=== PATIENT | female | born 2000 | race Caucasian/White ===

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

== ENCOUNTER 2021-06-08 08:36 | Emergency (ER) | payer OTHER, SELFPAY ==
[2021-06-08 08:40] VITALS: BP 134/74; PULSE 90; RESP 16; TEMP 36.3; O2SAT 99
--- NOTE | 2021-06-08 08:52 | W.ED.GENAD ---
Discharge Plan Disposition Patient Disposition: HOME Condition: Stable Discharge Details Clinical Impression: Laceration of left index finger Primary Care Provider: Meseret Rolon ED Provider: Yanira Shetty Home Meds and New Rx's Prescriptions: Continued loratadine 10 mg tablet 10 mg PO DAILY PRN (Reason: allergy symptoms) Qty: 90 RF: 4 clindamycin-benzoyl peroxide [Benzaclin] 1-5 % gel 1 applic topical DAILY Qty: 35 RF: 1 medroxyprogesterone 150 mg/mL syringe 150 mg IM [id number] Qty: 1 RF: 5 fluticasone propionate 16 GM spray,suspension 1 spray NS BID PRNQty: 16 RF: 2 albuterol sulfate [ProAir HFA] 90 mcg/actuation HFA aerosol inhaler 2 puff Inhalation Q4H Qty: 8.5 RF: 3 No Action tretinoin 0.025 % cream 1 applic topical QHS Qty: 45 RF: 1 ketotifen fumarate [Allergy Eye (ketotifen)] 10 ML drops 0 Ophthalmic BID PRNRF: 0 azelastine [Astepro] 205.5 MCG/0.137 ML spray,non-aerosol 1 spray NS BID PRNQty: 1 RF: 2 Flovent HFA 110 mcg/actuation HFA aerosol inhaler 2 puff Inhalation BID Qty: 1 RF: 0 Discharge Instructions Instructions: Finger Laceration (ED) Additional Instructions: Please keep clean and dry. Allowed to air dry at least 2 hours a day. Keep covered while at work or school. No soaking. May wash under running soap and water after 12 to 24 hours. After approximately 3 days scab should form. May apply antibiotic ointment for the first day if desired. Return to the ER for any signs of infection including red streaks, drainage, severe increased pain or swelling. Follow up with primary care provider in 3-5 days if needed. Return to ED sooner if any worsening or concerns. Increase oral fluids. Please take Tylenol or Ibuprofen with food every 4-6 hours as needed for pain and swelling. Stand Alone Forms: Work Release Referrals: Meseret Rolon [Primary Care Provider] - Return if symptoms worsen Discharge Data Discharge Date/Time-TO BE ENTERED AT DEPARTURE: 06/08/21 09:59 Medical Decision Making 20-year-old female presents to the ER chief complaint of left index finger avulsion injury which occurred approximately hour ago while at work. Patient states that she was cutting a cantaloupe and sustained a small approximately 0.3 cm avulsion to the dorsum of her left index finger. She does have full range of motion and intact sensation to the digit bleeding is controlled upon initial exam. This wound is nonsuturable at this time. Will place a nonadherent bandage and wrap. Last tetanus shot was 7 years ago according to medical records reviewed. No other associated symptoms at this time. Past medical history includes asthma, depression, allergies. Patient is right-hand dominant. Wound was cleaned with sterile normal saline and chlorhexidine by unit staff. Tissue adhesive applied. Will instruct patient on home care and strict return instructions. HPI General Mode of arrival: ambulatory. Date/Time Provider Initiated Documentation: 06/08/21 08:38. Limitations to Documentation: no limitations. Information obtained by: patient and RN notes reviewed. HPI Narrative: 20-year-old female presents to the ER chief complaint of left index finger avulsion injury which occurred approximately hour ago while at work. Patient states that she was cutting a cantaloupe and sustained a small approximately 0.3 cm avulsion to the dorsum of her left index finger. She does have full range of motion and intact sensation to the digit bleeding is controlled upon initial exam. This wound is nonsuturable at this time. Will place a nonadherent bandage and wrap. Last tetanus shot was 7 years ago according to medical records reviewed. No other associated symptoms at this time. Past medical history includes asthma, depression, allergies. Patient is right-hand dominant. Related Data Home Medications Medication Instructions Recorded Confirmed ketotifen fumarate [Allergy Eye 0 OPHTHALMIC BID PRN 02/11/14 11/06/20 (ketotifen)] azelastine [Astepro] 1 spray NS BID PRN #1 bot 12/23/15 06/08/21 fluticasone propionate 1 spray NS BID PRN #16 gm 12/23/15 06/08/21 albuterol sulfate 90 mcg/actuation 2 puff INHALATION Q4H #8.5 gm 01/01/19 11/06/20 aerosol inhaler fluticasone propionate 110 2 puff INHALATION BID #1 inhaler 01/01/19 06/08/21 mcg/actuation HFA aerosol inhaler tretinoin 0.025 % topical cream 1 applic TOPICAL QHS #45 g 06/19/20 06/08/21 clindamycin 1 %-benzoyl peroxide 5 1 applic TOPICAL DAILY #35 g 08/04/20 06/08/21 % topical gel loratadine 10 mg tablet 10 mg PO DAILY PRN #90 tab-cap 08/04/20 06/08/21 medroxyprogesterone 150 mg/mL 150 mg IM [id number] #1 ml 11/17/20 06/08/21 intramuscular syringe Previous Rx's Medication Instructions Recorded albuterol sulfate 90 mcg/actuation 2 puff INHALATION Q4H #8.5 gm 01/01/19 aerosol inhaler fluticasone propionate 110 2 puff INHALATION BID #1 inhaler 01/01/19 mcg/actuation HFA aerosol inhaler tretinoin 0.025 % topical cream 1 applic TOPICAL QHS #45 g 06/19/20 clindamycin 1 %-benzoyl peroxide 5 1 applic TOPICAL DAILY #35 g 08/04/20 % topical gel loratadine 10 mg tablet 10 mg PO DAILY PRN #90 tab-cap 08/04/20 medroxyprogesterone 150 mg/mL 150 mg IM [id number] #1 ml 11/17/20 intramuscular syringe Allergies Allergy/AdvReac Type Severity Reaction Status Date / Time No Known Allergies Allergy Verified 06/08/21 08:45 General Stated Complaint: Laceration SUMA: 4 Review of Systems All systems reviewed & are unremarkable except as noted in HPI and below Integumentary/Breasts Skin/Breast: Reports as per HPI and Reports wounds (Avulsion, laceration left index finger) [facility] Medical History Abnormal bruising Acne Allergic rhinitis (01/01/14) 01/03/13-Followed by [facility] Allergy- allergies to dust mites, cat, dog, other animals, tree, grass, weeds, mouse Anxiety and depression Asthma (01/01/14) intermittent trigger- allergies and URI's Congenital hallux valgus of both feet (02/21/17) Constipation with ileus Contraception Depression (04/25/17) Pain in lower jaw Respiratory syncytial virus bronchiolitis Surgical History [place] teeth extracted Family History Mother Personal history of malignant neoplasm breast cancer Mental disorder anxiety, panic disorder Other Diabetes MGM, maternal great grandparents Asthma maternal side Sister Asthma Social History Smoking/Tobacco Use Status: Current every day Tobacco Type: e-cigarettes Second Hand Exposure: No Smoking risk assessment performed?: Yes Alcohol Intake: never Substance use type: does not use Household members: family Housing: house Education Level: college Details: Starting [employer] Fall 2019- will live in dorm Pets and animals: Yes (2 dogs) Pets and animals: dog(s) Female Reproductive History Menstrual control method: progesterone injection History History 0 Para Hx # Term Pregnancies Multiple births Hx # Pregnancies Ectopic pregnancies AB induced Hx Number of Living Children AB spontaneous Exam Extrem Hand/finger images: 1. Avulsion down to second layer of dermis. FROM, sensation intat, CMS intact distally to injury. Course Vital Signs Vital signs: Vital Signs Temperature 36.3 C L 06/08/21 08:40 Pulse 90 06/08/21 08:40 Respiratory Rate 16 06/08/21 08:40 Blood Pressure 134/74 06/08/21 08:40 Pulse Oximetry 99 06/08/21 08:40 Temperature 36.3 C L 06/08/21 08:40 Temperature Source Skin 06/08/21 08:40 Pulse 90 06/08/21 08:40 Respiratory Rate 16 06/08/21 08:40 Respiratory Effort Non-Labored 06/08/21 08:40 Blood Pressure 134/74 06/08/21 08:40 Blood Pressure Position Sitting 06/08/21 08:40 Pulse Oximetry 99 06/08/21 08:40 Oxygen Delivery Method Room Air 06/08/21 08:40 Oxygen Flow Rate 0 06/08/21 08:40 Pain Level 6 06/08/21 08:40 Procedures Laceration Laceration 1: Site: hand (left index) Side (If applicable): left Size (cm): 0.3 Description: clean and other (Avulsion) Depth: simple, single layer Pre-repair: irrigated extensively Skin layer closed with: other (tissue adhesive )
[2021-06-08 09:17] VITALS: BP 134/74; PULSE 90; RESP 16; TEMP 36.3; O2SAT 99
== END 2021-06-08 09:59 | disposition home or self-care (01) ==
PROVIDERS: Emergency Provider Registered Nurse Emergency; PCP Nurse Practitioner Pediatrics
DX: S61.211A Laceration without foreign body of left index finger without damage to nail, initial encounter (principal); W26.0XXA Contact with knife, initial encounter; Y99.0 Civilian activity done for income or pay; Y93.G1 Activity, food preparation and clean up
CPT/HCPCS: 12001

== ENCOUNTER 2021-06-17 21:40 | Outpatient (REF) | payer OTHER, MEDICAID, SELFPAY ==
[2021-06-19 15:27] LABS: COVID-19 RT-PCR UVMMC Result Negative (Negative)
== END 2021-06-17 21:41 | disposition home or self-care (01) ==
LOC: LBN 21:40
PROVIDERS: PCP Nurse Practitioner Pediatrics; Visit Provider Nurse Practitioner Family
DX: Z20.822 Contact with and (suspected) exposure to COVID-19 (principal); J02.9 Acute pharyngitis, unspecified
CPT/HCPCS: U0003; 87070

== ENCOUNTER → 2022-05-27 16:42 | Outpatient (CLI) | payer OTHER, MEDICAID, SELFPAY ==
--- NOTE | 2022-05-27 16:00 | DI.RAD_ITS ---
Exam(s) XR ABDOMEN FLAT UPRIGHT EXAM: XR ABDOMEN FLAT UPRIGHT CLINICAL HISTORY: abdominal pain, R10.9. TECHNIQUE: 2D digital imaging was performed. COMPARISON: CR ABDOMEN FLAT PLATE from 12/23/2013 FINDINGS: 3 views Visualized lung bases are clear. Bowel gas pattern is nonspecific. No evidence of bowel obstruction . No free air. Normal amount of fecal material in the colon. No calcification over the kidneys in course of the ureters. Incidentally noted is transitional lumbosacral anatomy in the LS spine. IMPRESSION: Nonspecific bowel gas pattern. No obstruction. No free air. Other findings as above. DATA REPOSITORY: RADIATION DOSE DELIVERED:
== END ==
PROVIDERS: PCP Nurse Practitioner Pediatrics; Visit Provider Nurse Practitioner Family
DX: R10.9 Unspecified abdominal pain (principal)
CPT/HCPCS: 74019

== ENCOUNTER 2022-05-27 18:40 | Outpatient (CLI) | payer OTHER, MEDICAID, SELFPAY ==
[2022-05-27 16:16] LABS: Abs Immature Grans 0.03 10^3/uL (0.0-0.06); Absolute Basophil Count 0.07 10^3/uL (0.0-0.2); Absolute Eosinophil Count 0.25 10^3/uL (0.0-0.7); Absolute Lymphocyte Count 2.18 10^3/uL (1.2-3.4); Absolute Monocyte Count 0.57 10^3/uL (0.1-0.8); Basophils % 0.9; Eosinophils % 3.4; HCT 39.1 % (36.0-46.0); HGB 13.8 g/dL (11.2-15.7); Immature Grans % 0.4; Lymphocytes % 29.5; MCH 30.7 pg (27.0-33.0); MCHC 35.3 % (32.0-36.0); MCV 87 fL (80-95); MPV 9.1 fL (8.0-11.0); Monocytes % 7.7; Neutrophils % 58.1; Platelet Count 315 10^3/uL (130-400); RBC 4.49 10^6/uL (3.93-5.22); RDW-SD 38.6 fL
[2022-05-27 16:45] LABS: ALT 13 U/L (14-59); AST 12 U/L (15-37); Albumin 4.5 g/dL (3.4-5.0); Alkaline Phosphatase 55 U/L (46-116); Amylase 67 U/L (25-115); Anion Gap 11.8 mmol/L (3-11); BUN 11 mg/dL (7-18); Bilirubin, Total 0.5 mg/dL (0.2-1.0); CO2 23.2 mmol/L (21.0-32.0); Calcium 9.1 mg/dL (8.5-10.1); Chloride 104 mmol/L (98-107); Estimated GFR 82.71 (mL/min/1.73m2); Glucose 92 mg/dL (74-106); Lipase 141 U/L (73-393); Potassium 3.5 mmol/L (3.5-5.1); Sodium 139 mmol/L (136-145); Total Protein 8.3 g/dL (6.4-8.2)
== END 2022-05-27 18:41 | disposition home or self-care (01) ==
LOC: LBO 18:41
PROVIDERS: PCP Nurse Practitioner Pediatrics; Visit Provider Nurse Practitioner Family
DX: R10.9 Unspecified abdominal pain (principal)
CPT/HCPCS: 36415; 80053; 83690; 82150; 85025

== ENCOUNTER 2022-08-16 23:08 | Emergency (ER) | payer OTHER, MEDICAID, SELFPAY ==
[2022-08-16 23:12] VITALS: BP 131/72; PULSE 88; RESP 16; TEMP 36.9; O2SAT 97
--- NOTE | 2022-08-16 23:15 | DI.CT_ITS ---
Exam(s) CT ABDOMEN PELVIS W EXAM: CT ABDOMEN PELVIS W INDICATION: rlq pain, r/o appe. COMPARISON: No exams were available for comparison TECHNIQUE: FINDINGS: CT examination of the abdomen and pelvis was performed with intravenous infusion of 100 cc of Omnipaq ue 350. Images obtained through the lung bases are unremarkable. The liver is unremarkable in appearance. Gallbladder and bile ducts are CT normal. Pancreas appears normal. Spleen is unremarkable in appearance. Adrenals appear normal. There is a small nonobstructing right renal stone period otherwise the kidneys are unremarkable appea regi with no evidence of mass hydronephrosis. No ureteral calcification. Urinary bladder nearly em pty but grossly unremarkable. Abdominal aorta is of normal diameter and no major vascular abnormality is seen. No abdominal wall hernia. No abdominal or pelvic adenopathy. 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 Appendix is normal. No evidence of diverticulitis or bowel obstruction. IMPRESSION: Negative CT examination of the abdomen and pelvis. RADIATION DOSE DELIVERED: 682.67mGy.cm Total DLP 682.67mGy.cm Total DLP RADIATION OPTIMIZATION: All CT scans at this facility use at least one of these dose optimization te chniques: automated exposure control; mA and/or kV adjustment per patient size (includes targeted exa ms where dose is matched to clinical indication); or iterative reconstruction.
[2022-08-16 23:23] LABS: Bilirubin Negative (Negative); Blood Trace-intact (Negative); Clarity Cloudy (Clear); Glucose Negative (Negative); Ketones Trace mg/dL (Negative); Leukocyte Esterase Negative (Negative); Nitrite Negative (Negative); Specific Gravity 1.025 (1.005-1.025); pH 7.5 (5-8)
--- NOTE | 2022-08-16 23:30 | ED.GENADUL_ITS ---
Discharge Plan Disposition Patient Disposition: Home Condition: Good Discharge Details Chief Complaint: Abd Prob Clinical Impression: Abdominal discomfort Primary Care Provider: Meseret Rolon ED Provider: Joseph Leigh Home Meds and New Rx's Prescriptions: No Action clindamycin-benzoyl peroxide [Benzaclin] 1-5 % gel 1 applic topical DAILY Qty: 35 1RF Rx Instructions: apply to clean dry skin in the morning and wash off in the evening loratadine 10 mg tablet 10 mg PO DAILY PRN (Reason: allergy symptoms) Qty: 90 4RF Rx Instructions: take one tablet once a day at bedtime (DME) RiteFlo Aerochamber Spacer See Rx Instructions .Route Qty: 1 0RF Rx Instructions: As directed medroxyprogesterone [Depo-Provera] 150 mg/mL syringe 150 mg IM ONCE Qty: 1 0RF triamcinolone acetonide 0.1 % ointment 1 applic topical BID Qty: 30 1RF Rx Instructions: apply thin layer to eczema lesions twice a day for 7 days docusate sodium [Colace] 100 mg capsule 100 mg PO DAILY Qty: 60 1RF esomeprazole magnesium [Nexium] 20 mg capsule,delayed release(DR/EC) 20 mg PO DAILY Qty: 30 1RF azelastine [Astepro] 205.5 MCG/0.137 ML spray,non-aerosol 1 spray NS BID PRNQty: 1 Rx Instructions: use for allergies albuterol sulfate [ProAir HFA] 90 mcg/actuation HFA aerosol inhaler 2 puff Inhalation Q4H Qty: 8.5 3RF Rx Instructions: take 2 puffs (5 minutes apart) 15 minutes prior to exercise and every 4 hours as needed for wheezing Discharge Instructions Instructions: Abdominal Pain (ED) Additional Instructions: At this time your laboratory work-up and CAT scan showed no significant abnormalities. Your work-up is reassuring. Please continue to take Tylenol and Motrin as needed for pain. If you notice any worsening of your symptoms, or any new symptoms such as vomiting, diarrhea, fever, chills, shortness of breath, chest pain, numbness, weakness, or fainting , please return immediately to the emergency department for reevaluation. Please follow up with your primary care provider as soon as possible for reassessment and reevaluation. As always, it was a pleasure participating in your medical care today. Referrals: Meseret Rolon NP [Primary Care Provider] - Medical Decision Making This is a pleasant 22-year-old female with a past medical history of GERD, who presents today for evaluation of right lower quadrant pain. Patient states that at 8 PM sharp she developed sudden onset sharp right lower quadrant pain. Does not appear to be related to food. She took Tylenol at 7 PM for headache, but is otherwise taking no medications. She denies any vomiting or diarrhea. She denies any vaginal discharge or urinary complaints. She has never had pain like this before. No other complaints at this time. Pain is constant, not waxing and waning. Worse with palpation. Exam demonstrates a well-appearing female, mild right lower quadrant tenderness, positive Rovsing's, negative obturator and psoas sign. Differential includes appendicitis, ovarian cyst, but symptoms are inconsistent at this time with torsion. We will get a CT scan, treat the patient's pain, monitor closely and reassess. 12:38 AM On reassessment patient is feeling much better. Repeat exam continues to show no evidence of an acute surgical abdomen. Laboratory work-up is returned notably benign. No significant abnormalities. Lactate normal. No white count bandemia or left shift. Urinalysis negative for significant blood or infection. CT scan results have returned, no acute process per virtual radiology. At this time symptoms are clinically inconsistent with tubo-ovarian abscess, ovarian torsion, appendicitis, or other acute surgical abnormality clinically. Patient stable for discharge. Recommend continue NSAIDs at home. Recommend continued hydration at home. Discussed red flags for which to return. I have extensively reviewed the treatment plan and discharge instructions with the patient and their family. I have addressed all patient concerns at this time. The patient and family was made aware of what symptoms to monitor for that would warrant a return to the emergency department. Discussed the plan with the patient and family, they demonstrate verbal understanding and agreement with our assessment and plan at this time. The documentation in this chart was dictated using [employer] dictation software. Please excuse any dictation errors. FINDINGS: Liver: Normal. No mass. Gallbladder and bile ducts: Normal. No calcified stones. No ductal dilation. Pancreas: Normal. No ductal dilation. Spleen: Normal. No splenomegaly. Adrenal glands: Normal. No mass. Kidneys and ureters: Normal. No hydronephrosis. Stomach and bowel: Unremarkable. No obstruction. No mucosal thickening. Appendix: No evidence of appendicitis. Intraperitoneal space: Unremarkable. No free air. No significant fluid collection. Vasculature: Unremarkable. No abdominal aortic aneurysm. Lymph nodes: Unremarkable. No enlarged lymph nodes. Urinary bladder: Unremarkable as visualized. Reproductive: Unremarkable as visualized. Bones/joints: Unremarkable. No acute fracture. Soft tissues: Unremarkable. IMPRESSION: No acute findings. Thank you for allowing us to participate in the care of your patient. Dictated and Authenticated by: Jose Fabian MD 08/17/2022 12:30 AM Eastern Time ([place] & [place]) Sign Out No HPI General Date/Time Provider Initiated Documentation: 08/16/22 23:10 . HPI Narrative: This is a pleasant 22-year-old female with a past medical history of GERD, who presents today for evaluation of right lower quadrant pain. Patient states that at 8 PM sharp she developed sudden onset sharp right lower quadrant pain. Does not appear to be related to food. She took Tylenol at 7 PM for headache, but is otherwise taking no medications. She denies any vomiting or diarrhea. She denies any vaginal discharge or urinary complaints. She has never had pain like this before. No other complaints at this time. Pain is constant, not waxing and waning. Worse with palpation. Related Data Home Medications Medication Instructions Recorded Confirmed azelastine 205.5 mcg (0.15 %) 1 spray NS BID PRN ##1 12/23/15 08/17/22 nasal spray (Astepro) clindamycin 1 %-benzoyl peroxide 5 1 applic topical DAILY #35 grams 08/04/20 08/17/22 % topical gel (Benzaclin) triamcinolone acetonide 0.1 % 1 applic topical BID #30 grams 09/16/21 08/17/22 topical ointment inhalational spacing device #1 ea 01/17/22 07/21/22 (RiteFlo Aerochamber) loratadine 10 mg tablet 10 mg PO DAILY PRN allergy 01/17/22 08/17/22 symptoms #90 tab-caps albuterol sulfate 90 mcg/actuation 2 puff inhalation Q4H #8.5 grams 07/15/22 08/17/22 aerosol inhaler (ProAir HFA) docusate sodium 100 mg capsule 100 mg PO DAILY #60 caps 07/21/22 08/17/22 (Colace) esomeprazole magnesium 20 mg 20 mg PO DAILY #30 caps 07/21/22 08/17/22 capsule,delayed release (Nexium) Previous Rx's Medication Instructions Recorded clindamycin 1 %-benzoyl peroxide 5 1 applic topical DAILY #35 grams 08/04/ % topical gel (Benzaclin) triamcinolone acetonide 0.1 % 1 applic topical BID #30 grams 09/16/21 topical ointment inhalational spacing device #1 ea 01/17/22 (RiteFlo Aerochamber) loratadine 10 mg tablet 10 mg PO DAILY PRN allergy 01/17/22 symptoms #90 tab-caps albuterol sulfate 90 mcg/actuation 2 puff inhalation Q4H #8.5 grams 07/15/22 aerosol inhaler (ProAir HFA) docusate sodium 100 mg capsule 100 mg PO DAILY #60 caps 07/21/22 (Colace) esomeprazole magnesium 20 mg 20 mg PO DAILY #30 caps 07/21/22 capsule,delayed release (Nexium) Allergies Allergy/AdvReac Type Severity Reaction Status Date / Time No Known Allergies Allergy Verified 07/21/22 10:00 General Stated Complaint: Abd Prob SUMA: 3 Review of Systems All systems reviewed & are unremarkable except as noted in HPI and below PFSH All Active Problems (Updated 08/17/22 @ 00:41 by Joseph Leigh DO) Abdominal discomfort (Acute) Abdominal pain (Acute) Eczema (Acute) Laceration of left index finger (Acute) Temporomandibular joint disorder (Acute) Abnormal bruising (Acute) Acne (Acute) Pain in lower jaw (Acute) Anxiety and depression (Acute) Contraception (Chronic) 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) Asthma (Chronic 01/01/14) intermittent trigger- allergies and URI's Allergic rhinitis (Chronic 01/01/14) 01/03/13-Followed by [facility] Allergy- allergies to dust mites, cat, dog, other animals, tree, grass, weeds, mouse Medical History Constipation with ileus Respiratory syncytial virus bronchiolitis Surgical History Mitchell teeth extracted Family History Mother Personal history of malignant neoplasm breast cancer Mental disorder anxiety, panic disorder Other Diabetes MGM, maternal great grandparents Asthma maternal side Sister Asthma Social History Smoking/Tobacco Use Status: Current every day Tobacco Type: e-cigarettes Second Hand Exposure: No Smoking risk assessment performed?: Yes Alcohol Intake: never Substance use type: does not use Household members: family Housing: house Education Level: college Details: Starting [employer] Fall 2019- will live in dorm Pets and animals: Yes (2 dogs) Pets and animals: dog(s) Female Reproductive History Menstrual control method: progesterone injection History History 0 Para Hx # Term Pregnancies Multiple births Hx # Pregnancies Ectopic pregnancies AB induced Hx Number of Living Children AB spontaneous Exam Narrative Exam Narrative: 1.Const: Well-nourished, Well-developed, appearing stated age 2.Eyes: PERRL, no conjunctival injection, and symmetrical lids. 3.ENT: Atraumatic external nose and ears. Moist MM. Neck: Symmetric, trachea midline, No thyromegaly. 4.CVS: +S1/S2, No murmurs or gallops. Peripheral pulses 2+ and equal in all extremities. Brisk capillary refill in all extremities. 5.RESP: Unlabored respiratory effort. Clear to auscultation bilaterally. No wheezes rales or rhonchi 6.GI: Soft, nondistended, no guarding or rebound. Mild pain in the right lower quadrant. Positive Rovsing sign. No peritoneal signs. Negative Flynn sign. No CVA tenderness. Positive right heel strike test, negative obturator and psoas sign. 7.MSK: Normocephalic/Atraumatic, Extremities w/o deformity or ttp No cyanosis or clubbing, Normal movement of all extremities 8.Skin: Warm, Dry. No rashes or lesions. 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 Sensation grossly intact, no focal neurologic deficits. 10.Psych: (AAO) x3. Appropriate mood and affect Course Vital Signs Vital signs: Vital Signs Temperature 36.9 C 08/16/22 23:12 Pulse 88 08/16/22 23:12 Respiratory Rate 16 08/16/22 23:12 Blood Pressure 131/72 08/16/22 23:12 Pulse Oximetry 97 08/16/22 23:12 Temperature 36.9 C 08/16/22 23:12 Temperature Source Temporal Artery Scan 08/16/22 23:12 Pulse 88 08/16/22 23:12 Respiratory Rate 16 08/16/22 23:12 Respiratory Effort 08/16/22 23:12 Blood Pressure 131/72 08/16/22 23:12 Blood Pressure Position Sitting 08/16/22 23:12 Pulse Oximetry 97 08/16/22 23:12 Pain Level 7 08/16/22 23:12 Lab/Test Results Lab/Test Results: POC- Test(urine) Negative
[2022-08-16 23:33] LABS: Bacteria Few HPF (Negative); C & S Indicated? No; Crystals Moderate Amorphous HPF (Negative); Epithelial Cells Moderate HPF (Negative); Mucus Negative (Negative); RBC 0-2 HPF (0-2); WBC 0-2 HPF (0-5)
[2022-08-16] MEDS: Ketorolac 15 MG/ML VIAL IVP (23:39)
[2022-08-16] MEDS: Normal Saline 1,000 ML 1000 ML IV (23:39)
[2022-08-16 23:42] LABS: Abs Immature Grans 0.02 10^3/uL (0.0-0.06); Absolute Basophil Count 0.07 10^3/uL (0.0-0.2); Absolute Eosinophil Count 0.29 10^3/uL (0.0-0.7); Absolute Lymphocyte Count 2.42 10^3/uL (1.2-3.4); Absolute Monocyte Count 0.53 10^3/uL (0.1-0.8); Absolute Neutrophil Count 4.52 10^3/uL (1.2-6.7); Basophils % 0.9; Eosinophils % 3.7; HCT 38.6 % (36.0-46.0); Immature Grans % 0.3; Lymphocytes % 30.8; MCH 30.7 pg (27.0-33.0); MCHC 33.7 % (32.0-36.0); MCV 91 fL (80-95); MPV 9.3 fL (8.0-11.0); Monocytes % 6.8; Neutrophils % 57.5; Platelet Count 315 10^3/uL (130-400); RBC 4.24 10^6/uL (3.93-5.22); RDW 12.1 % (11.7-14.6); RDW-SD 40.5 fL; WBC 7.85 10^3/uL (4.4-10.8)
[2022-08-16 23:44] LABS: Lactate 0.6 mmol/L (0.9-1.7)
[2022-08-16] MEDS: Normal Saline - Diluent 50 ML VIAL IV (23:49)
[2022-08-16] MEDS: Omnipaque 350 MG/ML 100 ML BTL IJ (23:49)
--- NOTE | 2022-08-16 23:49 | NUR.NOTE ---
Pt medicated with toradol, IV disconnected for CT Nursing Note:
[2022-08-16] MEDS: Normal Saline Flush 10 ML SYR IVP (23:52)
[2022-08-17 00:02] LABS: ALT 13 U/L (14-59); AST 12 U/L (15-37); Albumin 4.7 g/dL (3.4-5.0); Alkaline Phosphatase 56 U/L (46-116); Anion Gap 11.1 mmol/L (3-11); BUN 13 mg/dL (7-18); Bilirubin, Total 0.4 mg/dL (0.2-1.0); CO2 24.9 mmol/L (21.0-32.0); Chloride 105 mmol/L (98-107); Glucose 101 mg/dL (74-106); Potassium 3.6 mmol/L (3.5-5.1); Sodium 141 mmol/L (136-145)
--- NOTE | 2022-08-17 00:31 | DI.VRAD_ITS ---
PROCEDURE INFORMATION: Exam: CT Abdomen And Pelvis With Contrast Exam date and time: 08/16/2022 11:51 PM Age: 22 years old Clinical indication: Other: Rlq pain, R/O appe TECHNIQUE: Imaging protocol: Computed tomography of the abdomen and pelvis with contrast. Radiation optimization: All CT scans at this facility use at least one of these dose optimization techniques: automated exposure control; mA and/or kV adjustment per patient size (includes targeted exams where dose is matched to clinical indication); or iterative reconstruction. Contrast material: OMNIPAQUE 350; Contrast volume: 100 ml; Contrast route: INTRAVENOUS (IV); COMPARISON: US ABDOMEN 07/21/2022 1:33 PM FINDINGS: Liver: Normal. No mass. Gallbladder and bile ducts: Normal. No calcified stones. No ductal dilation. Pancreas: Normal. No ductal dilation. Spleen: Normal. No splenomegaly. Adrenal glands: Normal. No mass. Kidneys and ureters: Normal. No hydronephrosis. Stomach and bowel: Unremarkable. No obstruction. No mucosal thickening. Appendix: No evidence of appendicitis. Intraperitoneal space: Unremarkable. No free air. No significant fluid collection. Vasculature: Unremarkable. No abdominal aortic aneurysm. Lymph nodes: Unremarkable. No enlarged lymph nodes. Urinary bladder: Unremarkable as visualized. Reproductive: Unremarkable as visualized. Bones/joints: Unremarkable. No acute fracture. Soft tissues: Unremarkable. IMPRESSION: No acute findings. Dictated and Authenticated by: Jose Fabian MD. Ordering:DANITZA Ruiz MD
[2022-08-17 00:43] VITALS: BP 118/78; PULSE 67; RESP 16; TEMP 37.3; O2SAT 99
== END 2022-08-17 00:48 | disposition home or self-care (01) ==
PROVIDERS: Registered Nurse Emergency; Emergency Provider Student in an Organized Health Care Education/Training Program; PCP Nurse Practitioner Pediatrics
DX: R10.31 Right lower quadrant pain (principal); R51.9 Headache, unspecified; R10.813 Right lower quadrant abdominal tenderness
CPT/HCPCS: 36415; 80053; 81025; 96361; 96374; 99285; 74177; 81003; 81015; 83605; 85025; 99284; J1885; J3490

== ENCOUNTER 2022-09-21 10:48 | Outpatient (REF) | payer OTHER, MEDICAID, SELFPAY ==
--- NOTE | 2022-09-21 09:05 | PAPFT_PTH ---
PATIENT: Kendra Espinoza LOC: [facility] U#:[id number] AGE/SX: 22/F ROOM: RE09/21/[address]: Jennifer Sim NP : 2000 BED: DIS: 09/21/2022 SPEC #: [id number] RECD: 09/21/22 13:16 STATUS: DOMO REQ #: [id number] MARLYN: 09/21/22 09:[address]: Jennifer Sim NP DEPT: [facility] Cytology RECD BY: Sangeetha Mcgee ENTERED: 09/21/22 13:16 SP TYPE: PAPFT OTHR DR: JACQUELINE Edmondson Tissues: 1 - CX/ENDOCX FOR PAP SMEARS Procedures: PAP THIN PREP/[facility] Screening Comments: [id number] (CHLAMYDIA/GC)
[2022-09-22 14:57] LABS: Chlamydia Result Negative (Negative); GC Result Negative (Negative)
== END 2022-09-21 10:49 | disposition home or self-care (01) ==
LOC: LBN 10:48
PROVIDERS: PCP Nurse Practitioner Pediatrics; Visit Provider Nurse Practitioner Women's Health
DX: Z12.4 Encounter for screening for malignant neoplasm of cervix (principal); Z11.3 Encounter for screening for infections with a predominantly sexual mode of transmission; R87.612 Low grade squamous intraepithelial lesion on cytologic smear of cervix (LGSIL)
CPT/HCPCS: 87491; 87591; 88142

== ENCOUNTER 2022-10-10 02:09 | Outpatient (CLI) | payer OTHER, MEDICAID, SELFPAY ==
--- NOTE | 2022-10-10 07:00 | DI.US_ITS ---
Exam(s) US PELVIS TRANSVAGINAL EXAM: US PELVIS TRANSVAGINAL CLINICAL HISTORY: f/u R ovarian cyst, pelvic pain,R10.2,RLQ PAIN. TECHNIQUE: Transabdominal and transvaginal pelvic ultrasound was performed using standard protocol. COMPARISON: US US ABD PELV TRANSVAG NON-OB from 09/01/2022 FINDINGS: KIDNEYS: Limited renal evaluation is unremarkable. UTERUS: Position: Anteverted. Size: 6.0 long by 2.7 AP by 3.9 transverse cm Endometrium: 0.8 cm. Normal for patient's menstrual status. Myometrium: Unremarkable. Cervix: Unremarkable. OVARIES: Right: 3.4 x 1.7 x 1.7 cm Cyst or mass: No suspicious cystic or solid masses. The right renal cyst has resolved. There are sm all, less than 6 mm, follicles in the right ovary. Left: 2.7 x 2.8 x 1.4 cm Cyst or mass: No suspicious cystic or solid masses. There are small, less than 6 mm, follicles in th e left ovary. DOPPLER: Color: Symmetric and uniform flow to both ovaries. CUL-DE-SAC: Free fluid: None. Other: None. IMPRESSION: 1. Limited evaluation of the kidneys is unremarkable. 2. Normal-appearing uterus with endometrial stripe within normal limits. 3. Unremarkable bilateral ovaries. DATA REPOSITORY:
== END 2022-10-10 02:29 ==
LOC: DI 02:09
PROVIDERS: PCP Nurse Practitioner Pediatrics; Visit Provider Nurse Practitioner Women's Health
DX: R10.2 Pelvic and perineal pain (principal); R10.31 Right lower quadrant pain; N83.01 Follicular cyst of right ovary; N83.02 Follicular cyst of left ovary
CPT/HCPCS: 76830; 76856

== ENCOUNTER 2022-10-14 14:07 | Outpatient (REF) | payer OTHER, MEDICAID, SELFPAY ==
--- NOTE | 2022-10-14 14:00 | ENDO_PTH ---
PATIENT: Kendra Espinoza LOC: [facility] U#:[id number] AGE/SX: 22/F ROOM: RE10/14/[address]: Rosey Medley : 2000 BED: DIS: 10/14/2022 SPEC #: [id number] RECD: 10/14/22 17:49 STATUS: DOMO REQ #: [id number] MARLYN: 10/14/22 14:[address]: Rosey Medley DEPT: Surgical Specimen RECD BY: Sangeetha Mcgee ENTERED: 10/14/22 17:50 SP TYPE: Endo OTHR DR: JACQUELINE Edmondson Tissues: 1 - ENDOCERVICAL BX/CURRETTE 2 - CERVICAL BIOPSY Procedures: GROSS AND MICRO LEVEL 4 P16 IPEX Comments: [id number]
== END 2022-10-14 14:08 | disposition home or self-care (01) ==
LOC: LBN 14:07
PROVIDERS: PCP Nurse Practitioner Pediatrics; Visit Provider Obstetrics & Gynecology Gynecology
DX: N87.9 Dysplasia of cervix uteri, unspecified (principal); R87.610 Atypical squamous cells of undetermined significance on cytologic smear of cervix (ASC-US)
CPT/HCPCS: 88305; 88342

== ENCOUNTER 2023-05-08 02:32 | Outpatient (CLI) | payer OTHER, MEDICAID, SELFPAY ==
[2023-05-08 15:56] LABS: Abs Immature Grans 0.02 10^3/uL (0.0-0.06); Absolute Basophil Count 0.04 10^3/uL (0.0-0.2); Absolute Eosinophil Count 0.16 10^3/uL (0.0-0.7); Absolute Lymphocyte Count 1.85 10^3/uL (1.2-3.4); Absolute Monocyte Count 0.33 10^3/uL (0.1-0.8); Absolute Neutrophil Count 2.88 10^3/uL (1.2-6.7); Basophils % 0.8; HCT 37.4 % (36.0-46.0); HGB 12.6 g/dL (11.2-15.7); Immature Grans % 0.4; MCH 30.6 pg (27.0-33.0); MCHC 33.7 % (32.0-36.0); MCV 91 fL (80-95); Monocytes % 6.3; Neutrophils % 54.5; Platelet Count 271 10^3/uL (130-400); RBC 4.12 10^6/uL (3.93-5.22); RDW 12.3 % (11.7-14.6); RDW-SD 40.8 fL; WBC 5.28 10^3/uL (4.4-10.8)
[2023-05-08 16:05] LABS: ESR < 1 mm/hr (0-20)
[2023-05-08 16:54] LABS: ALT 14 U/L (14-59); AST 10 U/L (15-37); Albumin 4.1 g/dL (3.4-5.0); Alkaline Phosphatase 46 U/L (46-116); Anion Gap 10.6 mmol/L (3-11); BUN 11 mg/dL (7-18); Bilirubin, Total 0.4 mg/dL (0.2-1.0); C-Reactive Protein 0.07 mg/dL (0.0-0.3); CO2 24.4 mmol/L (21.0-32.0); CREATININE 0.9 mg/dL (0.55-1.02); Calcium 8.4 mg/dL (8.5-10.1); Chloride 105 mmol/L (98-107); Estimated GFR 93.28 (mL/min/1.73m2); Glucose 97 mg/dL (74-106); Potassium 3.5 mmol/L (3.5-5.1); Sodium 140 mmol/L (136-145); TSH (W/Ref FT4) 1.17 uIU/mL (0.36-3.74); Total Protein 7.4 g/dL (6.4-8.2)
[2023-05-10 17:33] LABS: Food Panel 0.97 kU/L (<0.70)
== END 2023-05-08 02:33 | disposition home or self-care (01) ==
LOC: LBO 02:32
PROVIDERS: PCP Nurse Practitioner Family; Visit Provider Nurse Practitioner Family
DX: R10.9 Unspecified abdominal pain (principal); R11.0 Nausea
CPT/HCPCS: 36415; 80053; 85652; 84443; 85025; 86003; 86140

== ENCOUNTER 2023-10-17 14:50 | Outpatient (REF) | payer OTHER, MEDICAID, SELFPAY | END 2023-10-17 14:51 | disposition home or self-care (01) | LOC: LBN 14:50 | PROVIDERS: PCP Nurse Practitioner Family; Visit Provider Obstetrics & Gynecology | DX: R10.31 Right lower quadrant pain (principal); N39.0 Urinary tract infection, site not specified | CPT/HCPCS: 87086 ==

== ENCOUNTER 2023-10-22 17:46 | Emergency (ER) | payer OTHER, SELFPAY ==
[2023-10-22 17:50] VITALS: BP 126/78; PULSE 77; RESP 16; TEMP 37.2; O2SAT 100
--- NOTE | 2023-10-22 18:00 | DI.CT_ITS ---
Exam(s) CT ABDOMEN PELVIS W EXAM: CT ABDOMEN PELVIS W CLINICAL HISTORY: RLQ pain. TECHNIQUE: Imaging Protocol: Axial computed tomography images with coronal and sagittal reformatted images were created and reviewed CONTRAST MATERIAL: Intravenous: Omnipaque 350 Contrast volume:75 ml Oral: / no COMPARISON: CT CT ABDOMEN PELVIS W from 08/16/2022 FINDINGS: ABDOMEN and PELVIS: Lung Bases: No acute findings. Liver: Normal density. No measurable mass. Gallbladder and biliary tract: No radiodense calculus or dilation. Pancreas: Normal density. No abnormal calcifications or inflammatory process. No evidence of mass. Spleen: Normal. Kidneys: Normal size, contour and axis. Question tiny nonobstructing stone right kidney. No obstruc tive uropathy. No suspicious masses seen. Adrenal glands: No masses seen. Vasculature: Abdominal aorta non-dilated. Soft tissues: Unremarkable. Bladder: No gross wall thickening. No calculi.No focal mass. Bowel: No obstruction. No bowel wall thickening. Appendix normal. Peritoneal cavity: No ascites. No focal collection or mesenteric inflammatory response. Bones: Unremarkable for age. Reproductive organs: Within normal limits. Ovaries difficult to discern due to adjacent bowel. Corpu s luteum cyst right ovary. Trace free fluid. Lymph nodes: Unremarkable. IMPRESSION:: Corpus luteum cyst right ovary. Trace illness sac fluid. RADIATION DOSE DELIVERED: 508.39mGy.cm Total DLP DATA REPOSITORY: All CT scans at this facility are submitted to the National Radiology Data Registry (NRDR) Dose Index Registry (DIR) with the [employer] (ACR). RADIATION OPTIMIZATION: All CT scans at this facility use at least one of these dose optimization te chniques: automated exposure control; mA and/or kV adjustment per patient size (includes targeted exa ms where dose is matched to clinical indication); or iterative reconstruction.
[2023-10-22] MEDS: Ketorolac 15 MG/ML VIAL IVP (18:26)
[2023-10-22] MEDS: Normal Saline 1,000 ML 1000 ML IV (18:27)
[2023-10-22] MEDS: Ondansetron 4 MG/2 ML VIAL IVP (18:27)
[2023-10-22 18:30] LABS: Abs Immature Grans 0.02 10^3/uL (0.0-0.06); Absolute Basophil Count 0.09 10^3/uL (0.0-0.2); Absolute Lymphocyte Count 1.79 10^3/uL (1.2-3.4); Absolute Monocyte Count 0.41 10^3/uL (0.1-0.8); Absolute Neutrophil Count 3.19 10^3/uL (1.2-6.7); Basophils % 1.5; Eosinophils % 6.8; HCT 42.8 % (36.0-46.0); HGB 14.8 g/dL (11.2-15.7); Immature Grans % 0.3; Lymphocytes % 30.3; MCHC 34.6 % (32.0-36.0); MCV 90 fL (80-95); MPV 9.2 fL (8.0-11.0); Monocytes % 6.9; Neutrophils % 54.2; Platelet Count 304 10^3/uL (130-400); RBC 4.77 10^6/uL (3.93-5.22); RDW 12.2 % (11.7-14.6); RDW-SD 40.7 fL
[2023-10-22 18:32] LABS: Bilirubin Negative (Negative); Blood Negative (Negative); Clarity Clear (Clear); Glucose Negative (Negative); Ketones Negative (Negative); Leukocyte Esterase Negative (Negative); Nitrite Negative (Negative); Urobilinogen 0.2 mg/dL (Up to 0.2); pH 7.5 (5-8)
[2023-10-22] MEDS: Omnipaque 350 MG/ML 100 ML BTL IJ (18:40)
[2023-10-22 18:45] LABS: ALT 22 U/L (14-59); AST 15 U/L (15-37); Albumin 4.5 g/dL (3.4-5.0); Alkaline Phosphatase 55 U/L (46-116); Anion Gap 11.6 mmol/L (3-11); BUN 9 mg/dL (7-18); Bilirubin, Total 0.4 mg/dL (0.2-1.0); CO2 25.4 mmol/L (21.0-32.0); CREATININE 0.9 mg/dL (0.55-1.02); Calcium 9.3 mg/dL (8.5-10.1); Chloride 103 mmol/L (98-107); Glucose 100 mg/dL (74-106); Magnesium 2.3 mg/dL (1.8-2.4); Potassium 3.6 mmol/L (3.5-5.1); Sodium 140 mmol/L (136-145); Total Protein 8.3 g/dL (6.4-8.2)
[2023-10-22] MEDS: Normal Saline - Diluent 50 ML VIAL IJ (18:45)
--- NOTE | 2023-10-22 18:48 | ED.GENADUL_ITS ---
HPI General Mode of arrival: ambulatory . Date/Time Provider Initiated Documentation: 10/22/23 17:47 . Limitations to Documentation: no limitations . Information obtained by: patient and RN notes reviewed . History of Present Illness 23 year old F presents to the emergency department with the chief complaint of Right flank pain, described as moderate, Quality is described as sharp, and is localized to the abdomen. Patient started experiencing this day(s) (9) and it has been constant. No relieving factors improve symptom(s), No exacerbating factors reported . Patient did receive the following treatments prior to arrival, none Related Data Home Medications Medication Instructions Recorded Confirmed azelastine 205.5 mcg (0.15 %) 1 spray NS BID PRN ##1 12/23/15 10/22/23 nasal spray (Astepro) clindamycin 1 %-benzoyl peroxide 5 1 applic topical DAILY #35 grams 08/04/20 10/22/23 % topical gel (Benzaclin) triamcinolone acetonide 0.1 % 1 applic topical BID #30 grams 09/16/21 10/22/23 topical ointment inhalational spacing device #1 ea 01/17/22 10/22/23 (RiteFlo Aerochamber) loratadine 10 mg tablet 10 mg PO DAILY PRN allergy 01/17/22 10/22/23 symptoms #90 tab-caps fluticasone propionate 50 1 spray intranasal DAILY PRN 07/13/23 10/22/23 mcg/actuation nasal sinusitis #16 grams spray,suspension calcium citrate See Rx Instructions PO DAILY 08/02/23 10/22/23 albuterol sulfate 90 mcg/actuation 2 puff inhalation Q4H #8.5 grams 09/12/23 10/22/23 aerosol inhaler (ProAir HFA) ibuprofen 600 mg tablet (IBU) 600 mg PO QID PRN pain #20 tabs 10/22/23 Previous Rx's Medication Instructions Recorded clindamycin 1 %-benzoyl peroxide 5 1 applic topical DAILY #35 grams 08/04/20 % topical gel (Benzaclin) triamcinolone acetonide 0.1 % 1 applic topical BID #30 grams 09/16/21 topical ointment inhalational spacing device #1 ea 01/17/22 (RiteFlo Aerochamber) loratadine 10 mg tablet 10 mg PO DAILY PRN allergy 01/17/22 symptoms #90 tab-caps fluticasone propionate 50 1 spray intranasal DAILY PRN 07/13/23 mcg/actuation nasal sinusitis #16 grams spray,suspension albuterol sulfate 90 mcg/actuation 2 puff inhalation Q4H #8.5 grams 09/12/23 aerosol inhaler (ProAir HFA) ibuprofen 600 mg tablet (IBU) 600 mg PO QID PRN pain #20 tabs 10/22/23 Allergies Allergy/AdvReac Type Severity Reaction Status Date / Time No Known Allergies Allergy Verified 10/22/23 18:30 General Stated Complaint: FlankPain SUMA: 3 Review of Systems Constitutional Constitutional: Denies chills, Denies fever(s) and Denies poor appetite Cardiovascular Cardiovascular: Denies chest pain and Denies dyspnea Respiratory Respiratory: Denies cough and Denies dyspnea Gastrointestinal Gastrointestinal: Reports as per HPI, Reports abdominal pain, Denies melena, Denies change in bowel habits, Denies constipation, Denies diarrhea, Reports nausea and Denies vomiting Genitourinary Genitourinary: Denies hematuria, Denies dysmenorrhea, Denies pelvic pain and Reports flank pain Integumentary/Breasts Skin/Breast: Denies rash Exam Const General: cooperative Orientation: alert, awake and oriented x3 Resp Effort & Inspection: normal respiratory effort and able to speak in complete sentences Auscultation: clear to auscultation bilaterally Cardio Rate: regular rate Rhythm: regular rhythm Heart Sounds: S1 normal and S2 normal GI Palpation: soft, not firm, no guarding, no masses, no pulsatile masses, not rigid and tender in the RLQ and at McBurney's point; Flynn's sign negative and Rovsing's sign negative Auscultation: normal bowel sounds Back/Spine/Pelvis Back: no CVA tenderness Neuro General: patient alert, patient awake, patient oriented x3, gait normal and moves all extremities Course Vital Signs Vital signs: Vital Signs Temperature 37.2 C 10/22/23 17:50 Pulse 77 10/22/23 17:50 Respiratory Rate 16 10/22/23 17:50 Blood Pressure 126/78 10/22/23 17:50 Pulse Oximetry 100 10/22/23 17:50 Temperature 37.2 C 10/22/23 17:50 Pulse 77 02/11/24 17:50 Respiratory Rate 16 10/22/23 17:50 Respiratory Effort Normal, Non-Labored 10/22/23 17:53 Blood Pressure 126/78 10/22/23 17:50 Blood Pressure Position Sitting 10/22/23 17:50 Pulse Oximetry 100 10/22/23 17:50 Oxygen Delivery Method Room Air 10/22/23 17:50 Oxygen Flow Rate 0 10/22/23 17:50 Pain Level 6 10/22/23 18:28 Lab/Test Results Lab/Test Results: Laboratory Tests Range/Units 10/22/23 10/22/23 18:11 18:22 WBC (4.4-10.8) 10^3/uL 5.90 RBC (3.93-5.22) 10^6/uL 4.77 Hgb (11.2-15.7) g/dL 14.8 Hct (36.0-46.0) % 42.8 MCV (80-95) fL 90 MCH (27.0-33.0) pg 31.0 MCHC (32.0-36.0) % 34.6 RDW (11.7-14.6) % 12.2 Plt Count (130-400) 10^3/uL 304 MPV (8.0-11.0) fL 9.2 Immature Gran % 0.3 Neutrophils % 54.2 Lymphocytes % 30.3 Monocytes % 6.9 Eosinophils % 6.8 Basophils % 1.5 Nucleated RBC % (0.0-0.3) % 0.0 Absolute Neutrophils (1.2-6.7) 10^3/uL 3.19 Absolute Lymphocytes (1.2-3.4) 10^3/uL 1.79 Absolute Monocytes (0.1-0.8) 10^3/uL 0.41 Absolute Eosinophils (0.0-0.7) 10^3/uL 0.40 Absolute Basophils (0.0-0.2) 10^3/uL 0.09 Urine Color (Yellow) Yellow Urine Clarity (Clear) Clear Urine pH (5-8) 7.5 Ur Specific [place] (1.005-1.025) 1.020 Urine Protein (Negative) mg/dL Negative Urine Ketones (Negative) mg/dL Negative Urine Blood (Negative) Negative Urine Nitrite (Negative) Negative Urine Bilirubin (Negative) Negative Urine Urobilinogen (Up to 0.2) mg/dL 0.2 Ur Leukocyte Esterase (Negative) Negative Urine Glucose (Negative) mg/dL Negative POC- Test(urine) Negative Medical Decision Making Patient presenting to the emergency department for chief complaint of abdominal/flank pain. Patient reports this started approximately 9 days ago and was seen by women's wellness as she thought she might of had a ovarian cyst that ruptured. She had ultrasound imaging done and urinalysis which they thought might have been a UTI but culture was negative and she stopped her antibiotics. Patient denies any injury or trauma, does state some associated nausea without vomiting, no fever or chills, no other vaginal or GI symptoms. Patient denies any other contributing significant past medical history beyond painful periods and ovarian cyst. Physical exam shows significant right lower quadrant tenderness to palpation exam is otherwise unremarkable. Given duration of symptoms, point tenderness, and multiple potential diagnoses for right lower quadrant pain will perform CT imaging labs and urinalysis. Reviewed patient's labs and CBC is unremarkable with no leukocytosis or shift noted. Urinalysis is negative and shows no hematuria and is otherwise negative with no signs of infection. CT imaging showed corpus luteum on the right ovary otherwise was not negative for emergent findings. Reassessed patient and she did state improvement of symptoms. Will place patient on ibuprofen to control symptoms and have her follow-up with women's wellness otherwise I do feel that patient is able to be safe for discharge given that she had recently had ultrasound imaging and now CT imaging with nonworrisome labs. After discussion of diagnosis and plan of care patient has no further needs, questions, or concerns and states clear understanding to return to the emergency department for any worsening symptoms. This documentation was generated using [employer] dictation system, please disregard any oddities of phrase or misspellings. Imaging Data Radiologic Study: Imaging: CT Scan Radiologist's impression: Exam(s) PROCEDURE INFORMATION: Exam: CT Abdomen And Pelvis With Contrast Exam date and time: 10/22/2023 6:39 PM Age: 23 years old Clinical indication: Abdominal pain; Localized; Right lower quadrant (rlq); Patient HX: Rlq pain TECHNIQUE: Imaging protocol: Computed tomography of the abdomen and pelvis with contrast. COMPARISON: CT ABDOMEN PELVIS W 08/16/2022 11:51 PM FINDINGS: Limitations: Paucity of intra-abdominal fat. Lungs: Lung bases clear. Liver: Normal appearing liver. Gallbladder and bile ducts: Gallbladder partially collapsed. No calcified gallstones seen. No biliary dilatation. Pancreas: Normal appearing pancreas. Spleen: Normal appearing spleen. Adrenal glands: Normal appearing adrenal glands. Kidneys and ureters: 2 mm nonobstructing left renal calculus. Otherwise normal-appearing kidneys. No hydronephrosis or ureterectasis. No obstructing ureteral stones. Stomach and bowel: Stomach moderately distended with ingested material. No small bowel dilatation to suggest obstruction. Normal-appearing colon. No evidence of diverticulitis or colitis. Appendix: Appendix partially obscured but normal in caliber and appearance through its visualized portion. Intraperitoneal space: Trace fluid in the deep pelvis. No free air. Vasculature: Normal caliber abdominal aorta. Lymph nodes: Scattered small mesenteric lymph nodes, nonspecific. Urinary bladder: Urinary bladder partially collapsed but grossly unremarkable, as seen. Reproductive: Anteverted uterus, partially obscured but normal in size. Ovaries largely obscured and not well evaluated but not grossly enlarged. 1.3 cm x 2.2 cm peripherally enhancing right ovarian corpus luteum. Trace adjacent fluid. Bones/joints: No acute fracture seen among the bones of the abdomen or pelvis. Soft tissues: No significant ventral or inguinal hernia. IMPRESSION: 1.3 cm x 2.2 cm peripherally enhancing right ovarian corpus luteum with trace adjacent fluid. Dictated and Authenticated by: Marcus Guzman MD. Lab Data Lab results reviewed: Yes I reviewed the patient's lab results. Quality:SDOH Health Related Social Needs: No Data to Display PFSH All Active Problems (Updated 10/22/23 @ 19:31 by Gilberto Dorantes NP) Urinary tract infection (Acute) Abdominal discomfort in right lower quadrant (Acute) Initiation of oral contraception (Acute) Nausea (Acute) History of colposcopy with cervical biopsy (Acute) 10/2022. ECC not processed. Cervical biopsy no dysplasia. Plan repeat Pap 2023 Abnormal Pap smear of cervix (Acute) 09/2022. Initial screening pap: LGSIL. Cannot exclude HGSIL. No HPV testing done. 10/2022.Colpo bx. 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) Asthma (Chronic 01/01/14) intermittent trigger- allergies and URI's Allergic rhinitis (Chronic 01/01/14) 01/03/13-Followed by [facility] Allergy- allergies to dust mites, cat, dog, other animals, tree, grass, weeds, mouse Medical History Migraine with aura RLQ abdominal pain Laceration of left index finger Constipation with ileus Respiratory syncytial virus bronchiolitis Surgical History [place] teeth extracted Family History Mother Personal history of malignant neoplasm breast cancer Mental disorder anxiety, panic disorder Other Diabetes MGM, maternal great grandparents Asthma maternal side Sister Asthma Social History Smoking/Tobacco Use Status: Current every day Tobacco Type: e-cigarettes Second Hand Exposure: No Smoking risk assessment performed?: Yes Alcohol Intake: never Substance use type: does not use Household members: family Housing: house Number of Children: 0 Education Level: college Details: [employer]. 2022. [employer]. 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 Education major. Pets and animals: Yes (2 dogs) Pets and animals: dog(s) Sexually active: Yes (Pt's BF Ambrosio. [employer] commercial driver's license driver.) Additional Social history: Pt's mother is Laura Olga, Pt of [facility]. Female Reproductive History Menstrual control method: progesterone injection History History 0 Para Hx # Term Pregnancies Multiple births Hx # Pregnancies Ectopic pregnancies AB induced Hx Number of Living Children AB spontaneous Discharge Plan Disposition Patient Disposition: Home Discharge Details Clinical Impression: Abdominal pain Primary Care Provider: Lilly Marroquin ED Provider: Gilberto Doratnes Home Meds and New Rx's Prescriptions: New ibuprofen [IBU] 600 mg tablet 600 mg PO QID PRN (Reason: pain) Qty: 20 0RF Continued clindamycin-benzoyl peroxide [Benzaclin] 1-5 % gel 1 applic topical DAILY Qty: 35 1RF Rx Instructions: apply to clean dry skin in the morning and wash off in the evening loratadine 10 mg tablet 10 mg PO DAILY PRN (Reason: allergy symptoms) Qty: 90 4RF Rx Instructions: take one tablet once a day at bedtime (DME) RiteFlo Aerochamber Spacer See Rx Instructions .Route Qty: 1 0RF Rx Instructions: As directed calcium citrate 250 mg calcium tablet See Rx Instructions PO DAILY Rx Instructions: orally daily; fluticasone propionate 50 mcg/actuation spray,suspension 1 spray intranasal DAILY PRN (Reason: sinusitis) Qty: 16 0RF Rx Instructions: administer into each nostril triamcinolone acetonide 0.1 % ointment 1 applic topical BID Qty: 30 1RF Rx Instructions: apply thin layer to eczema lesions twice a day for 7 days azelastine [Astepro] 205.5 MCG/0.137 ML spray,non-aerosol 1 spray NS BID PRNQty: 1 Rx Instructions: use for allergies albuterol sulfate [ProAir HFA] 90 mcg/actuation HFA aerosol inhaler 2 puff Inhalation Q4H Qty: 8.5 3RF Rx Instructions: take 2 puffs (5 minutes apart) 15 minutes prior to exercise and every 4 hours as needed for wheezing Discharge Instructions Instructions: Abdominal Pain (ED) Additional Instructions: At this time there are no emergent findings noted on your imaging and concerning findings on your labs. If you have any new or significant worsening symptoms feel free to return the emergency department for reassessment otherwise follow-up with women's wellness if not improving. Referrals: [facility] [Provider Group] - 5 days (as needed for reassessment)
--- NOTE | 2023-10-22 19:23 | DI.VRAD_ITS ---
PROCEDURE INFORMATION: Exam: CT Abdomen And Pelvis With Contrast Exam date and time: 10/22/2023 6:39 PM Age: 23 years old Clinical indication: Abdominal pain; Localized; Right lower quadrant (rlq); Patient HX: Rlq pain TECHNIQUE: Imaging protocol: Computed tomography of the abdomen and pelvis with contrast. COMPARISON: CT ABDOMEN PELVIS W 08/16/2022 11:51 PM FINDINGS: Limitations: Paucity of intra-abdominal fat. Lungs: Lung bases clear. Liver: Normal appearing liver. Gallbladder and bile ducts: Gallbladder partially collapsed. No calcified gallstones seen. No biliary dilatation. Pancreas: Normal appearing pancreas. Spleen: Normal appearing spleen. Adrenal glands: Normal appearing adrenal glands. Kidneys and ureters: 2 mm nonobstructing left renal calculus. Otherwise normal-appearing kidneys. No hydronephrosis or ureterectasis. No obstructing ureteral stones. Stomach and bowel: Stomach moderately distended with ingested material. No small bowel dilatation to suggest obstruction. Normal-appearing colon. No evidence of diverticulitis or colitis. Appendix: Appendix partially obscured but normal in caliber and appearance through its visualized portion. Intraperitoneal space: Trace fluid in the deep pelvis. No free air. Vasculature: Normal caliber abdominal aorta. Lymph nodes: Scattered small mesenteric lymph nodes, nonspecific. Urinary bladder: Urinary bladder partially collapsed but grossly unremarkable, as seen. Reproductive: Anteverted uterus, partially obscured but normal in size. Ovaries largely obscured and not well evaluated but not grossly enlarged. 1.3 cm x 2.2 cm peripherally enhancing right ovarian corpus luteum. Trace adjacent fluid. Bones/joints: No acute fracture seen among the bones of the abdomen or pelvis. Soft tissues: No significant ventral or inguinal hernia. IMPRESSION: 1.3 cm x 2.2 cm peripherally enhancing right ovarian corpus luteum with trace adjacent fluid. Dictated and Authenticated by: Marcus Guzman MD. Ordering:GERALD Macias MD
== END 2023-10-22 20:05 | disposition home or self-care (01) ==
PROVIDERS: Emergency Provider Nurse Practitioner Family; PCP Nurse Practitioner Family
DX: R10.9 Unspecified abdominal pain (principal); N83.11 Corpus luteum cyst of right ovary; F17.290 Nicotine dependence, other tobacco product, uncomplicated
CPT/HCPCS: 80053; 96361; 96374; 96375; 99285; 74177; 81003; 83735; 85025; 99284; J1885; J2405; J3490

== ENCOUNTER 2023-12-04 09:43 | Outpatient (REF) | payer OTHER, SELFPAY ==
--- NOTE | 2023-12-04 09:15 | PAPFT_PTH ---
PATIENT: Kendra Espinoza LOC: JUNIOR U#:[id number] AGE/SX: 23/F ROOM: RE12/04/[address]: Jennifer Sim NP : 2000 BED: DIS: 12/04/2023 SPEC #: [id number] RECD: 12/04/23 12:35 STATUS: DOMO REQ #: [id number] MARLYN: 12/04/23 09:[address]: Jennifer Sim NP DEPT: [facility] Cytology RECD BY: Sangeetha Mcgee ENTERED: 12/04/23 12:35 SP TYPE: PAPFT OTHR DR: Lilly Marroquin Tissues: 1 - CX/ENDOCX FOR PAP SMEARS Procedures: PAP THIN PREP/[facility] Screening Comments: [id number]
== END 2023-12-04 09:44 | disposition home or self-care (01) ==
LOC: LBN 09:43
PROVIDERS: PCP Nurse Practitioner Family; Visit Provider Nurse Practitioner Women's Health
DX: Z12.4 Encounter for screening for malignant neoplasm of cervix (principal); R87.612 Low grade squamous intraepithelial lesion on cytologic smear of cervix (LGSIL); Z87.410 Personal history of cervical dysplasia
CPT/HCPCS: 88142

== ENCOUNTER 2023-12-28 15:12 | Outpatient (REF) | payer OTHER, SELFPAY ==
--- NOTE | 2023-12-28 14:40 | ENDO_PTH ---
PATIENT: Kendra Espinoza LOC: N U#:[id number] AGE/SX: 23/F ROOM: RE12/28/[address]: Audrey Morris DO : 2000 BED: DIS: 12/28/2023 SPEC #: [id number] RECD: 12/28/23 17:25 STATUS: DOMO REQ #: [id number] MARLYN: 12/28/23 14:[address]: Audrey Morris DEPT: Surgical Specimen RECD BY: Sangeetha Mcgee ENTERED: 12/28/23 17:26 SP TYPE: Endo OTHR DR: Lilly Marroquin Tissues: 1 - ENDOCERVICAL BX/CURRETTE 2 - CERVICAL BIOPSY Procedures: GROSS AND MICRO LEVEL 4 Comments: [id number]
== END 2023-12-28 15:13 | disposition home or self-care (01) ==
LOC: LBN 15:12
PROVIDERS: PCP Nurse Practitioner Family; Visit Provider Obstetrics & Gynecology
DX: R87.612 Low grade squamous intraepithelial lesion on cytologic smear of cervix (LGSIL) (principal)
CPT/HCPCS: 88305

== ENCOUNTER 2024-02-08 04:29 | Outpatient (CLI) | payer OTHER, SELFPAY ==
[2024-02-08 23:05] LABS: Prolactin 8.6 ng/mL (See Note)
== END 2024-02-08 04:30 | disposition home or self-care (01) ==
PROVIDERS: PCP Nurse Practitioner Family; Visit Provider Nurse Practitioner Women's Health
DX: N64.52 Nipple discharge (principal)
CPT/HCPCS: 36415; 84146

== ENCOUNTER 2024-07-10 15:20 | Outpatient (REF) | payer OTHER, SELFPAY ==
--- NOTE | 2024-07-10 14:15 | PAPFT_PTH ---
PATIENT: Kendra Espinoza LOC: JUNIOR U#:[id number] AGE/SX: 23/F ROOM: RE07/10/[address]: Audrey Morris DO : 2000 BED: DIS: 07/10/2024 SPEC #: [id number] RECD: 07/10/24 17:49 STATUS: DOMO REQ #: [id number] MARLYN: 07/10/24 14:[address]: Audrey Morris DEPT: [facility] Cytology RECD BY: Sangeetha Mcgee ENTERED: 07/10/24 17:49 SP TYPE: PAPFT OTHR DR: Lilly Marroquin Tissues: 1 - CX/ENDOCX FOR PAP SMEARS Procedures: PAP THIN PREP/UVM Screening HPV DNA PROBE Comments: [id number] (HPV 16 & 18/45)
--- NOTE | 2024-07-10 14:15 | ENDO_PTH ---
PATIENT: Kendra Espinoza LOC: JUNIOR U#:[id number] AGE/SX: 23/F ROOM: RE07/10/[address]: Audrey Morris DO : 2000 BED: DIS: 07/10/2024 SPEC #: [id number] RECD: 07/10/24 17:39 STATUS: SOUT REQ #: [id number] MARLYN: 07/10/24 14:[address]: Audrey Morris DEPT: Surgical Specimen RECD BY: Sangeetha Mcgee ENTERED: 07/10/24 17:40 SP TYPE: Endo OTHR DR: Lilly Marroquin Tissues: 1 - ENDOCERVICAL BX/CURRETTE 2 - CERVICAL BIOPSY Procedures: GROSS AND MICRO LEVEL 4 IMMUNOPEROXIDASE STAIN Comments: [id number]
== END 2024-07-10 15:21 | disposition home or self-care (01) ==
LOC: LBN 15:20
PROVIDERS: PCP Nurse Practitioner Family; Visit Provider Obstetrics & Gynecology
DX: Z12.4 Encounter for screening for malignant neoplasm of cervix (principal); R87.613 High grade squamous intraepithelial lesion on cytologic smear of cervix (HGSIL)
CPT/HCPCS: 88142; 88305; 87624; 88361

== ENCOUNTER 2024-09-13 01:27 | Outpatient (CLI) | payer OTHER, SELFPAY ==
--- OUTSIDE RECORDS SUMMARY | 2024-09-13 01:28 | XMS_ITS | Encounter Summary ---
[place] [address] Care Team Providers Care Train Examiner Name Role Phone Lilly Marroquin APRN Primary Care Provider [phone] Reason for Referral * Allergy Testing (Routine) - Closed Specialty Diagnoses / Procedures Referred By David kennedy Referred To Contact Allergy Diagnoses Nausea Abdominal pain, unspecified abdominal location Lilly Marroquin, HEARING DOG TRAINER [address] [place] [address] [facility] Allergy [address] [place] [address] Referral ID Status Reason Start Date Expiration Date V isits Requested Visits Authorized [id number] Closed Consult, Test & Treat PCP Updated and/or Approved 05/17/2023 05/16/2024 6 6 Encounter Details Date Type Department Care Team (Latest Contact Info) Description 05/17/2023 Transcribe Orders eDH Incoming Referrals [phone] Lilly Marroquin, HEARING DOG TRAINER [address] [place], [place] [id number] Nausea; Abdominal pain, unspecified abdominal location Social History Tobacco Use Types Packs/Day Years Used Date Smoking Tobacco: Never Smokeless Tobacco: Former Alcohol Use Standard Drinks/Week Comments Not Currently 0 (1 standard drink = 0.6 oz pur e alcohol) Sex and Gender Information Value Date Recorded Sex Assigned at Not on file Gender Identity Not on file Sexual Orientation Not on file documented as of this encounter Plan of Treatment Scheduled Referrals Name Type Priority Associated Diagnoses Orde r Schedule Referral to Allergy Outpatient Referral Routine Nausea Abdominal pain, unspecified abdominal location Ordered: 05/17/2023 documented as of this encounter Visit Diagnoses Diagnosis Nausea Nausea alone Abdominal pain, unspecified abdominal location documented in this encounter Care Teams Train Examiner Relationship Specialty Start Date End Date Lilly Marroquin, HEARING DOG TRAINER [address] [place] [address] PCP - General Pediatrics 05/17/23 documented as of this encounter
--- OUTSIDE RECORDS SUMMARY | 2024-09-13 01:28 | XMS_ITS | Encounter Summary ---
Author Organization [facility] [place] [address] Care Team Providers Care Content Creation Manager Name Role Phone Beatriz Bustamante MD Primary Care Provider [phone] Reason for Visit * Reason Comments GI Problem Accompanied by mom, Laura. Encounter Details Date Type Department Care Team (Latest Contact Info) Description 02/19/2014 12:30 PM EDT Office Visit [place] [id number] Linda Willson MD Upper abdominal pain (Primary Dx); Nausea alone Discharge Disposition: Home Social History Tobacco Use Types Packs/Day Years Used Date Smoking Tobacco: Never Sex and Gender Information Value Date Recorded Sex Assigned at Not on file Gender Identity Not on file Sexual Orientation Not on file documented as of this encounter Last Filed Vital Signs Vital Sign Reading Time Taken Comments Blood Pressure 112/62 02/19/2014 12:16 PM EDT Pulse 70 02/19/2014 12:16 PM EDT Temperature - - Respiratory Rate - - Oxygen Saturation - - Inhaled Oxygen Concentration - - Weight 55.5 kg (122 lb 6.4 oz) 02/20/20 14 12:16 PM EDT Height 153.7 cm (5' 0.5) 02/19/2014 12 :16 PM EDT Body Mass Index 23.51 02/19/2014 12:16 PM EDT Body Mass Index Percentile 90.31% 02/19 12:16 PM EDT Growth Chart: [facility] (Girls, 2- 20 Years) documented in this encounter Patient Instructions * Patient Instructions* Linda Willson MD - 02/19/2014 12:38 PM EDT [place] diet 2 fruit and 3 veg a day. Serving is 1/2 cup. Yogurt or cheese daily Once she can eat normally without nausea will taper prevacid Take 1/2 capsule beads and take in soft food. Take 1/2 cap for 3 weeks, then 1/4 capsule for 3 weeks and stop. Peppermint oil or eliu 1gm before meals can help the stomach relax documented in this encounter Progress Notes * Linda Willson MD - 02/19/2014 1:15 PM EDT I saw Kendra Espinoza with her mother on February 19 at the request of Dr. Bustamante for abdominal pain and nausea. Shelley is 13 years old. She had the acute onset of upper abdominal pain and nausea in late November 2013, no other symptoms. She has a history of occasional constipation, took MiraLax, which gave her diarrhea, but did not help the pain or nausea. She tried a medication I think is Zofran without help. In early January 2014 she started Prevacid 15 mg in the morning before breakfast; she thought it helped her nausea. During the month of December she ate less and lost about five to ten pounds depending on the scales. Once she started Prevacid she began to eat more. She still eats small amounts more frequently; she is not eating what she used to eat. Her current nausea is about ten minutes after eating and lasts about 20 minutes. Her abdominal pain is a few days a week and random, lasts five to ten minutes. Shelley has never vomited, no chest pain, no dysphagia. She has never had anything like this. In the beginning, initially the nausea was constant. Review of Systems: No fevers or arthralgias. She has regained some weight. She has normal stools now. She does not feel stress is a factor. Socially: Sixth grade, missed about two weeks of school when this was bad, and now back in school. She lives with her parents and sister. Is physically active, basketball and soccer. Family History: Maternal grandmother gallstones and irritable bowel. Mother has had breast cancer. On exam Shelley appeared healthy. Her blood pressure was 112/62. Her weight was 122 pounds and 6 oz, 86th percentile, and height 45th percentile. Belly shape was normal. normal thyroid. Heart: Normal sounds. Lungs: Clear. Abdomen: No pain, mass, or organomegaly. No rashes. Mid-December 2013 normal CBC, sed rate, and CMP. A tTG was negative, no serum IgA was done. The abrupt onset of pain and significant nausea suggests this was a viral gastritis. Her nausea now seems to be decreased stomach relaxation. This can happen post viral or with anxiety. Her symptoms have improved. PPIs can decrease stomach secretions; I think that is why it his helping her. Nausea is not a common ulcer symptom and ulcers are very rare in our population. We discussed the post infectious stomach dysmotility problems can take six to nine months to completely resolve. She will continue to eat small, frequent meals. I think she does not need to regain the weight she lost, as her BMI is 90th percentile. She can try eliu or peppermint oil before meals. That can help stomach emptying. Once she can eat normally again, she will wean off the Prevacid over about six weeks. She will take one-half a capsule for three weeks and then one-fourth of a capsule for three weeks. We did do a serum IgA and I did a H. pylori IgG test. [phone] is home. documented in this encounter Miscellaneous Notes * Miscellaneous - Tapan Mosquera - 03/29/2014 5:33 AM EDT documented in this encounter Plan of Treatment Not on file documented as of this encounter Procedures Procedure Name Priority Date/Time Associated Diagnosis Comments H. PYLORI ANTIBODY, IGG Routine 02/19/2014 1:16 PM EDT Upper abdominal pain IGA Routine 02/19/2014 1:16 PM EDT Upper abdominal pain documented in this encounter Results * H. pylori Antibody, IgG (02/19/2014 1:16 PM EDT) H pylori Ab Neg Neg CERNER MILLENNIUM Blood specimen (specimen) 02/19/2014 1:16 PM EDT 02/20/2014 6:54 AM EDT Narrative Resulting Agency Comment Spec In Lab Linda Willson MD IMMUNOLOGY ORDERABLE S Performing Organization Address [facility] Co de Phone Number [facility] * IgA (02/19/2014 1:16 PM EDT) IgA 102 58 - 358 mg/dL [facility] Blood specimen (specimen) 02/19/2014 1:16 PM EDT 02/19/2014 1:22 PM EDT Narrative Resulting Agency Comment Spec In Lab Linda Willson MD CHEMISTRY ORDERABLES Performing Organization Address [facility] de Phone Number [facility] documented in this encounter Visit Diagnoses Diagnosis Upper abdominal pain- Primary Abdominal pain, other specified site Nausea alone documented in this encounter Care Teams Content Creation Manager Relationship Specialty Start Date End Date Beatriz Bustamante MD [address] [place] [address] PCP - General 01/08/14 06/14/22 documented as of this encounter
--- OUTSIDE RECORDS SUMMARY | 2024-09-13 01:28 | XMS_ITS | Encounter Summary ---
[place] [address] Care Team Providers Care Machinist/Machine Builder Name Role Phone Beatriz Bustamante MD Primary Care Provider [phone] Encounter Details Date Type Department Care Team (Late st Contact Info) Description 02/22/2014 Telephone [place] [address] Linda Willson MD Social History Tobacco Use Types Packs/Day Years Used Date Smoking Tobacco: Never Sex and Gender Information Value Date Recorded Sex Assigned at Not on file Gender Identity Not on file Sexual Orientation Not on file documented as of this encounter Miscellaneous Notes * Telephone Encounter - Linda Willson MD - 02/22/2014 9:14 AM EDT Normal serum IgA so can believe neg ttg. Neg serum h pylori antibody documented in this encounter Plan of Treatment Not on file documented as of this encounter Visit Diagnoses Not on filedocumented in this encounter Care Teams Machinist/Machine Builder Relationship Specialty Start Date End Date Beatriz Bustamante MD [address] [place] [address] PCP - General 01/08/14 06/14/22 documented as of this encounter
--- OUTSIDE RECORDS SUMMARY | 2024-09-13 01:28 | XMS_ITS | Encounter Summary ---
Author Organization [facility] Address [address] [place] [address] Care Team Providers Care Salmon Troll Fisher Name Role Phone Lilly Marroquin SAND TECHNICIAN Primary Care Provider [phone] Encounter Details Date Type Department Care Team (Late st Contact Info) Description 02/08/2024 Lab Requisition [facility] Pathology & Laboratory Medicine - [address] [address] Outr Resulting Lab, Provider Social History Tobacco Use Types Packs/Day Years Used Date Smoking Tobacco: Never Assessed Comments Unknown Sex and Gender Information Value Date Recorded Sex Assigned at Not on file Legal Sex Female 18:52 EST Gender Identity Not on file Sexual Orientation Not on file documented as of this encounter Plan of Treatment Not on file documented as of this encounter Procedures Procedure Name Priority Date/Time Associated Diagnosis Comments PROLACTIN Routine 02/08/2024 12:18 EDT documented in this encounter Results * PROLACTIN (02/08/2024 12:18 EDT) Prolactin 8.6 See Note ng/mL 02/08/2024 23:00 EDT [facility] Comment: NOTE: Female Reference Ranges: PHYSIOLOGICAL STATUS ?REFERENCE RANGE ? Postmenopausal ?1.8 - 20.3 ng/mL ?9.7 - 208.5 ng/mL Non- ?2.8 - 29.2 ng/mL Blood VENOUS BLOOD / Unknown 02/08/2024 12:18 EDT 02/08/2024 21:48 EDT us Provider Outr Resulting Lab CHEMISTRY & BLOOD GA S ORDERABLES Final Result Performing Organization Address City/State/[facility] Co de Phone Number [facility] [address] [place] [address] documented in this encounter Visit Diagnoses Not on filedocumented in this encounter Care Teams Salmon Troll Fisher Relationship Specialty Start Date End Date Lilly Marroquin NP [address] [place] [address] PCP - General Family Medicine - Primary Care 11/10/23 documented as of this encounter
--- OUTSIDE RECORDS SUMMARY | 2024-09-13 01:28 | XMS_ITS | Encounter Summary ---
Author Organization [facility] [place] [address] Care Team Providers Care [employer]ger Name Role Phone Gonzlaes Meseret Ac APRN Primary Care Provider [phone]- [phone] Reason for Visit * Auth/Cert (Routine) Specialty Diagnoses / Procedures Referred By David kennedy Referred To Contact Diagnoses Nausea Dyspepsia dyspepsia Procedures PRO UPPER GI ENDOSCOPY, DIAGNOSTIC PRO UPPER GI ENDOSCOPY, BIOPSY PRO UP GI ENDOSCOPY, REMV TUMOR, SNARE EGD, UPPER GI ENDOSCOPY (WRVU 2.09) Néstor Trejo MD [facility] [place] [address] [facility] Referral ID Status Reason Start Date Expiration Date Visits Re quested Visits Authorized [id number] 1 1 Encounter Details Date Type Department Care Team (Late st Contact Info) Description 12/09/2022 10:00 AM EDT - 12/09/2022 10:30 AM EDT [place] [address] Néstor Trejo MD [facility] [place] [address] EGD, UPPER GI ENDOSCOPY (WRVU 2.09) Social History Tobacco Use Types Packs/Day Years Used Date Smoking Tobacco: Never Smokeless Tobacco: Former Tobacco Cessation:Counseling Given: Not Answered Alcohol Use Standard Drinks/Week Comments Not Currently 0 (1 standard drink = 0.6 oz pur e alcohol) Sex and Gender Information Value Date Recorded Sex Assigned at Not on file Gender Identity Not on file Sexual Orientation Not on file documented as of this encounter Last Filed Vital Signs Vital Sign Reading Time Taken Comments Blood Pressure 133/75 12/09/2022 9:04 AM EDT Pulse 90 12/09/2022 9:04 AM EDT Temperature 37.2 ??C (99 ??F) 12/09/2022 9:04 AM EDT Respiratory Rate 19 12/09/2022 9:04 AM EDT Oxygen Saturation 100% 12/09/2022 9:04 AM EDT Inhaled Oxygen Concentration - - Weight 56.7 kg (125 lb) 12/09/2022 9:04 AM EDT Height 154.9 cm (5' 1) 12/09/2022 9:04 AM EDT Body Mass Index 23.62 12/09/2022 9:04 AM EDT documented in this encounter Discharge Instructions * Discharge Instructions* Rebekah Connor RN - 12/09/2022 11:19 AM EDT Upper GI Endoscopy: What to Expect at Home Your Recovery You will be able to go home after your doctor or nurse checks to make sure you are not having any problems. You may have to stay overnight if you had treatment during the test. You may have a sore throat fora day or two after the test. This care sheet gives you a general idea about what to expect after the test. How can you care for yourself at home? Activity Rest when you feel tired. You can do your normal activities when it feels okay to do so. Diet Follow your doctor's directions for eating. Unless your doctor has told you not to, drink plenty of fluids. This helps to replace the fluids that were lost during the prep. Do not drink alcohol. Medicines Your doctor will tell you if and when you can restart your medicines. He or she will also give you instructions about taking any new medicines. If you take blood thinners, such as warfarin (Coumadin), clopidogrel (Plavix), or aspirin, be sure to talk to your doctor. He or she will tell you if and when to start taking those medicines again. Make sure that you understand exactly what your doctor wants you to do. If polyps were removed or a biopsy was done during the test, your doctor may tell you not to take aspirin or other anti-inflammatory medicines for a few days. These include ibuprofen (Advil, Motrin) and naproxen (Aleve). If you have a sore throat the day after the procedure, use an ysht-yct-hsiscbs spray to numb your throat. Sucking on throat lozenges and gargling with warm salt water may also help relieve your symptoms. Other instructions For your safety, do not drive or operate machinery until the medicine wears off and you can think clearly. Your doctor may tell you not to drive or operate machinery until the day after your test. Do not sign legal documents or make major decisions until the medicine wears off and you can think clearly. The anesthesia can make it hard for you to fully understand what you are agreeing to. Additional Information for Sedation Patients For patients who received sedation: You may have received medications before and/or during your procedure which effects your judgement and reaction time. Do not drive, operate machinery, drink alcoholic beverages or make important decisions for 24 hours. Be careful on stairs as you may be unsteady on your feet. You may eat a regular diet as tolerated. Do not smoke if you are alone. IV site: Slight redness or tenderness is normal, you can use a warm compress if you would like. If tenderness and/or redness increase or if foul drainage occurs, please contact your Doctor. Please call [phone] before 8pm Mon-Fri with problems, questions or concerns. If you call after 8pm or on weekends, call the Hospital at [phone] and ask to speak to the Lawn Technician hydroelectric production technician and the accounting machine operator will contact that person for you. When should you call for help? Call 504 anytime you think you may need emergency care. For example, call if: You passed out (lost consciousness). You pass maroon or bloody stools. You have trouble breathing. Call your doctor now or seek immediate medical care if: You have pain that does not get better after you take pain medicine. You are sick to your stomach or cannot drink fluids. You have new or worse belly pain. You have blood in your stools. You have a fever. You cannot pass stools or gas. Watch closely for changes in your health, and be sure to contact your doctor if you have any problems. Where can you learn more? [email or web address] View your After Visit Summary and more online at [email or web address] If you would like to provide feedback about your hospital experience, please call the Office of Patient and Family Relations at . If you have received this After Visit Summary in error, please immediately return it in person to the department, or notify the - Privacy Office by calling toll free at between the hours of 8AM and 5PM to arrange for our retrieval of the documents at no cost to you. Content Version: 12.2 ?? [id number] [employer]. Care instructions adapted under license by [facility]. If you have questions about a medical condition or this instruction, always ask your healthcare professional. [employer] disclaims any warranty or liability for your use of this information. documented in this encounter Medications at Time of Discharge Medication Sig Dispensed Refills Start Date End Date lansoprazole (PREVACID) 15 mg capsule Take 15 mg by mouth daily. loratadine (CLARITIN) 10 mg tablet Take 10 mg by mouth daily. azelastine (ASTELIN) 137 mcg nasal spray 1 spray by Nasal route 2 times daily. Use in each nostril as directed fluticasone (FLONASE) 50 mcg/actuation nasal spray 1 spray daily. albuterol (PROVENTIL HFA;VENTOLIN HFA) 90 mcg/actuation inhaler Inhale 2 puffs into the lungs every 4 hours as needed. Use with spacer documented as of this encounter H&P Notes * Néstor Trejo MD - 12/09/2022 9:58 AM EDT Patient Name: Kendra Espinoza Patient Age: 22 y.o. Birthdate: 2000 Admit date: 12/09/2022 Attending Physician: Néstor Trejo MD Gastroenterology & Hepatology Pre-Procedure History and Physical Planned Procedure: EGD: Indication: dyspepsia Patient Active Problem List Diagnosis Code ??? Upper abdominal pain R10.10 ??? Nausea alone R11.0 Medications: Reviewed in EDH No Known Allergies Social History/Family History: Reviewed in EDH. No changes Exam: Patient Vitals for the past 24 hrs: Temp Pulse Resp BP SpO2 O2 Device 12/09/22 0904 37.2 ??C (99 ??F) 90 19 133/75 100 % RA GEN: NAD, AAOX3 HEENT: NC/AT dryMM, anicteric Chest: CTAB Heart: RRR, nl s1, s2 Abdomen: normal bowel sounds, soft, non tender Assessment and Plan: Proceed with EGD: ASA Grade: ASA 1 - Normal health patient Mallampati: I (soft palate, uvula, fauces, tonsillar pillars visible) Sedation plan: IV Conscious Sedation Risks and benefits of the procedure were discussed with the patient. Risks discussed including bleeding, infection, reaction to anesthesia, perforation or other intraabdominal trauma, pancreatitis (if applicable), missing a cancer (if applicable) and/or other unforseen complication. Informed Consent signed by patient (or client service representative). documented in this encounter Plan of Treatment Not on file documented as of this encounter Procedures Procedure Name Priority Date/Time Associated Diagnosis Comments SURGICAL PATHOLOGY REPORT Routine 12/09/2022 11:09 AM EDT SPECIMEN TO PATHOLOGY Routine 12/09/2022 11:09 AM EDT SPECIMEN TO PATHOLOGY Routine 12/09/2022 11:09 AM EDT Upper Gi Endoscopy, Biopsy ([id number]) 12/09/2022 10:50 AM EDT Nausea without vomiting Upper GI Endoscopy, Diagnostic ([id number]) 12/09/2022 10:50 AM EDT Nausea without vomiting UPPER GI ENDOSCOPY Routine 12/09/2022 10 :35 AM EDT documented in this encounter Results * Surgical Pathology Report (12/09/2022 11:09 AM EDT) Final Diagnosis [id number] ? Location: 4T; EA09; A The signing pathologist has (i) examined the relevant preparation(s) for the specimen(s) and (ii) rendered or confirmed the diagnosis(es). . ?Surgical Pathology DIAGNOSIS A - Duodenum biopsies r/o celiac, biopsy (Multiple): - ??Duodenal mucosa within normal limits, including preserved villous architecture. B - Gastric biopsies r/o H. pylori, biopsy (Multiple): - ??Gastric fundic mucosa within normal limits. - H. pylori organisms are not seen. Electronically signed by: ?Noble CARD PhD, Cynthia Verified: ??01/02/2023 14:07 ??Pathologist Performed at: ??-[facility] Dept. of Pathology, [place] [address] Veterinary Practitioner: Sharri Gamboa MD, FCAP, ??CLIA Certificate: [id number] SPECIMEN(S) SUBMITTED A - duodenum biopsies r/o celiac, biopsy (Multiple) B - gastric biopsies r/o H. pylori, biopsy (Multiple) CLINICAL INFORMATION 22-year-old female with history of dyspepsia SPECIMEN PROCESSING A - Labeled/Fixativ e: Duodenum biopsies rule out celiac, formalin. Quantity/Size: Four, from 0.2-0.4 cm. Tissue Description: Soft, collazo-pink tissues. Sections/Proces sing: Submitted en toto ??in 1 cassette labeled A1. B - Labeled/Fixativ e: Gastric biopsies rule out H. pylori, formalin. Quantity/Size: Three, ranging from 0.2-0.5 cm. Tissue Description: Soft, collazo-pink tissues. Sections/Proces sing: Submitted en toto ??in 1 cassette labeled B1. ??nrl 01/02/2023 2:07 PM EDT [facility] GI Biopsy 12/09/2022 11:0 9 AM EDT 12/09/2022 11:09 AM EDT GI Biopsy 12/09/2022 11:0 9 AM EDT 12/09/2022 11:09 AM EDT Néstor Trejo MD PATHOLOGY/CYTOLOG Y ORDERABLES Performing Organization Address [facility] [place] [address] [place] [address] * Specimen to Pathology (12/09/2022 11:09 AM EDT) AP Specimen 12/09/2022 11:0 9 AM EDT 12/09/2022 11:09 AM EDT Narrative [facility] - 12/09/2022 11:09 AM EDT Specimen requisition ordered. ??Separate Pathology report to follow Néstor Trejo MD PATHOLOGY/CYTOLOG Y ORDERABLES Performing Organization Address [facility] [place] [address] * Specimen to Pathology (12/09/2022 11:09 AM EDT) AP Specimen 12/09/2022 11:0 9 AM EDT 12/09/2022 11:09 AM EDT Narrative [facility] - 12/09/2022 11:09 AM EDT Specimen requisition ordered. ??Separate Pathology report to follow Néstor Trjeo MD PATHOLOGY/CYTOLOG Y ORDERABLES Performing Organization Address [facility] [place] [address] * UPPER GI ENDOSCOPY (12/09/2022 10:35 AM EDT) UPPER GI ENDOSCOPY [facility] Endoscopy Procedure Date: 12/09/2022 10:35 AM ? Patient Name: Kendra Espinoza ? Date of : 2000 ? Age: 22 ? Order #: [id number] ? Instrument Name: [id number] ? Procedure: ? Upper GI endoscopy Indications: ? Dyspepsia Patient Profile: ? This is a 22 year old female. Providers: ? Néstor Trejo MD, Murphy ? Jazmín Sanchez, Rotary Drum Dyer Referring : ?Meseret Rolon MD Requesting Provider: ?? Deborah Fisher Medicines: ? Midazolam 4 mg IV, Fentanyl 150 ? micrograms IV, Benzocaine spray, ? Diphenhydramine 25 mg IV Complications: ? No immediate complications. Procedure: ? Pre-Anesthesia Assessment: ? - Prior to the procedure, a History ? and Physical was performed, and ? patient medications and allergies ? were reviewed. The patient's ? tolerance of previous anesthesia ? was also reviewed. The risks and ? benefits of the procedure and the ? sedation options and risks were ? discussed with the patient. All ? questions were answered, and ? informed consent was obtained. ? Prior Anticoagulants: The patient ? has taken no anticoagulant or ? antiplatelet agents. ASA Grade ? Assessment: II - A patient with ? mild systemic disease. After ? reviewing the risks and benefits, ? the patient was deemed in ? satisfactory condition to undergo ? the procedure. ? The procedure, indications, ? benefits, risks and alternatives ? were explained to the patient. ? Specifically discussed were ? potential complications including, ? but not limited to, bleeding, ? perforation, infection, missing a ? cancer, and adverse medication ? reactions. The Endoscope was ? introduced through the mouth, and ? advanced to the third part of ? duodenum The upper GI endoscopy was ? somewhat difficult due to ? ineffective sedation and the ? patient's anxiety. Successful ? completion of the procedure was ? aided by increasing the dose of ? sedation medication. The patient ? tolerated the procedure. ? Findings: ? The examined esophagus was normal. ? The Z-line was regular and was found 37 cm from the ? incisors. ? The stomach was normal. Biopsies were taken with a ? cold forceps for histology. ? The examined duodenum was normal. Biopsies were taken ? with a cold forceps for histology. ? Moderate Sedation: ? Moderate (conscious) sedation was administered by the ? endoscopy nurse and supervised by the endoscopist. ? The patient's oxygen saturation, heart rate, blood ? pressure and response to care were monitored. ? I was present during the intraservice time as ? documented by the sedation RN. Impression: ?- Normal esophagus. ? - Z-line regular, 37 cm from the ? incisors. ? - Normal stomach. Biopsied. ? - Normal examined duodenum. ? Biopsied. Recommendation: ?- Await pathology results. ? Attending Participation: ? I personally performed the entire procedure. ? I was present during the intraservice time as ? documented by the sedation RN. ? Dr. Jay Trejo ___ Néstor Trejo MD 12/09/2022 11:21:56 AM Number of Addenda: 0 Note Initiated On: 12/09/2022 10:35 AM PROVATION 12/09/2022 10:3 5 AM EDT Meseret Rolon READY MIX TRUCK DRIVER GENERAL SURGICAL O RDERABLES PROVATION documented in this encounter Visit Diagnoses Diagnosis Nausea without vomiting documented in this encounter Administered Medications Inactive Administered Medications - up to 3 most recent administrations Medication Order MAR Action Action Date Dose Rate Site benzocaine (Hurricane One) 20% spray (restricted to biju-procedural use) ONCE PRN, Starting on Mon12/09/22 at 1056, Until Mon12/09/22 at 1401, Intra-Operative (Intra-Procedure) Given 12/09/2022 10:56 AM EDT 1 spray diphenhydrAMINE (Benadryl) (50 mg/mL) injection ONCE PRN, Starting on Mon12/09/22 at 1045, Until Mon12/09/22 at 1401, Intra-Operative (Intra-Procedure), Routine Given 12/09/2022 10:45 AM EDT 25 mg fentaNYL (pf) (50 mcg/mL) multi-dose injection ONCE PRN, Starting on Mon12/09/22 at 1052, Until Mon12/09/22 at 1401, Intra-Operative (Intra-Procedure), Routine Given 12/09/2022 10:57 AM EDT 50 mcg Given 12/09/2022 10:52 AM EDT 50 mcg lactated ringers infusion 100 mL/hr, Intravenous, CONTINUOUS, Starting on Mon12/09/22 at 0915, Until Mon12/09/22 at 1154, Day of Surgery (Day of Procedure) New Bag 12/09/2022 9:15 AM EDT 100 mL/hr 100 mL/hr midazolam (pf) (Versed) (1 mg/mL) multi-dose injection ONCE PRN, Starting on Mon12/09/22 at 1052, Until Mon12/09/22 at 1401, Intra-Operative (Intra-Procedure), Routine Given 12/09/2022 11:06 AM EDT 1 mg Given 12/09/2022 10:59 AM EDT 1 mg Given 12/09/2022 10:55 AM EDT 1 mg documented in this encounter Active and Recently Administered Medications Times are shown in EDT. Continuous Medication Order 12/07/2022 12/08/2022 12/09/2022 lactated ringers infusion (CANCELED) 100 mL/hr, Intravenous, CONTINUOUS, Starting on Mon12/09/22 at 0915, Until Mon12/09/22 at 1154, Day of Surgery (Day of Procedure) 0915 (New Bag - Prov ider: Leanne Reddy RN) PRN Medication Order 12/07/2022 12/08/2022 12/09/2022 benzocaine (Hurricane One) 20% spray (restricted to biju-procedural use) (CANCELED) ONCE PRN, Starting on Mon12/09/22 at 1056, Until Mon12/09/22 at 1401, Intra-Operative (Intra-Procedure) 1056 (Given - Provid er: Murphy Sanchez RN) diphenhydrAMINE (Benadryl) (50 mg/mL) injection (CANCELED) ONCE PRN, Starting on Mon12/09/22 at 1045, Until Mon12/09/22 at 1401, Intra-Operative (Intra-Procedure), Routine 1045 (Given - Provid er: Murphy Sanchez RN) fentaNYL (pf) (50 mcg/mL) multi-dose injection (CANCELED) ONCE PRN, Starting on Mon12/09/22 at 1052, Until Mon12/09/22 at 1401, Intra-Operative (Intra-Procedure), Routine 1052 (Given - Provid er: Murphy Sanchez RN)1057 (Given - Provider: Murphy Sanchez RN) midazolam (pf) (Versed) (1 mg/mL) multi-dose injection (CANCELED) ONCE PRN, Starting on Mon12/09/22 at 1052, Until Mon12/09/22 at 1401, Intra-Operative (Intra-Procedure), Routine 1052 (Given - Provid er: Murphy Sanchez RN)1055 (Given - Provider: Murphy Sanchez RN)1059 (Given - Provider: Murphy Sanchez RN)1106 (Given - Provider: Murphy Sanchez RN) documented in this encounter Care Teams [employer] Cent[employer] And Edger Relationship Specialty Start Date End Date Meseret Rolon, READY MIX TRUCK DRIVER [address] [place] [address] PCP - General Pediatrics 06/15/22 05/16/23 documented as of this encounter
--- OUTSIDE RECORDS SUMMARY | 2024-09-13 01:28 | XMS_ITS | Encounter Summary ---
[place] [address] Care Team Providers Care Supervisor Cell Efficiency Name Role Phone Meseret Rolon APRN Primary Care Provider [phone]- [phone] Encounter Details Date Type Department Care Team (Late st Contact Info) Description 09/15/2022 Telephone [place] [phone] Audrey Nguyen Social History Tobacco Use Types Packs/Day Years Used Date Smoking Tobacco: Never Sex and Gender Information Value Date Recorded Sex Assigned at Not on file Gender Identity Not on file Sexual Orientation Not on file documented as of this encounter Miscellaneous Notes * Telephone Encounter - Audrey Nguyen - 09/15/2022 12:47 PM EST Left Message. Need to reschedule from Mesfin Fletcher documented in this encounter Plan of Treatment Not on file documented as of this encounter Visit Diagnoses Not on filedocumented in this encounter Care Teams Supervisor Cell Efficiency Relationship Specialty Start Date End Date Meseret Rolon APRN [address] [place] [address] PCP - General Pediatrics 06/15/22 05/16/23 documented as of this encounter
--- OUTSIDE RECORDS SUMMARY | 2024-09-13 01:28 | XMS_ITS | Encounter Summary ---
Author Organization [facility] [place] [address] Care Team Providers Care Supervisor Putty And Caluking Name Role Phone Gonzales Meseret Yashira FERRO Primary Care Provider +1- [phone] Encounter Details Date Type Department Care Team (Late st Contact Info) Description 11/25/2022 Telephone [place] [phone] Peri Guzmán Social History Tobacco Use Types Packs/Day Years Used Date Smoking Tobacco: Never Sex and Gender Information Value Date Recorded Sex Assigned at Not on file Gender Identity Not on file Sexual Orientation Not on file documented as of this encounter Miscellaneous Notes * Telephone Encounter - Peri Guzmán - 11/25/2022 11:29 AM EDT Kendra Espinoza [id number] Diagnosis/Indication: dyspepsia Please review patient chart to confirm if previous Endoscopy procedure was performed within system. If yes, take note of Anesthesia type used. If previous procedure found, and with MAC/propofol Anesthesia support was used, schedule this procedure with Anesthesia and skip the Anesthesia portion of questions. If not performed within system, not performed at all, or performed with IVCS, ask Anesthesia questions. SCHEDULING QUESTIONS (ask all patient these questions) 1. Have you ever had a/an Upper Endoscopy before? No If yes, did you have any problems with the procedure (such as waking up during the procedure, pain or difficulties afterwards, etc.)? No What type of sedation was used: None 2. Do you take any blood thinners or have you been diagnosed with a bleeding disorder that increases your risk of bleeding with procedures? No 3. Do you have a Pacemaker or Defibrillator device? If yes, send pool message to Cardiology with patient information and date or procedure. No 4. Are you a diabetic? If yes, call PCP/managing provider to discuss use of prep and any questions or concerns related to. No 5. Do you take any iron supplements or vitamins that contain iron? No 6. Do you have a preference regarding the gender of your provider? No ANESTHESIA QUESTIONS (YES to any question, please book with Anesthesia support) 7. Have you ever been diagnosed with Pulmonary Hypertension and/or Congential Heart Disease? No 8. Have you been diagnosed with A-Fib (atrial fibrillation) that is NOT being well controled with medications? No 9. Have you ever had an allergic or adverse reaction to Fentanyl or Versed? No 10. Have you had a problem with sedation or anesthesia? (Waking up during procedure, extreme confusion after, etc.) No Dental extraction woke up a little early 11. Do you have a diagnosis of Obstructive Sleep Apnea that requires the use of a c-pap machine? No 12. Do you use an oxygen tank at home? No 13. Do you use a rescue inhaler more than twice per day? (COPD, severe asthma) No rare to use more than 2x daily -allergy season 14. Do you experience breathing problems when you lay flat for a period of time? No 15. Do you take prescription narcotic pain medications, including suboxone or methodone? No SCHEDULING CONFIRMATIONS: Please note any and all parts of your conversation with the patient here. 16. We offer all new patients an opportunity to have an appointment with one of our associate care providers to learn more about your upcoming procedure, ask questions and get answers. These appointments are offered via telehealth. Would you be interested in scheduling this appointment? (Only ask if NEW referral patient; skip this question if [facility] GI provider ordered the procedure.) No 17. Is there any other information or concerns you would like to us to share with your care team inrelation to your upcoming scheduled procedure? 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 You must have a responsible democrat who will drive you to your procedure, stay on campus for the entire duration of your procedure, and drive you home from your procedure. Who will likely be your armored car driver for the procedure? *Please Verify the height and weight, and adjust if height and/or weight have changed* Estimated body mass index is 23.51 kg/m?? as calculated from the following: Height as of 02/19/14: 153.7 cm (5' 0.5). Weight as of 02/19/14: 55.5 kg (122 lb 6.4 oz). *Delete if not needed* Height: 5'1 Weight: 120 BMI: 22.7 Age:22 y.o. documented in this encounter Plan of Treatment Not on file documented as of this encounter Visit Diagnoses Not on filedocumented in this encounter Care Teams Supervisor Putty And Caluking Relationship Specialty Start Date End Date Meseret Rolon, TOBACCO PRIMER MACHINE OPERATOR [address] [facility] [address] PCP - General Pediatrics 06/15/22 05/16/23 documented as of this encounter
--- OUTSIDE RECORDS SUMMARY | 2024-09-13 01:28 | XMS_ITS | Encounter Summary ---
[place] [address] Care Team Providers Care Ultrasound Tester Name Role Phone Lilly Marroquin APRN Primary Care Provider [phone] Reason for Visit * Reason Onset Date Comments Appointment 09/28/2023 Nuclear Medicine Encounter Details Date Type Department Care Team ([facility] Contact Info) Description 09/28/2023 [place] [id number] Aram Villar, RN Appointment (Nuclear Medicine) Social History Tobacco Use Types Packs/Day Years [...] encounter Miscellaneous Notes * Telephone Encounter - Aram Villar RN - 09/28/2023 11:49 AM EST Call to schedule Nuclear Medicine scan. No answer, voice mail message left asking for a return callto [phone] to schedule an appointment. documented in this encounter Plan of Treatment Not on file documented as of this encounter Visit Diagnoses Not on filedocumented in this encounter Care Teams Ultrasound Tester Relationship Specialty Start Date End Date Lilly Marroquin APRN [facility] [address] PCP - General Pediatrics 05/17/23 documented as of this encounter
--- OUTSIDE RECORDS SUMMARY | 2024-09-13 01:28 | XMS_ITS | Encounter Summary ---
Author Organization [facility] Address [address] [place] [address] Care Team Providers Care Cleat Layer Name Role Phone Lopez Lilly Ac SHUCKER Primary Care Provider [phone] Encounter Details Date Type Department Care Team (Late st Contact Info) Description 07/11/2024 Lab Requisition [facility]ology [facility] Laboratory Medicine - [address] [address] Audrey Morris [address] [place] [address] [place] [address] Encounter for other general examination Social History Tobacco Use Types Packs/Day Years [...] Procedure Name Priority Date/Time Associated Diagnosis Comments PAP TEST Today 07/10/2024 14:15 EDT Encounter for other general examination HPV DNA DETECTION WITH GENOTYPING, PCR Today 07/10/2024 14:15 EDT Encounter for other general examination documented in this encounter Results * (ABNORMAL) HPV DNA DETECTION WITH GENOTYPING, PCR (07/10/2024 14:15 EDT) HPV High Risk type 16, PCR Negative Negative 07/22/2024 15:44 EST [facility] HPV High Risk type 18, PCR Negative Negative 07/22/2024 15:44 [facility] HPV other High Risk types, PCR Positive(A) Negative 07/22/2024 15:44 [facility] Comment: Positive for one of the following Other High Risk HPV types: ??31,33, 35, 39, 45, 51, 52, 56, 58, 59, 66 and 68. Pap Test CERVIX UTERI STRUCTURE / Unknown 07/10/2024 14:15 EDT 07/19/2024 10:29 EST [employer] MICROBIOLOGY - GENERAL ORDERABLE S Final Result [facility] [address] [phone] * PAP TEST (07/10/2024 14:15 EDT) Specimens A. Cervix and/or Endocervix , ThinPrep Imaging System with Manual Evaluation 07/22/2024 15:44 [facility] Specimen Adequacy Satisfactory for Evaluation - transformation zone component present 07/22/2024 15:44 [facility] General Categorization Epithelial Cell Abnormality 07/22/2024 15:44 [facility] Descriptive Diagnosis Squamous Cell Abnormality - High grade squamous intraepithelial lesion (HSIL). 07/22/2024 15:44 [facility] Educational Comments [facility] recommends following the ASCCP's management guidelines which may be found at www.asccp.org 07/22/2024 15:44 [facility] Attestation By the signature below, the attending physician certifies that they have personally conducted a gross and/or microscopic examination of the described specimens and rendered or confirmed the above diagnosis. 07/22/2024 15:44 [facility] at 1544 Clinical History See below 07/22/20 15:44 [facility] Performing Lab [facility] 07/22/2024 15:44 [facility] Scanned Images 07/22/2024 15:44 [facility] HPV High Risk type 16, PCR Negative 07/22/2024 15:44 EST [facility] HPV High Risk type 18, PCR Negative 07/22/2024 15:44 [facility] HPV Other High Risk Types, PCR Positive Positive for one of the following Other High Risk HPV types: 31,33, 35, 39, 45, 51, 52, 56, 58, 59, 66 and 68. 07/22/2024 15:44 [facility] Pap Test CERVIX UTERI STRUCTURE / Unknown 07/10/2024 14:15 EDT 07/11/2024 10:17 EDT Audrey Arturo PATHOLOGY ORDERABLES Final Resul t Performing Organization Address City/State/[facility] Co de Phone Number [facility] [address] [place] [phone] documented in this encounter Visit Diagnoses Diagnosis Encounter for other general examination documented in this encounter Care Teams Cleat Layer Relationship Specialty Start Date End Date Lilly Marroquin, JUSTIN [address] [place] [address] PCP - General Family Medicine - Primary Care 11/10/23 documented as of this encounter
--- OUTSIDE RECORDS SUMMARY | 2024-09-13 01:28 | XMS_ITS | Encounter Summary ---
Author Organization [facility] [place] [address] Care Team Providers Care Table And Desk Finisher Name Role Phone Lilly Marroquin APRN Primary Care Provider [phone] Reason for Visit * Reason Onset Date Comments Appointment 09/21/2023 NM Functional Bi elysia Scan Encounter Details Date Type Department Care Team ([facility] Contact Info) Description 09/21/2023 [place] [address] Meme Trejo RN Appointment (NM Functional Bilary Scan) Social History Tobacco Use Types Packs/Day Years [...] encounter Miscellaneous Notes * Telephone Encounter - Meme Trejo RN - 09/21/2023 10:21 AM EST This nurse reached out to patient to assist in scheduling NM Functional Bilary Scan SKY [place]ama ordered on 11/22/22 I left a message along with numbers for patient to call to schedule above imaging and to contact Gastroenterology if she has questions. documented in this encounter Plan of Treatment Not on file documented as of this encounter Visit Diagnoses Not on filedocumented in this encounter Care Teams Table And Desk Finisher Relationship Specialty Start Date End Date Lilly Marroquin APRN [address] [place] [address] PCP - General Pediatrics 05/17/23 documented as of this encounter
--- OUTSIDE RECORDS SUMMARY | 2024-09-13 01:28 | XMS_ITS | Encounter Summary ---
[place] [address] Care Team Providers Care Inspector Publications Name Role Phone Meseret Rolon APRN Primary Care Provider [phone] Encounter Details Date Type Department Care Team (Late st Contact Info) Description 11/25/2022 Telephone [place] [phone] Peri Guzmán Social History Tobacco Use Types Packs/Day Years Used Date Smoking Tobacco: Never Sex and Gender Information Value Date Recorded Sex Assigned at Not on file Gender Identity Not on file Sexual Orientation Not on file documented as of this encounter Plan of Treatment Not on file documented as of this encounter Visit Diagnoses Not on filedocumented in this encounter Care Teams Inspector Publications Relationship Specialty Start Date End Date Meseret Rolon APRN [address] [place] [address] PCP - General Pediatrics 06/15/22 05/16/23 documented as of this encounter
--- OUTSIDE RECORDS SUMMARY | 2024-09-13 01:28 | XMS_ITS | Clinical Summary ---
Author Organization [facility] Address [address] [place] [address] Care Team Providers Care Tunnel Miner Name Role Phone Lilly Marroquin INSURANCE TERRITORY MANAGER Primary Care Provider [phone] Encounters Date Type Department Care Team Description 07/11/2024 Lab Requisition [facility] Pathology & Laboratory [address] [address] Audrey Morris Encounter for other general examination 07/11/2024 Lab Requisition [facility] Pathology & Laboratory [address] [address] Audrey Morris Encounter for other general examination from Last 3 Months Social History Tobacco Use Types Packs/Day Years Used Date Smoking Tobacco: Never Assessed Comments Unknown Sex and Gender Information Value Date Recorded Sex Assigned at Not on file Legal Sex Female 18:52 EST Gender Identity Not on file Sexual Orientation Not on file Plan of Treatment Health Maintenance Due Date Last Done Comments Hepatitis C Screen 2001 Hepatitis B Vaccine (1 of 3 - 19+ 3-dose series) 08/16 COVID-19 Vaccine ( season) 2024 Procedures Procedure Name Priority Date/Time Associated Diagnosis Comments PAP TEST Today 07/10/2024 14:15 EDT Encounter for other general examination SURGICAL PATHOLOGY Today 07/10/2024 14 :15 EDT Encounter for other general examination HPV DNA DETECTION WITH GENOTYPING, PCR Today 07/10/2024 14:15 EDT Encounter for other general examination from Last 3 Months Results * PAP TEST (07/10/2024 14:15 EDT) Specimens A. Cervix and/or Endocervix , ThinPrep Imaging System with Manual Evaluation 07/22/2024 15:44 [facility] Specimen Adequacy Satisfactory for Evaluation - transformation zone component present 07/22/2024 15:44 [facility] General Categorization Epithelial Cell Abnormality 07/22/2024 15:44 [facility] Descriptive Diagnosis Squamous Cell Abnormality - High grade squamous intraepithelial lesion (HSIL). 07/22/2024 15:44 [facility] Educational Comments [facility] recommends following the ASCCP's management guidelines which may be found at www.asccp.org 07/22/2024 15:44 [facility] Attestation By the signature below, the attending physician certifies that they have personally conducted a gross and/or microscopic examination of the described specimens and rendered or confirmed the above diagnosis. 07/22/2024 15:44 [facility] at 1544 Clinical History See below 07/22/20 15:44 [facility] Performing Lab [facility] 07/22/2024 15:44 [facility] Scanned Images 07/22/2024 15:44 [facility] HPV High Risk type 16, PCR Negative 07/22/2024 15:44 [facility] HPV High Risk type 18, PCR Negative 07/22/2024 15:44 [facility] HPV Other High Risk Types, PCR Positive Positive for one of the following Other High Risk HPV types: 31,33, 35, 39, 45, 51, 52, 56, 58, 59, 66 and 68. 07/22/2024 15:44 [facility] Pap Test CERVIX UTERI STRUCTURE / Unknown 07/10/2024 14:15 EDT 07/11/2024 10:17 EDT Audrey Morris PATHOLOGY ORDERABLES Final Resul t [facility] [address], [place] [phone] * SURGICAL PATHOLOGY (07/10/2024 14:15 EDT) Note to Patient The following pathology results have been interpreted by your pathologist and may be available to you before your health provider has had the opportunity to review them. Please allow time for your provider to receive these results and explore management options, if applicable. 07/16/2024 10:38 [facility] Final Diagnosis A. ENDOCERVIX, CURETTAGE: - Predominantly mucous with scant endocervical cells. B. CERVIX, 6 O'CLOCK, BIOPSY: - High-grade squamous intraepithelial lesion (YAN 2-3). - See comment. 07/16/2024 10:38 [facility] Diagnosis Comment Immunoperoxidase stains were performed on this case to further characterize the lesion. ANTIBODY(CLONE)(BL OCK):RESULT P16 (E6H4TM, [place])(B1): Diffuse, block-like staining pattern NOTE: One or more of the reagents used in immunoperoxidase testing in this case may not have been cleared or approved by the U.S. Food and Drug Administration (FDA). The FDA has determined that such clearance or approval is not necessary. These tests are used for clinical purposes. They should not be regarded as investigational or for research. These reagents' performance characteristics have been determined by [facility] and/or by the referring laboratory. The positive and negative controls worked appropriately. If immunoperoxidase staining has been performed on alcohol fixed cytology specimens, which has not been fully validated, the assays should be interpreted with caution and correlated with clinical data. This laboratory is certified under the Clinical Laboratory Improvement Amendments of 1988 (CLIA-88) as qualified to perform high complexity clinical laboratory testing. 07/16/2024 10:38 [facility] Attestation There was significant resident/fellow involvement in the diagnostic evaluation of this case. By the signature below, the attending physician certifies that they have personally conducted a gross and/or microscopic examination of the described specimens and rendered or confirmed the above diagnosis. 07/16/2024 10:38 [facility] at 1038 Clinical History YAN II 07/16/2024 10:38 [facility] Gross Description A. Received in formalin labelled with proper patient identification (initials D, A) and 1. Endocervix is an aggregate of translucent mucus (1.0 x 0.7 x 0.1 cm). Entirely submitted in A1. B. Received in formalin labelled with proper patient identification (initials D, A) and 2. Cervix bx @ 6 o'clock is a single collazo tissue (0.4 x 0.3 x 0.2 cm). Submitted intact in B1. Yareli 07/11/2024 9:31 07/16/2024 10:38 [facility] Resident/Rl w: Laura Lares MD PhD 07/16/2024 10:38 [facility] Performing Lab [facility] 10:38 [facility] Scanned Images 07/16/2024 10:38 [facility] Tissue CERVIX UTERI STRUCTURE / Unknown 07/10/2024 14:15 EDT 07/11/2024 7:55 EDT Tissue specimen (specimen) CERVIX UTERI STRUCTURE / Unknown 07/10/2024 14:15 EDT 07/11/2024 7:55 EDT [facility] PATHOLOGY ORDERABLES Final Resul t Performing Organization Address City/State/[facility] Co de Phone Number [facility] [address] [place] [phone] * (ABNORMAL) HPV DNA DETECTION WITH GENOTYPING, PCR (07/10/2024 14:15 EDT) HPV High Risk type 16, PCR Negative Negative 07/22/2024 15:44 [facility] HPV High Risk type 18, PCR Negative Negative 07/22/2024 15:44 [facility] HPV other High Risk types, PCR Positive(A) Negative 07/22/2024 15:44 [facility] Comment: Positive for one of the following Other High Risk HPV types: ??31,33, 35, 39, 45, 51, 52, 56, 58, 59, 66 and 68. Pap Test CERVIX UTERI STRUCTURE / Unknown 07/10/2024 14:15 EDT 07/19/2024 10:29 EST Audrey Morris MICROBIOLOGY - GENERAL ORDERABLE S Final Result [facility] [address] [place] [address] from Last [address] [place] [address] [place] [address] Care Teams Tunnel Miner Relationship Specialty Start Date End Date Lilly Marroquin NP [address] [place] [address] PCP - General Family Medicine - Primary Care 11/10/23
--- OUTSIDE RECORDS SUMMARY | 2024-09-13 01:28 | XMS_ITS | Encounter Summary ---
Author Organization [facility] [place] [address] Care Team Providers Care Business Objects Name Role Phone Gonzales Meseret Yashira FERRO Primary Care Provider [phone] Reason for Visit * Auth/Cert (Routine) Specialty Diagnoses / Procedures Referred By David kennedy Referred To Contact Diagnoses Nausea Dyspepsia dyspepsia Procedures PRO UPPER GI ENDOSCOPY, DIAGNOSTIC PRO UPPER GI ENDOSCOPY, BIOPSY PRO UP GI ENDOSCOPY, REMV TUMOR, SNARE EGD, UPPER GI ENDOSCOPY (WRVU 2.09) Néstor Trejo MD [facility] [place] [address] [facility] Referral ID Status Reason Start Date Expiration Date Visits Re quested Visits Authorized [id number] 1 1 Encounter Details Date Type Department Care Team (Late st Contact Info) Description 12/09/2022 8:54 AM EDT - 12/09/2022 12:01 PM EDT Hospital Encounter [place] [address] Néstor Trejo MD [facility] [address] Discharge Disposition: Home Social History Tobacco Use [...] Sign Reading Time Taken Comments Blood Pressure 104/68 12/09/2022 11:30 AM EDT Pulse 120 12/09/2022 11:05 AM EDT Temperature 37.2 ??C (99 ??F) 12/09/2022 9:04 AM EDT Respiratory Rate 16 12/09/2022 11:30 AM EDT Oxygen Saturation 97% 12/09/2022 11:30 AM EDT Inhaled Oxygen Concentration - - [...] the day after the procedure, use an [id number]-gyzvqng spray to numb your throat. Sucking on [...] occurs, please contact your Doctor. Please call [phone] before 8pm Mon-Fri with problems, questions or concerns. If you call after 8pm or on weekends, call the Hospital at [phone] and ask to speak to the Manufacturing Operator all source collection manager and the sand mill operator core sand will contact that person for you. When should you call for help? Call [phone] anytime you think you may need emergency [...] After Visit Summary and more online at [email or web address] If you would like to provide feedback about your hospital experience, please call the Office of Patient and Family Relations at . If you have received this After Visit Summary in error, please immediately return it in person to the department, or notify the [facility] Privacy Office by calling toll free at between the hours of 8AM and 5PM to arrange for our retrieval of the documents at no cost to you. Content Version: 12.2 ?? [id number] [employer]. Care instructions adapted under license by [email or web address]. If you have questions about a medical condition or this instruction, always ask your healthcare professional. [employer] disclaims any warranty or liability for your [...] complication. Informed Consent signed by patient (or marketing sales representative). documented in this encounter Plan of Treatment Not on file documented as of this encounter Procedures Procedure Name Priority Date/Time Associated Diagnosis Comments SURGICAL PATHOLOGY REPORT Routine 12/09/2022 11:09 AM EDT SPECIMEN TO PATHOLOGY Routine 12/09/2022 11:09 AM EDT SPECIMEN TO PATHOLOGY Routine 12/09/2022 11:09 AM EDT Upper Gi Endoscopy, Biopsy ([id number]) 12/09/2022 10:50 AM EDT Nausea without vomiting Upper GI Endoscopy, Diagnostic ([id number]) 12/09/2022 10:50 AM EDT Nausea without vomiting UPPER GI ENDOSCOPY Routine 12/09/2022 10 :35 AM EDT documented in this encounter Results * Surgical Pathology Report (12/09/2022 11:09 AM EDT) Final Diagnosis [id number] ? Location: 4T; EA09; A The signing [...] Cynthia Verified: ??01/02/2023 14:07 ??Pathologist Performed at: ??-[facility] Dept. of Pathology, [place] [address] Clinical Review Specialist: Sharri Gamboa MD, FCAP, ??CLIA Certificate: [id number] SPECIMEN(S) SUBMITTED A - duodenum biopsies r/o [...] labeled B1. ??nrl 01/02/2023 2:07 PM EDT [facility] GI Biopsy 12/09/2022 11:0 9 AM EDT 12/09/2022 11:09 AM EDT GI Biopsy 12/09/2022 11:0 9 AM EDT 12/09/2022 11:09 AM EDT Néstor Trejo MD PATHOLOGY/CYTOLOG Y ORDERABLES Performing Organization Address [facility] [place] [address] [facility] [place] [address] * Specimen to Pathology (12/09/2022 11:09 AM EDT) AP Specimen 12/09/2022 11:0 9 AM EDT 12/09/2022 11:09 AM EDT Narrative [facility] - 12/09/2022 11:09 AM EDT Specimen requisition ordered. ??Separate Pathology report to follow Néstor Trejo MD PATHOLOGY/CYTOLOG Y ORDERABLES Performing Organization Address [facility] [place] [address] * Specimen to Pathology (12/09/2022 11:09 AM EDT) AP Specimen 12/09/2022 11:0 9 AM EDT 12/09/2022 11:09 AM EDT Narrative [facility] - 12/09/2022 11:09 AM EDT Specimen requisition ordered. ??Separate Pathology report to follow Néstor Trejo MD PATHOLOGY/CYTOLOG Y ORDERABLES Performing Organization Address [facility] [place] [address] * UPPER GI ENDOSCOPY (12/09/2022 10:35 AM EDT) UPPER GI ENDOSCOPY [facility] Endoscopy Procedure Date: 12/09/2022 10:35 AM ? Patient Name: Kendra Espinoza ? Date of : 2000 ? Age: 22 ? Order #: [id number] ? Instrument Name: [id number] ? Procedure: ? Upper GI endoscopy Indications: ? Dyspepsia Patient Profile: ? This is a 22 year old female. Providers: ? Néstor Trejo MD, Timothy ? Jazmín Sanchez, Director Of Scout Work Referring : ?Meseret Rolon MD Requesting Provider: [...] 12/09/2022 10:3 5 AM EDT Meseret Rolon APRN GENERAL SURGICAL O RDERABLES [employer] documented in this encounter Visit Diagnoses Not on filedocumented in this encounter Administered Medications Inactive Administered Medications - up to 3 most recent administrations Medication Order MAR Action Action Date Dose Rate Site lactated ringers infusion 100 mL/hr, Intravenous, CONTINUOUS, Starting on Mon12/09/22 at 0915, Until Mon12/09/22 at 1154, Day of Surgery (Day of Procedure) New Bag 12/09/2022 9:15 AM EDT 100 mL/hr 100 mL/hr documented in this encounter Active and Recently [...] RN) documented in this encounter Care Teams Business Objects Relationship Specialty Start Date End Date Meseret Rolon, KASIE [address] [place] [address] PCP - General Pediatrics 06/15/22 05/16/23 documented as of this encounter
--- OUTSIDE RECORDS SUMMARY | 2024-09-13 01:28 | XMS_ITS | Encounter Summary ---
Author Organization [facility] Address [address] [place] [address] Care Team Providers Care Screw Cutter Name Role Phone Lilly Marroquin SUSTAINABILITY OFFICER Primary Care Provider [phone] Encounter Details Date Type Department Care Team (Late st Contact Info) Description 07/11/2024 Lab Requisition [facility] Pathology & Laboratory Medicine - [address] [address] Audrey Morris [address] [place] [address] [place] [address] Encounter for other general examination [...] Priority Date/Time Associated Diagnosis Comments SURGICAL PATHOLOGY Today 07/10/2024 14 :15 EDT Encounter for other general examination documented in this encounter Results * SURGICAL PATHOLOGY (07/10/2024 14:15 EDT) Note to Patient The following pathology results have been interpreted by your pathologist and may be available to you before your health provider has had the opportunity to review them. Please allow time for your provider to receive these results and explore management options, if applicable. 07/16/2024 10:38 EST [facility] Final Diagnosis A. ENDOCERVIX, CURETTAGE: - Predominantly mucous with scant endocervical cells. B. CERVIX, 6 O'CLOCK, BIOPSY: - High-grade squamous intraepithelial lesion (YAN 2-3). - See comment. 07/16/2024 10:38 [facility] Diagnosis Comment Immunoperoxidase stains were performed on this case to further characterize the lesion. ANTIBODY(CLONE)(BL OCK):RESULT P16 (E6H4TM, [place])(B1): Diffuse, block-like staining pattern NOTE: One or [...] performance characteristics have been determined by [facility] and/or by the referring laboratory. The positive [...] high complexity clinical laboratory testing. 07/16/2024 10:38 [facility] Attestation There was significant resident/fellow involvement in the diagnostic evaluation of this case. By the signature below, the attending physician certifies that they have personally conducted a gross and/or microscopic examination of the described specimens and rendered or confirmed the above diagnosis. 07/16/2024 10:38 [facility] at 1038 Clinical History YAN II 07/16/2024 10:38 [facility] Gross Description A. [...] 0.2 cm). Submitted intact in B1. Yareli Tamir 07/11/2024 9:31 07/16/2024 10:38 [facility] Resident/Rl w: Laura Lares MD PhD 07/16/2024 10:38 [facility] Performing Lab [facility] 10:38 [facility] Scanned Images 07/16/2024 10:38 [facility] Tissue CERVIX UTERI STRUCTURE / Unknown 07/10/2024 14:15 EDT 07/11/2024 7:55 EDT Tissue specimen (specimen) CERVIX UTERI STRUCTURE / Unknown 07/10/2024 14:15 EDT 07/11/2024 7:55 EDT Audrey Morris PATHOLOGY ORDERABLES Final Resul t [facility] [address] [place] [address] [id number] documented in this encounter Visit Diagnoses Diagnosis Encounter for other general examination documented in this encounter Care Teams Screw Cutter Relationship Specialty Start Date End Date Lilly Marroquin NP [address] [place] [address] PCP - General Family Medicine - Primary Care 11/10/23 documented as of this encounter
--- OUTSIDE RECORDS SUMMARY | 2024-09-13 01:28 | XMS_ITS | Clinical Summary ---
Author Organization [facility] [place] [address] Care Team Providers Care Raker Buffing Wheel Name Role Phone LopezTrayTorres FERRO Primary Care Provider [phone] Allergies No known active allergies Medications Medication Sig Dispensed Refills Start Date End Date Status lansoprazole (PREVACID) 15 mg capsule Take 15 mg by mouth daily. Active loratadine (CLARITIN) 10 mg tablet Take 10 mg by mouth daily. Active azelastine (ASTELIN) 137 mcg nasal spray 1 spray by Nasal route 2 times daily. Use in each nostril as directed Active fluticasone (FLONASE) 50 mcg/actuation nasal spray 1 spray daily. Active albuterol (PROVENTIL HFA;VENTOLIN HFA) 90 mcg/actuation inhaler Inhale 2 puffs into the lungs every 4 hours as needed. Use with spacer Active Active Problems Problem Noted Date Diagnosed Date Upper abdominal pain 02/19/2014 Nausea alone 02/19/2014 Social History Tobacco Use Types Packs/Day Years Used Date Smoking Tobacco: Never Smokeless Tobacco: Former Tobacco Cessation:Counseling Given: Not Answered Alcohol Use Standard Drinks/Week Comments Not Currently 0 (1 standard drink = 0.6 oz pur e alcohol) Sex and Gender Information Value Date Recorded Sex Assigned at Not on file Gender Identity Not on file Sexual Orientation Not on file Last Filed Vital Signs Vital Sign Reading [...] Mass Index 23.62 12/09/2022 9:04 AM EDT Plan of Treatment Health Maintenance Due Date Last Done Comments Chlamydia Screening 2016 HPV vaccine (1 - 3-dose series) 2016 HIV screen 2019 Hepatitis C Screening 2019 Hepatitis B vaccine (0-59 yrs) (1) 2020 Tetanus/Diphtheria/Pertussis Vaccines (1 - Tdap) 08/16 PAP Smear 2022 Covid-19 Vaccine (1 - 2023- season) 2024 Influenza (Flu) vaccine (1 o f 1 - Influenza standard series) 05/12/2024 Care Teams Raker Buffing Wheel Relationship Specialty Start Date End Date Lilly Marroquin APRN [address] [place], [place] [address] PCP - General Pediatrics 05/17/23
--- OUTSIDE RECORDS SUMMARY | 2024-09-13 01:28 | XMS_ITS | Encounter Summary ---
Author Organization [facility] [place] [address] Care Team Providers Care Paint Booth Operator Name Role Phone Meseret Rolon APRN Primary Care Provider [phone] Encounter Details Date Type Department Care Team (Late st Contact Info) Description 10/07/2022 [place] [id number] Lian Schneider Social History Tobacco Use Types Packs/Day Years Used Date Smoking Tobacco: Never Sex and Gender Information Value Date Recorded Sex Assigned at Not on file Gender Identity Not on file Sexual Orientation Not on file documented as of this encounter Miscellaneous Notes * Telephone Encounter - Lian Schneider - 10/07/2022 10:51 AM EST Rescheduled for 11/22 * Telephone Encounter - Lian Schneider - 10/07/2022 9:13 AM EST Left detailed message informing patient that her appointment with SKY Fisher on 10/31 needs to be rescheduled (bump). documented in this encounter Plan of Treatment Not on file documented as of this encounter Visit Diagnoses Not on filedocumented in this encounter Care Teams Paint Booth Operator Relationship Specialty Start Date End Date Meseret Rolon APRN [address] [place], [place] [address] [address] PCP - General Pediatrics 06/15/22 05/16/23 documented as of this encounter
--- OUTSIDE RECORDS SUMMARY | 2024-09-13 01:28 | XMS_ITS | Encounter Summary ---
Author [place] [address] Care Team Providers Care Oracle Data Warehouse Developer Name Role Phone Meseret oRlon APRN Primary Care Provider [phone] Reason for Referral * Consultation (Routine) - Closed Specialty Diagnoses / Procedures Referred By David kennedy Referred To Contact Gastroenterology Diagnoses Abdominal pain, unspecified abdominal location STEPHANIE bump abd pain Lilly Marroquin, CELLULAR BIOLOGIST [address] [place] [address] [facility] [address] [place] [address] Referral ID Status Reason Start Date Expiration Date V isits Requested Visits Authorized [id number] Closed Consult, Test & Treat PCP Updated and/or Approved 06/15/2022 06/15/2023 6 6 Encounter Details Date Type Department Care Team (Latest Contact Info) Description 06/15/2022 Transcribe Orders eDH Incoming Referrals [phone] Lilly Marroquin, CELLULAR BIOLOGIST [address] [place], [place] [id number] Abdominal pain, unspecified abdominal location Social History Tobacco Use Types Packs/Day Years Used Date Smoking Tobacco: Never Sex and Gender Information Value Date Recorded Sex Assigned at Not on file Gender Identity Not on file Sexual Orientation Not on file documented as of this encounter Plan of Treatment Scheduled Referrals Name Type Priority Associated Diagnoses Order Schedule Referral to Gastroenterology Outpatient Referral Routine Abdominal Pain, Unspecified Abdominal Location Ordered: 06/15/2022 documented as of this encounter Visit Diagnoses Diagnosis Abdominal pain, unspecified abdominal location documented in this encounter Care Teams Oracle Data Warehouse Developer Relationship Specialty Start Date End Date Meseret Rolon, CELLULAR BIOLOGIST [address] [place] [address] PCP - General Pediatrics 06/15/22 05/16/23 documented as of this encounter
--- OUTSIDE RECORDS SUMMARY | 2024-09-13 01:28 | XMS_ITS | Encounter Summary ---
Author Organization [facility] [place] [address] Care Team Providers Care Rn Urgent Care Name Role Phone Meseret Rolon APRN Primary Care Provider [phone] Encounter Details Date Type Department Care Team (Late st Contact Info) Description 11/25/2022 Orders [place] [address] Deborah Fisher PA [facility] [place] [address] Nausea without vomiting Social History Tobacco Use Types Packs/Day Years Used Date Smoking Tobacco: Never Sex and Gender Information Value Date Recorded Sex Assigned at Not on file Gender Identity Not on file Sexual Orientation Not on file documented as of this encounter Plan of Treatment Scheduled Orders Name Type Priority Associated Diagnoses Orde r Schedule ENDOSCOPY CASE REQUEST: EGD, UPPER GI ENDOSCOPY (WRVU 2.09) Procedures Routine Nausea without vomiting Ordered: 11/25/2022 documented as of this encounter Visit Diagnoses Diagnosis Nausea without vomiting documented in this encounter Care Teams Rn Urgent Care Relationship Specialty Start Date End Date Meseret Rolon APRN [address] [place] [address] PCP - General Pediatrics 06/15/22 05/16/23 documented as of this encounter
--- OUTSIDE RECORDS SUMMARY | 2024-09-13 01:28 | XMS_ITS | Encounter Summary ---
Author Organization [facility] [place] [address] Care Team Providers Care Outdoor Guide Name Role Phone Meseret Rolon APRN Primary Care Provider [phone] Encounter Details Date Type Department Care Team (Late st Contact Info) Description 11/24/2022 Telephone [place] [address] Isaiah Zimmer Social History Tobacco Use Types Packs/Day Years Used Date Smoking Tobacco: Never Sex and Gender Information Value Date Recorded Sex Assigned at Not on file Gender Identity Not on file Sexual Orientation Not on file documented as of this encounter Miscellaneous Notes * Telephone Encounter - Isaiah Zimmer - 11/24/2022 10:03 AM EDT [facility] CLINICAL SAFETY CHECKLIST 11/24/2022 Isaiah Lopezt [address] [facility] [address] [id number] : 2000 REFERRING PROVIDER: Phillip PRIMARY CARE PROVIDER: Meseret Rolon APRN PRIMARY SYMPTOM (PROCEDURE INDICATION): heartburn SAFETY QUESTIONS PACEMAKER/DEFIBRILLATOR? no NEUROSTIMULATOR? no ESOPHAGEAL VARICES? no SENSITIVITY OR ALLERGY TO NICKEL? YES BLOOD THINNERS SUCH PLAVIX, COUMADIN, IF YES TO ANY OF THE ABOVE PRE-PROCEDURE QUESTIONS, please inform the patient that the test cannot be scheduled due to safety concerns about testing, and the patient should speak with their provider to consider alternative testing. The foot cutter should also contact the provider's office directly tonotify them that we are unable to schedule due to a contraindication to testing. Then, delete the remainder of this checklist and close out the referral. documented in this encounter Plan of Treatment Not on file documented as of this encounter Visit Diagnoses Not on filedocumented in this encounter Care Teams Outdoor Guide Relationship Specialty Start Date End Date Meseret Rolon, OBIEE CONSULTANT [address] [place] [address] PCP - General Pediatrics 06/15/22 05/16/23 documented as of this encounter
--- OUTSIDE RECORDS SUMMARY | 2024-09-13 01:28 | XMS_ITS | Encounter Summary ---
Author Organization [facility] [place] [address] Care Team Providers Care Concrete Placement Equipment Operator Name Role Phone GonzalesMeseret Yashira FORESTRY AIDE Primary Care Provider [phone]- [phone] Reason for Visit * Consultation (Routine) - Closed Specialty Diagnoses / Procedures Referred By David kennedy Referred To Contact Gastroenterology Diagnoses Abdominal pain, unspecified abdominal location STEPHANIE bump abd pain Lilly Marroquin, FORESTRY AIDE [address] [place] [address] [place] [address] [facility] [address] [place] [address] Referral ID Status Reason Start Date Expiration Date V isits Requested Visits Authorized [id number] Closed Consult, Test & Treat PCP Updated and/or Approved 06/15/2022 06/15/2023 6 6 Encounter Details Date Type Department Care Team (Latest Contact Info) Description 11/22/2022 1:00 PM EDT TH Visit (TeleHealth) [place] [address] Deborah Fisher PA [facility] [place] [address] Nausea without vomiting Social History Tobacco Use Types Packs/Day Years Used Date Smoking Tobacco: Never Sex and Gender Information Value Date Recorded Sex Assigned at Not on file Gender Identity Not on file Sexual Orientation Not on file documented as of this encounter Progress Notes * Deborah Fisher PA - 11/22/2022 1:00 PM EDT GASTROENTEROLOGY TELEHEALTH PROGRAM - NEW PATIENT VISIT Chief Complaint: Kendra Espinoza is a 22 y.o. patient referred for consultation by Dr. Marroquin for abdominal pain History of Present Illness: Symptoms began acutely in May Epigastric abdominal pain Occurring acutely after eating chicken sandwich She was seen in urgent care for nausea PCP ordered labs to include lipase, CMP and abdominal xray She had an abdominal ultrasound which pt reports as negative She was tried on omeprazole. She was then switched to Nexium Her dyspepsia improvement but she was left with nausea In August she had RLQ pain and back pain. She had CT scan which she reports as negative She saw her PCP who suggested she may ovarian cysts. She was found to have an ovarian cyst which has resolved. This caused heavy menstrual bleeding. Her pain resolved but has returned to her lower back No change in her bowel pattern - not associated with pain She had an abnormal pap recently She had a colposcopy and worries symptoms are related to HPV Currently: She continues to have nausea Some early satiety She is taking her Nexium- she feels she is having some side effects She lost 20lbs since onset of symptoms- she is eating less and has changed her diet She does not think its GERD. Medications: ??? lansoprazole (PREVACID) 15 mg capsule ??? loratadine (CLARITIN) 10 mg tablet ??? azelastine (ASTELIN) 137 mcg nasal spray ??? fluticasone (FLONASE) 50 mcg/actuation nasal spray ??? albuterol (PROVENTIL HFA;VENTOLIN HFA) 90 mcg/actuation inhaler Allergies: has No Known Allergies. Past Medical History: Anxiety Depression Asthma Allergic rhitinis Past Surgical History: [place] teeth Family History: denies family history of colon cancer, IBD, or celiac disease in mother father or other family members Mother- appendix tumor Social History: Tobacco- none EtOH- once per month. None since symptoms Drugs- none Assessment/Plan: 22-year-old female seen in consultation for abdominal pain. Her symptoms began acutely with what she describes as increase in acid. She was on omeprazole and currently Nexium. She continues to have some back pain now and is unsure whether her symptoms are related to a GI cause or a non-GI/gynecological cause. She was recently told she had an ovarian cyst which has resolved. Interestingly, her pain initially did resolve when her cyst resolved but has returned. She also has some residual nausea and a 20 pound weight loss. We discussed possible GI causes of nausea including dyspepsia, biliary disease and dysmotility. We discussed proceeding with the following work-up 1. EGD with pH Alonso off PPI therapy to evaluate for dyspepsia 2. Gastric emptying scan to evaluate for dysmotility 3. CCK HIDA scan to evaluate for biliary dyskinesia in the setting of a reportedly normal ultrasound. I would encourage her to continue working with her PCP and SAMPLE PULLER to further investigate non-GI causes of symptoms. I discussed all the above tests in detail with Kendra and she is comfortable proceeding. She understands we will arrange a follow-up visit when her work-up has been completed but she will reach out sooner with additional questions or concerns In the meantime, we discussed a trial of IBgard or FDgard. [facility] [place] [address] documented in this encounter Plan of Treatment Not on file documented as of this encounter Visit Diagnoses Diagnosis Nausea without vomiting documented in this encounter Care Teams Concrete Placement Equipment Operator Relationship Specialty Start Date End Date Meseret Rolon APRN [address] [place] [address] PCP - General Pediatrics 06/15/22 05/16/23 documented as of this encounter
--- OUTSIDE RECORDS SUMMARY | 2024-09-13 01:28 | XMS_ITS | Referral Summary ---
Author Organization [facility] Address [address] [place] [address] Care Team Providers Care Machine Brusher Name Role Phone Lopez Lilly Ac MEAT GRADER Primary Care Provider [phone] Encounters Date Type Department Care Team Description 07/11/2024 Lab Requisition [facility] Pathology & Laboratory [address] [address] Audrey Morris Encounter for other general examination 07/11/2024 Lab Requisition [facility] Pathology & Laboratory [facility] [address] [place] [address] Audrey Morris Encounter for other general examination from Last 3 Months Social History Tobacco Use Types Packs/Day Years Used Date Smoking Tobacco: Never Assessed Comments Unknown Sex and Gender Information Value Date Recorded Sex Assigned at Not on file Legal Sex Female 18:52 EST Gender Identity Not on file Sexual Orientation Not on file Plan of Treatment Not on file Procedures Procedure Name Priority Date/Time Associated Diagnosis [...] Imaging System with Manual Evaluation 07/22/2024 15:44 [facility] Specimen Adequacy Satisfactory for Evaluation - transformation zone component present 07/22/2024 15:44 [facility] General Categorization Epithelial Cell Abnormality 07/22/2024 15:44 [facility] Descriptive Diagnosis Squamous Cell Abnormality - High grade squamous intraepithelial lesion (HSIL). 07/22/2024 15:44 [facility] Educational Comments [facility] recommends following the ASCCP's management guidelines which may be found at www.asccp.org 07/22/2024 15:44 [facility] Attestation By the signature below, the attending physician certifies that they have personally conducted a gross and/or microscopic examination of the described specimens and rendered or confirmed the above diagnosis. 07/22/2024 15:44 [facility] at 1544 Clinical History See below 07/22/20 15:44 [facility] Performing Lab [facility] 07/22/2024 15:44 [facility] Scanned Images 07/22/2024 15:44 [facility] HPV High Risk type 16, PCR Negative 07/22/2024 15:44 [facility] HPV High Risk type 18, PCR Negative 07/22/2024 15:44 [facility] HPV Other High Risk Types, PCR Positive Positive for one of the following Other High Risk HPV types: 31,33, 35, 39, 45, 51, 52, 56, 58, 59, 66 and 68. 07/22/2024 15:44 [facility] Pap Test CERVIX UTERI STRUCTURE / Unknown 07/10/2024 14:15 EDT 07/11/2024 10:17 EDT Audrey Morris PATHOLOGY ORDERABLES Final Resul t [facility] [address] [place], [place] [id number] * SURGICAL PATHOLOGY (07/10/2024 14:15 EDT) Note to Patient The following pathology results have been interpreted by your pathologist and may be available to you before your health provider has had the opportunity to review them. Please allow time for your provider to receive these results and explore management options, if applicable. 07/16/2024 10:38 [facility] Final Diagnosis A. ENDOCERVIX, CURETTAGE: - Predominantly mucous with scant endocervical cells. B. CERVIX, 6 O'CLOCK, BIOPSY: - High-grade squamous intraepithelial lesion (YAN 2-3). - See comment. 07/16/2024 10:38 [facility] Diagnosis Comment Immunoperoxidase stains were performed on this case to further characterize the lesion. ANTIBODY(CLONE)(BL OCK):RESULT P16 (E6H4TM, [place])(B1): Diffuse, block-like staining pattern NOTE: One or [...] performance characteristics have been determined by [facility] and/or by the referring laboratory. The [...] high complexity clinical laboratory testing. 07/16/2024 10:38 [facility] Attestation There was significant resident/fellow involvement in the diagnostic evaluation of this case. By the signature below, the attending physician certifies that they have personally conducted a gross and/or microscopic examination of the described specimens and rendered or confirmed the above diagnosis. 07/16/2024 10:38 [facility] at 1038 Clinical History YAN II 07/16/2024 10:38 [facility] Gross Description A. Received in [...] B1. Yareli Tamir 07/11/2024 9:31 07/16/2024 10:38 [facility] Resident/Rl w: Laura Lares MD PhD 07/16/2024 10:38 [facility] Performing Lab [facility] 10:38 [facility] Scanned Images 07/16/2024 10:38 [facility] Tissue CERVIX UTERI STRUCTURE / Unknown 07/10/2024 14:15 EDT 07/11/2024 7:55 EDT Tissue specimen (specimen) CERVIX UTERI STRUCTURE / Unknown 07/10/2024 14:15 EDT 07/11/2024 7:55 EDT Audrey Arturo PATHOLOGY ORDERABLES Final Resul t [facility] [address] [place] [id number] * (ABNORMAL) HPV DNA DETECTION WITH GENOTYPING, PCR (07/10/2024 14:15 EDT) HPV High Risk type 16, PCR Negative Negative 07/22/2024 15:44 [facility] HPV High Risk type 18, PCR Negative Negative 07/22/2024 15:44 [facility] HPV other High Risk types, PCR Positive(A) Negative 07/22/2024 15:44 [facility] Comment: Positive for one of the following Other High Risk HPV types: ??31,33, 35, 39, 45, 51, 52, 56, 58, 59, 66 and 68. Pap Test CERVIX UTERI STRUCTURE / Unknown 07/10/2024 14:15 EDT 07/19/2024 10:29 EST Audrey Morris MICROBIOLOGY - GENERAL ORDERABLE S Final Result [facility] [address] [place], [place] [id number] from Last 3 Months Insurance [id number] [place] [address] Care Teams Machine Brusher Relationship Specialty Start Date End Date Lilly Marroquin MEAT GRADER [address] [place] [address] PCP - General Family Medicine - Primary Care 11/10/23
--- OUTSIDE RECORDS SUMMARY | 2024-09-13 01:29 | XMS_ITS | Encounter Summary ---
Author Organization [facility] Address [address] [place] [address] Care Team Providers Care Svp Digital Sales Name Role Phone Meseret Rolon JUDGE CLERK Primary Care Provider [phone] Lilly Marroquin JUDGE CLERK Primary Care Provider [phone] Encounter Details Date Type Department Care Team (Late st Contact Info) Description 10/15/2022 Lab Requisition [facility] Pathology & Laboratory Medicine - [address] [address] Rosey Deutsch MD [facility] [place], [place] [address] Encounter for other general examination Social History [...] Date/Time Associated Diagnosis Comments SURGICAL PATHOLOGY Today 10/14/2022 14 :00 EST Encounter for other general examination documented in this encounter Results * SURGICAL PATHOLOGY (10/14/2022 14:00 EST) Addendum Comment The previous Pap test ([id number]) has been reviewed and the presence of atypical cells is confirmed. Similar abnormal cells to those seen on the Pap test are not identified in the current case. 10/19/2022 14:52 [facility] Addendum electronically signed by Tono Rodrigez MD on 10/19/2022 at 1452 Note to Patient The following pathology results have been interpreted by your pathologist and may be available to you before your health provider has had the opportunity to review them. Please allow time for your provider to receive these results and explore management options, if applicable. 10/19/2022 14:52 [facility] Final Diagnosis A. ENDOCERVIX, CURETTAGE: - Tissue did not survive processing. Credit issued. B. CERVIX, 1 O'CLOCK, BIOPSY: - Squamous metaplasia with reactive epithelial changes. - See Comment. 10/19/2022 14:52 [facility] Diagnosis Comment Deeper sections have been examined. Immunoperoxidase stains were performed on this case to further characterize the epithelial changes ANTIBODY(CLONE)(BL OCK):RESULT P16 (E6H4TM, [place]) (Block B1): Negative (supports reactive change). NOTE: One or more of the reagents [...] performance characteristics have been determined by The and/or by the referring laboratory. The positive and negative controls worked appropriately. If immunoperoxidase staining has been performed on alcohol fixed cytology specimens, which has not been fully validated, the assays should be interpreted with caution and correlated with clinical data. This laboratory is certified under the Clinical Laboratory Improvement Amendments of 1988 (CLIA-88) as qualified to perform high complexity clinical laboratory testing. 10/19/2022 14:52 [facility] Attestation By the signature below, the attending physician certifies that they have 1) personally conducted a gross and/or microscopic examination of the described specimen(s), and/or personally interpreted the results of laboratory testing of the described specimen(s), and 2) personally rendered or confirmed the above diagnosis. 10/19/2022 14:52 [facility] at 1450 Clinical History ASCUS, cannot R/O HGSIL 10/19/2022 14:52 EST [facility] Gross Description A. Received in formalin labelled with proper patient identification (initials D, A) and endocervix curettage is an aggregate of collazo translucent mucinous material that measures 0.1 x 0.1 x less than 0.1 cm. The specimen is submitted entirely in A1. Please note the specimen may not survive processing. B. Received in formalin labelled with proper patient identification (initials D, A) and bx 1 o'clock is a single collazo tissue fragment (0.4 x 0.2 x 0.2 cm). Submitted intact in B1. Lisa Roser 10/17/2022 5:16 10/19/2022 14:52 EST [facility] Performing Lab [facility] 14:52 EST [facility] Scanned Images 10/19/2022 14:52 [facility] Tissue ENTIRE WALL OF CERVIX / Unknown 10/14/2022 14:00 EST 10/15/2022 6:46 EST Tissue specimen (specimen) CERVIX UTERI STRUCTURE / Unknown 10/14/2022 14:00 EST 10/15/2022 6:47 EST us Rosey Deutsch MD PATHOLOGY ORDERABLES Edited Re sult - Final [facility] [address] [place] [address] documented in this encounter Visit Diagnoses Diagnosis Encounter for other general examination documented in this encounter Care Teams Svp Digital Sales Relationship Specialty Start Date End Date Meseret Rolon, JUDGE CLERK [address] [place], [place] [id number] PCP - General 09/11/22 11/09/23 Lilly Marroquin NP [address] [place], [place] [id number] PCP - General Family Medicine - Primary Care 11/10/23 documented as of this encounter
--- OUTSIDE RECORDS SUMMARY | 2024-09-13 01:29 | XMS_ITS | Encounter Summary ---
Author Organization [facility] Address [address] [place] [address] Care Team Providers Care Combatant Swimmer Name Role Phone Aram Alvarez MD Primary Care Provider Unavailabl e Reason for Visit * Reason Onset Date Comments Appointment Related 02/14/2011 PATIENT HAS MOLLUSCUM CONTAGIOSUM. PLEASE CALL. Encounter Details Date Type Department Care Team ([facility] Contact Info) Description 02/14/2011 Telephone [facility] Dermatology [address] [address] More Pascual MD [address] [place] [address] Appointment Related (PATIENT HAS MOLLUSCUM CONTAGIOSUM. PLEASE CALL. ) Social History Tobacco Use Types Packs/Day Years Used Date Smoking Tobacco: Never Assessed Comments Unknown Sex and Gender Information Value Date Recorded Sex Assigned at Not on file Legal Sex Female 18:52 EST Gender Identity Not on file Sexual Orientation Not on file documented as of this encounter Miscellaneous Notes * Telephone Encounter - Argenis Oliver RN - 02/14/2011 1322 EDT Left a message for Elvia in Dr. Alvarez's office. Argenis Oliver RN 02/14/2011 13:22 Spoke with Elvia. Patient's mother is concerned that the molluscum is spreading. Tried imiquimod andsilvadene, triamcinolone, and desquamex gel. None of this has helped. The mollescum has spread fromher neck & back to her legs. Patient scheduled 07/06/2011 WED 3:30P PEN NPV RUFUS SWANSON,CHONG. Argenis Oliver RN 02/18/2011 12:01 documented in this encounter Plan of Treatment Not on file documented as of this encounter Visit Diagnoses Not on filedocumented in this encounter Care Teams Combatant Swimmer Relationship Specialty Start Date End Date Aram Alvarez MD PCP - General 02/14/11 09/10/22 documented as of this encounter
--- OUTSIDE RECORDS SUMMARY | 2024-09-13 01:29 | XMS_ITS | Encounter Summary ---
Author Organization [facility] Address [address] [place] [address] Care Team Providers Care Plate Preparer Name Role Phone Meseret Rolon RF TEST TECHNICIAN Primary Care Provider [phone] Lilly Marroquin RF TEST TECHNICIAN Primary Care Provider [phone] Encounter Details Date Type Department Care Team (Late st Contact Info) Description 09/21/2022 Lab Requisition [facility] Pathology & Laboratory Medicine - [address] [address] Jennifer Sim, PLANTING MATERIAL UNLOADER [address] [place] [address] Encounter for other general examination [...] Date/Time Associated Diagnosis Comments PAP TEST Today 09/21/2022 9:05 EST Encounter for other general examination CHLAMYDIA/N. GONORRHOEAE AMPLIFIED NUCLEIC ACID, THINPREP Today 09/21/2022 9:05 EST documented in this encounter Results * PAP TEST (09/21/2022 9:05 EST) Specimens A. Cervix and/or Endocervix , ThinPrep Imaging System with Manual Evaluation 09/30/2022 10:13 [facility] Specimen Adequacy Satisfactory for Evaluation - transformation zone component present 09/30/2022 10:13 [facility] General Categorization Epithelial Cell Abnormality 09/30/2022 10:13 [facility] Descriptive Diagnosis Squamous Cell Abnormality - Low grade squamous intraepithelial lesion, cannot exclude high grade squamous intraepithelial lesion (LSIL-H). 09/30/2022 10:13 [facility] Educational Comments There is no ASCCP recommendation specific to the diagnosis above. This diagnosis indicates a greater likelihood of the cervix harboring HSIL compared to a diagnosis of LSIL alone, 64% vs. 14% in our experience. Initial colposcopic evaluation is advised. Should HSIL not be confirmed on colposcopic evaluation and/or biopsy, close follow-up with Pap test and/or repeat colposcopy is advised. In some situations there may be clinical or colposcopic reasons to perform a diagnostic cone biopsy/LEEP. 09/30/2022 10:13 [facility] Attestation By the signature below, the attending physician certifies that they have personally conducted a gross and/or microscopic examination of the described specimens and rendered or confirmed the above diagnosis. 09/30/2022 10:13 [facility] at 1013 Clinical History See below 09/30/19 10:13 [facility] Performing Lab [facility] 09/30/2022 10:13 [facility] Scanned Images 09/30/2022 10:13 [facility] Papanicolaou smear specimen (specimen) CERVIX UTERI STRUCTURE / Unknown 09/21/2022 9:05 EST 09/22/2022 15:31 EST us Jennifer Sim APRN PATHOLOGY ORDERABLES Noemí l Result [facility] [address] [place] [address] * CHLAMYDIA/N. GONORRHOEAE AMPLIFIED RNA, THINPREP (09/21/2022 9:05 EST) Neisseria gonorrhoeae Result Negative Negative 09/22/2022 14:52 EST [facility] Chlamydia trachomatis Result Negative Negative 09/22/2022 14:52 EST [facility] Papanicolaou smear specimen (specimen) CERVIX UTERI STRUCTURE / Unknown 09/21/2022 9:05 EST 09/22/2022 8:37 EST us Jennifer Sim PLANTING MATERIAL UNLOADER MICROBIOLOGY - GENERAL OR DERABLES Final Result [facility] [address] [place] [address] documented in this encounter Visit Diagnoses Diagnosis Encounter for other general examination documented in this encounter Care Teams Plate Preparer Relationship Specialty Start Date End Date Meseret Rolon, RF TEST TECHNICIAN [address] [place] [address] PCP - General 09/11/22 11/09/23 Lilly Marroquin NP [address] [place] [address] PCP - General Family Medicine - Primary Care 11/10/23 documented as of this encounter
--- OUTSIDE RECORDS SUMMARY | 2024-09-13 01:29 | XMS_ITS | Encounter Summary ---
Author Organization [facility] Address [address] [place] [address] Care Team Providers Care Systems Engineering Manager Name Role Phone Lopez Lilly Ac INSTRUMENT TECHNICIAN APPRENTICE Primary Care Provider [phone] Encounter Details Date Type Department Care Team (Late st Contact Info) Description 12/06/2023 Lab Requisition [facility] Pathology & Laboratory Medicine - [address] [address] Jennifer Sim, CRESTER [address] [place] [id number] Encounter for other general examination Social History [...] Date/Time Associated Diagnosis Comments PAP TEST Today 12/04/2023 9:15 EDT Encounter for other general examination documented in this encounter Results * PAP TEST (12/04/2023 9:15 EDT) Specimens A. Cervix and/or Endocervix , ThinPrep Imaging System with Manual Evaluation 12/08/2023 16:57 EDT [facility] Specimen Adequacy Satisfactory for Evaluation - transformation zone component present 12/08/2023 16:57 EDT [facility] General Categorization Epithelial Cell Abnormality 12/08/2023 16:57 EDT [facility] Descriptive Diagnosis Squamous Cell Abnormality - Low grade squamous intraepithelial lesion (LSIL). 12/08/2023 16:57 EDT [facility] Educational Comments [facility] recommends following the ASCCP's management guidelines which may be found at www.asccp.org 12/08/2023 16:57 EDT [facility] Attestation By the signature below, the attending physician certifies that they have personally conducted a gross and/or microscopic examination of the described specimens and rendered or confirmed the above diagnosis. 12/08/2023 16:57 EDT [facility] at 1657 Clinical History See below 12/08/19 16:57 EDT [facility] Performing Lab [facility] 12/08/2023 16:57 T [facility] Scanned Images 12/08/2023 16:57 T [facility] Pap Test CERVIX UTERI STRUCTURE / Unknown 12/04/2023 9:15 EDT 12/06/2023 9:01 EDT us Jennifer Sim APRN PATHOLOGY ORDERABLES Noemí l Result [facility] [address] [place], [place] [id number] documented in this encounter Visit Diagnoses Diagnosis Encounter for other general examination documented in this encounter Care Teams Systems Engineering Manager Relationship Specialty Start Date End Date Lilly Marroquin NP [address] [place] [address] PCP - General Family Medicine - Primary Care 11/10/23 documented as of this encounter
--- OUTSIDE RECORDS SUMMARY | 2024-09-13 01:29 | XMS_ITS | Encounter Summary ---
Author Organization [facility] Address [address] [place] [address] Care Team Providers Care It Help Desk Manager Name Role Phone Lilly Marroquin LUBRICATING SPECIALIST Primary Care Provider [phone] Encounter Details Date Type Department Care Team (Late st Contact Info) Description 12/29/2023 Lab Requisition [facility] Pathology & Laboratory Medicine - [address] [address] Audrey Morris [address] [place] [address] [place] [address] Encounter for other general examination [...] Date/Time Associated Diagnosis Comments SURGICAL PATHOLOGY Today 12/28/2023 14 :40 EDT Encounter for other general examination documented in this encounter Results * SURGICAL PATHOLOGY (12/28/2023 14:40 EDT) Note to Patient The following pathology results have been interpreted by your pathologist and may be available to you before your health provider has had the opportunity to review them. Please allow time for your provider to receive these results and explore management options, if applicable. 01/10/2024 11:10 EDT [facility] Final Diagnosis A. ENDOCERVIX, CURETTAGE: - Detached fragment of atypical squamous epithelium, cannot exclude high grade dysplasia. See comment. - Scant fragments of benign endocervical tissue. B. CERVIX, 1 O'CLOCK, BIOPSY: - High grade squamous intraepithelial lesion (YAN 2). See comment. 01/10/2024 11:10 [facility] Diagnosis Comment Manganese Heater slides of this case were reviewed at the intradepartmental consultation conference. 01/10/2024 11:10 [facility] Attestation There was significant resident/fellow involvement in the diagnostic evaluation of this case. By the signature below, the attending physician certifies that they have personally conducted a gross and/or microscopic examination of the described specimens and rendered or confirmed the above diagnosis. 01/10/2024 11:10 [facility] at 1110 Clinical History LSIL 01/10/2024 11:10 [facility] Gross Description A. Received in formalin labelled with proper patient identification (initials D, A) and ECC is an aggregate of soft clear to translucent white mucus (2.0 x 1.7 x 0.4 cm). Entirely submitted in A1-A2. B. Received in formalin labelled with proper patient identification (initials D, A) and cervical bx at 1 o'clock is a single rubbery white focally collazo speckled tissue fragment (0.4 x 0.4 x 0.2 cm). Entirely submitted in B1. Laurie Merino 12/29/2023 9:58 01/10/2024 11:10 [facility] Resident/Fell ow: Gilberto Blanca DO 01/10/2024 11:10 [facility] Performing Lab [facility] 01/10/2024 11:10 [facility] Scanned Images 01/10/2024 11:10 [facility] Tissue CERVIX UTERI STRUCTURE / Unknown 12/28/2023 14:40 EDT 12/29/2023 7:43 EDT Tissue specimen (specimen) CERVIX UTERI STRUCTURE / Unknown 12/28/2023 14:40 EDT 12/29/2023 7:44 EDT us Audrey Arturo PATHOLOGY ORDERABLES Final Resul t [facility] [address] [place] [address] documented in this encounter Visit Diagnoses Diagnosis Encounter for other general examination documented in this encounter Care Teams It Help Desk Manager Relationship Specialty Start Date End Date Lilly Marroquin, LUBRICATING SPECIALIST [address] [place] [address] PCP - General Family Medicine - Primary Care 11/10/23 documented as of this encounter
--- OUTSIDE RECORDS SUMMARY | 2024-09-13 01:29 | XMS_ITS | Encounter Summary ---
Author Organization [facility] Address [address] [place] [address] Care Team Providers Care Hairspring Cutter Name Role Phone Aram Alvarez MD Primary Care Provider Meseret Jackson TIE SAWYER Primary Care Provider [phone] Lilly Marroquin TIE SAWYER Primary Care Provider [phone] Encounter Details Date Type Department Care Team (Late st Contact Info) Description 06/18/2021 Lab Requisition [facility] Pathology & Laboratory Medicine - [address] [id number] Outr Resulting Lab, Provider Social History Tobacco [...] Procedure Name Priority Date/Time Associated Diagnosis Comments ZZCOVID-19 TEST [facility] PCR Today 06/17/2021 18:40 EDT COVID-19 TESTING Routine 06/17/2021 18:4 0 EDT documented in this encounter Results * COVID-19 TEST [facility] PCR (06/17/2021 18:40 EDT) Swab ENTIRE NASOPHARYNX / Unknown 06/17/2021 18:40 EDT 06/18/2021 16:17 EDT us Provider Outr Resulting Lab MICROBIOLOGY - GENER AL ORDERABLES Final Result Performing Organization Address City/[facility]/ZIP Co de Phone Number [facility] [address] [place] [address] * COVID-19 TESTING (06/17/2021 18:40 EDT) COVID-19 rt-PCR Result Negative Negative 06/19/2021 15:22 EDT [facility] Comment:This is an appended report. These results have been appended to a previously preliminary verified report. Performing Lab [facility] 06/19/2021 15:22 EDT [facility] Swab 06/17/2021 18:4 0 EDT 06/18/2021 16:17 EDT us Provider Outr Resulting Lab MICROBIOLOGY - GENER AL ORDERABLES Final Result Performing Organization Address [facility] Co de Phone Number [facility] [address] [place] [address] documented in this encounter Visit Diagnoses Not on filedocumented in this encounter Care Teams Hairspring Cutter Relationship Specialty Start Date End Date Aram Alvarez MD PCP - General 02/14/11 09/10/22 Meseret Rolon, TIE SAWYER [address] [place] [place], [place] [phone] PCP - General 09/11/22 11/09/23 Lilly Marroquin, TIE SAWYER [address] [place], [place] [address] PCP - General Family Medicine - Primary Care 11/10/23 documented as of this encounter
[2024-09-13 15:35] LABS: Panorama Kit Sent via Fed Ex
[2024-09-13 15:46] LABS: Abs Immature Grans 0.05 10^3/uL (0.0-0.06); Absolute Basophil Count 0.05 10^3/uL (0.0-0.2); Absolute Eosinophil Count 0.28 10^3/uL (0.0-0.7); Absolute Lymphocyte Count 1.56 10^3/uL (1.2-3.4); Absolute Monocyte Count 0.44 10^3/uL (0.1-0.8); Basophils % 0.6 %; Eosinophils % 3.1 %; HCT 34.6 % (36.0-46.0); HGB 11.9 g/dL (11.2-15.7); Immature Grans % 0.6 %; Lymphocytes % 17.4 %; MCH 30.9 pg (27.0-33.0); MCHC 34.4 % (32.0-36.0); MCV 90 fL (80-95); MPV 9.7 fL (8.0-11.0); Monocytes % 4.9 %; Neutrophils % 73.4 %; Platelet Count 226 10^3/uL (130-400); RBC 3.85 10^6/uL (3.93-5.22); RDW 12.6 % (11.7-14.6); RDW-SD 41.2 fL; WBC 8.98 10^3/uL (4.4-10.8)
[2024-09-16 11:21] LABS: HIV-1/2 Ag & Ab Screen Negative (Negative)
[2024-09-16 11:29] LABS: Rubella IgG Ab (UVM) Positive (See Note)
[2024-09-16 11:31] LABS: Hepatitis C Ab w Rflx HCV PCR Negative (Negative); Varicella IgG Antibody Negative (See Note)
[2024-09-16 12:06] LABS: Hepatitis B Surface Ag Negative (Negative)
[2024-09-17 11:14] LABS: Coag FactorVIII Activity Assay 219 % (55 - 200); von Willebrand Factor Activity 176 % (55 - 200); von Willebrand Factor Ag 194 % (55 - 200)
[2024-09-17 14:32] LABS: Syphilis IgG w/Reflex Nonreactive (Nonreactive)
[2024-09-23 11:05] LABS: Specimen WB Whole Blood
[2024-09-30 12:46] LABS: Result Summary NEGATIVE; Specimen WB Whole Blood
== END 2024-09-13 01:28 | disposition home or self-care (01) ==
LOC: LBO 01:27
PROVIDERS: Advanced Practice Midwife; PCP Nurse Practitioner Family; Visit Provider Advanced Practice Midwife
DX: Z34.91 Encounter for supervision of normal pregnancy, unspecified, first trimester (principal)
CPT/HCPCS: 36415; 81220; 81222; 81329; 85240; 85246; 85390; 85397; 86787; 86803; 86850; 86900; 86901; 87340; 87389; 85025; 86762; 86780

== ENCOUNTER 2024-09-13 14:11 | Outpatient (REF) | payer OTHER, SELFPAY | END 2024-09-13 14:12 | disposition home or self-care (01) | LOC: LBN 14:11 | PROVIDERS: PCP Nurse Practitioner Family; Visit Provider Advanced Practice Midwife | DX: Z34.91 Encounter for supervision of normal pregnancy, unspecified, first trimester (principal) | CPT/HCPCS: 87086 ==

== ENCOUNTER 2024-10-07 19:31 | Emergency (ER) | payer OTHER, SELFPAY ==
[2024-10-07 19:34] VITALS: BP 133/81; PULSE 75; RESP 16; TEMP 36.6; O2SAT 100
[2024-10-07 20:39] VITALS: BP 128/80; PULSE 72; RESP 16; O2SAT 99
--- NOTE | 2024-10-07 22:55 | W.ED.GENAD ---
Discharge Plan Disposition Patient Disposition: Home Condition: Stable Discharge Details Clinical Impression: , Abdominal injury Primary Care Provider: Lilly Marroquin ED Provider: Norma Rosen Home Meds and New Rx's Prescriptions: No Action loratadine 10 mg tablet 10 mg PO DAILY PRN (Reason: allergy symptoms) Qty: 90 4RF Rx Instructions: take one tablet once a day at bedtime (DME) [employer]lo Aerochamber Spacer See Rx Instructions .Route Qty: 1 0RF Rx Instructions: As directed triamcinolone acetonide 0.1 % ointment 1 applic topical BID Qty: 30 1RF Rx Instructions: apply thin layer to eczema lesions twice a day for 7 days albuterol sulfate 90 mcg/actuation HFA aerosol inhaler 2 puff Inhalation Q4H Qty: 8.5 3RF Rx Instructions: take 2 puffs (5 minutes apart) 15 minutes prior to exercise and every 4 hours as needed for wheezing fluticasone propionate 50 mcg/actuation spray,suspension 1 spray intranasal DAILY PRN (Reason: sinusitis) Qty: 16 0RF Rx Instructions: administer into each nostril azelastine [Astepro] 205.5 MCG/0.137 ML spray,non-aerosol 1 spray NS BID PRNQty: 1 Rx Instructions: use for allergies PNV cmb#95-ferrous fumarate-FA [] 28 mg iron- 800 mcg tablet 1 tab PO DAILY Discharge Instructions Additional Instructions: Your examination and heart her tones are normal Take Tylenol as needed for discomfort Follow-up with your OB team Return to the emergency department if you develop severe pain, cramping, bleeding HPI General Date/Time Provider Initiated Documentation: 10/07/24 20:04. Limitations to Documentation: no limitations. Information obtained by: patient. HPI Narrative: 24-year-old female G1, P0 at 15 weeks presents for evaluation of some abdominal pain. She reports around 2:00 this afternoon a kindergarten student ran into her and head butted her in her abdomen. She reports some mild pain. Mild cramping. Denies any severe or persistent pain. Denies any vaginal bleeding or leaking fluid. She called her train conductor who referred her to the emergency department. Related Data Home Medications ?Medication ?Instructions ?Recorded ?Confirmed azelastine 205.5 mcg (0.15 %) 1 spray NS BID PRN ##1 12/23/15 10/07/24 nasal spray (Astepro) triamcinolone acetonide 0.1 % 1 applic topical BID #30 grams 09/16/21 10/07/24 topical ointment inhalational spacing device #1 ea 01/17/22 10/07/24 (RiteFlo Aerochamber) loratadine 10 mg tablet 10 mg PO DAILY PRN allergy 01/17/22 10/07/24 symptoms #90 tab-caps albuterol sulfate 90 mcg/actuation 2 puff inhalation Q4H #8.5 grams 10/03/24 10/07/24 aerosol inhaler fluticasone propionate 50 1 spray intranasal DAILY PRN 10/03/24 10/07/24 mcg/actuation nasal sinusitis #16 grams spray,suspension vit no.95-ferrous 1 tab PO DAILY 10/07/24 10/07/24 fumarate 28 mg-folic acid 800 mcg tablet () Previous Rx's ?Medication ?Instructions ?Recorded triamcinolone acetonide 0.1 % 1 applic topical BID #30 grams 09/16/21 topical ointment inhalational spacing device #1 ea 01/17/22 (RiteFlo Aerochamber) loratadine 10 mg tablet 10 mg PO DAILY PRN allergy 01/17/22 symptoms #90 tab-caps albuterol sulfate 90 mcg/actuation 2 puff inhalation Q4H #8.5 grams 10/03/24 aerosol inhaler fluticasone propionate 50 1 spray intranasal DAILY PRN 10/03/24 mcg/actuation nasal sinusitis #16 grams spray,suspension Allergies Allergy/AdvReac Type Severity Reaction Status Date / Time No Known Allergies Allergy Verified 10/07/24 19:35 General Stated Complaint: PRINCIPAL BIOSTATISTICIAN SUMA: 3 Exam Narrative Exam Narrative: Review of Systems: All systems reviewed & are unremarkable except as noted in HPI and below Well-developed, no acute distress NCAT PERRL, normal conjunctiva RRR Unlabored respiratory effort Nondistended abdomen soft nontender Active movement and normal heart rate Course Vital Signs Vital signs: Vital Signs Temperature 36.6 C 10/07/24 19:34 Pulse 75 10/07/24 19:34 Respiratory Rate 16 10/07/24 19:34 Blood Pressure 133/81 10/07/24 19:34 Pulse Oximetry 100 01/27/25 19:34 Temperature 36.6 C 10/07/24 19:34 Pulse 72 10/07/24 20:39 Respiratory Rate 16 10/07/24 20:39 Blood Pressure 128/80 10/07/24 20:39 Pulse Oximetry 99 10/07/24 20:39 Pain Level 0 10/07/24 19:34 Medical Decision Making Emergent evaluation of mild abdominal trauma in . Patient is 15 weeks. The patient did not have a severe traumatic mechanism and is not have any concerning symptoms. There is active movement noted with a normal heart rate. I have a low suspicion for placental injury given the fact that she is not having significant pain and is not having any bleeding. Patient was reassured and stable for discharge home and close follow-up with train conductor team. Quality:SDOH Health Related Social Needs: No Data to Display PFSH All Active Problems Abdominal injury (Acute) (Acute) Maternal varicella, non-immune (Acute) (Acute) Viral URI with cough (Acute) Delayed menses (Acute) YAN II (cervical intraepithelial neoplasia II) (Acute) YAN-2?3. Recommend conization via LEEP. Abdominal discomfort in right lower quadrant (Acute) Nausea (Acute) History of colposcopy with cervical biopsy (Acute) 10/2022. ECC not processed. Cervical biopsy no dysplasia. Plan repeat Pap 2023 Abnormal Pap smear of cervix (Acute) 09/2022. Initial screening pap: LGSIL. Cannot exclude HGSIL. No HPV testing done. 10/2022.Colpo bx. 01/02-Pap equals LSIL. Colpo 01/02?ECC with biopsy at 1:00-YAN II rec colpo with pap at 6 and 12 months (07/04 and 01/03) Colpo 07/10/2024. 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) Asthma (Chronic 01/01/14) intermittent trigger- allergies and URI's Allergic rhinitis (Chronic 01/01/14) 01/03/13-Followed by [facility] Allergy- allergies to dust mites, cat, dog, other animals, tree, grass, weeds, mouse Medical History Migraine with aura RLQ abdominal pain Laceration of left index finger Constipation with ileus Respiratory syncytial virus bronchiolitis Surgical History [place] teeth extracted Family History Mother Personal history of malignant neoplasm breast cancer Mental disorder anxiety, panic disorder Other Diabetes MGM, maternal great grandparents Asthma maternal side Sister Asthma Social History Smoking/Tobacco Use Status: Former Tobacco Use Second Hand Exposure: No Smoking risk assessment performed?: Yes Alcohol Intake: current Drug use: Never Substance use type: does not use Household members: family Housing: house Number of Children: 0 Education Level: college Details: [employer]. 2022. [employer]. 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 Education major. Pets and animals: Yes (2 dogs) Pets and animals: dog(s) Sexually active: Yes (Pt's BF Ambrosio. [employer] truck driver heavy.) Current gender identity: female What type of physical activity do you participate in: none Seatbelt use: always Helmet use: Yes Drive intox or ride w/intox truck driver heavy: No Do you feel safe at home: Yes Do you feel safe in your relationship?: Yes Additional Social history: Pt's mother is Laura Espinoza, Pt of [facility]. Female Reproductive History Menstrual Duration of menses: 6-7 days control method: none and condoms History History 1 Para Hx # Term Pregnancies Multiple births Hx # Pregnancies Ectopic pregnancies AB induced Hx Number of Living Children AB spontaneous
== END 2024-10-07 20:39 | disposition home or self-care (01) ==
PROVIDERS: Emergency Provider Emergency Medicine; PCP Nurse Practitioner Family
DX: S39.91XA Unspecified injury of abdomen, initial encounter (principal); Z34.91 Encounter for supervision of normal pregnancy, unspecified, first trimester; W22.8XXA Striking against or struck by other objects, initial encounter; Y92.211 Elementary school as the place of occurrence of the external cause; Y99.0 Civilian activity done for income or pay; R10.84 Generalized abdominal pain
CPT/HCPCS: 99282; 99283

== ENCOUNTER 2024-10-11 00:48 | Outpatient (CLI) | payer OTHER, SELFPAY ==
[2024-10-11 16:20] LABS: Glucose,1 Hr (Glucola) 91 mg/dL (80-140)
[2024-10-15 12:47] LABS: Cigarette smoking status non-Smoker; GA used in risk estimate Dates estimate; IVF Pregnancy No; Initial or repeat testing Initial testing; Insulin dependent diabetes No; Maternal Weight 171 lbs; Number of Fetuses 1; Prev Pregnancy w/NTD No; RECOMMENDED FOLLOW UP None.; Results Summary Normal risk
== END 2024-10-11 00:49 | disposition home or self-care (01) ==
PROVIDERS: PCP Nurse Practitioner Family; Visit Provider Advanced Practice Midwife
DX: Z68.31 Body mass index [BMI] 31.0-31.9, adult (principal); Z34.91 Encounter for supervision of normal pregnancy, unspecified, first trimester
CPT/HCPCS: 36415; 82950; 82105

== ENCOUNTER 2024-10-11 15:00 | Outpatient (REF) | payer OTHER, SELFPAY ==
[2024-10-14 12:06] LABS: Chlamydia Result Negative (Negative); GC Result Negative (Negative)
== END 2024-10-11 15:01 | disposition home or self-care (01) ==
LOC: LBN 15:00
PROVIDERS: PCP Nurse Practitioner Family; Visit Provider Advanced Practice Midwife
DX: Z34.92 Encounter for supervision of normal pregnancy, unspecified, second trimester (principal); Z3A.16 16 weeks gestation of pregnancy
CPT/HCPCS: 87491; 87591

== ENCOUNTER 2024-11-23 20:38 | Outpatient (REF) | payer OTHER, SELFPAY ==
--- NOTE | 2024-11-23 21:00 | W.PM.PROGNOT ---
Date of Service Date of service: 11/23/24 Time of Service: 21:00 Assessment and Plan Assessment and plan (1) Anxiety and depression: Status: Acute Assessment and plan: Pt feeling anxious about wellbeing, came in to hear FHT after not feeling FM for a few hours. FHT is appropriate for EGA (140-160), no contractions, maternal vital signs nml Pt discharged to home stating she feels reassured, f/up as scheduled Subjective Subjective Interval history since last seen: pt reports decreased FM< no FM since 1300 today. Denies pain, bleeding, trauma, or vaginal discomforts. Feeling anxious and wants to hear the baby's heartbeat. Exam Const General: cooperative, healthy appearing, comfortable, no acute distress and well groomed Resp Effort & Inspection: normal respiratory effort and able to speak in complete sentences Cardio Rate: regular rate Rhythm: regular rhythm GI Other: Gravid abdomen at 22 wks, nontender and soft Extrem General: normal to inspection and full ROM Psych Mood: congruent mood Affect: normal affect Attitude: cooperative Thought Process: normal Objective Last Vital Signs Temp 97.9 F 11/23/24 21:15 Pulse 83 11/23/24 21:15 BP 120/73 11/23/24 21:15 Reviewed Pertinent PMH: Yes Time Spent with Patient Time Spent with Patient: <25 minutes Time was spent: preparing to see the patient(eg.review tests), obtaining and/or reviewing separately otained hiistory, indepentently interpreting results and counseling the patient
[2024-11-23 21:15] VITALS: BP 120/73; PULSE 83; TEMP 36.6
== END 2024-11-23 21:30 ==
LOC: BCD 20:38
PROVIDERS: PCP Nurse Practitioner Family; Visit Provider Advanced Practice Midwife
DX: O36.8120 Decreased fetal movements, second trimester, not applicable or unspecified; Z3A.22 22 weeks gestation of pregnancy

== ENCOUNTER 2024-12-15 21:29 | Outpatient (CLI) | payer OTHER, SELFPAY ==
[2024-12-15 22:15] VITALS: BP 109/61; PULSE 84; TEMP 36.8
[2024-12-15 22:40] VITALS: BP 109/61; PULSE 84
--- NOTE | 2024-12-16 08:07 | W.OBNST ---
Date of service: 12/15/24 Time of Service: 22:00 NST Evaluation Reason for NST Reasons for Nonstress Test: DECREASED MOVEMENT Gestational Age Gestational Age in Weeks and Days: 25 Weeks and 2Days Test and Monitor Explained Test/Monitor Explained: Test Explained, Monitor Explained and Patient Verbalized Understanding Vital Signs Blood Pressure: 109/61 Pulse: 84 Temperature: 98.2 F NST Information Date on Monitor: 12/15/24 Time on Monitor: 21:58 Date off Monitor: 12/15/24 Time off Monitor: 22:38 Total Time on Monitor: 40 NST Interventions: None NST Evaluation Patient States Movement: Present FHR Baseline: 135 Variability: Moderate 6-25 bpm Accelerations: Prolonged Decelerations: None NST Results: Reactive Note Ultrasound Done: N/A. NST Note NST Reviewed and Verified by: Lilly Mcguire
[2024-12-16 08:08] VITALS: BP 109/61; PULSE 84; TEMP 36.8
[2024-12-16 18:42] VITALS: BP 111/65; PULSE 107
[2024-12-17 09:24] VITALS: BP 132/80; PULSE 99
[2024-12-17 21:10] VITALS: BP 118/71; PULSE 90
[2024-12-17 21:12] VITALS: PULSE 91; O2SAT 100
[2024-12-17 21:17] VITALS: PULSE 92; O2SAT 99
== END 2024-12-15 22:47 ==
LOC: BCD 21:29 → OBS 21:56
PROVIDERS: PCP Nurse Practitioner Family; Visit Provider Advanced Practice Midwife
DX: O36.8121 Decreased fetal movements, second trimester, fetus 1 (principal); Z3A.25 25 weeks gestation of pregnancy
CPT/HCPCS: 59025

== ENCOUNTER 2024-12-31 03:49 | Outpatient (CLI) | payer OTHER, SELFPAY ==
[2024-12-31 11:36] LABS: HCT 31.2 % (36.0-46.0); HGB 10.2 g/dL (11.2-15.7); MCH 30.1 pg (27.0-33.0); MCHC 32.7 % (32.0-36.0); MCV 92 fL (80-95); MPV 9.2 fL (8.0-11.0); Platelet Count 243 10^3/uL (130-400); RBC 3.39 10^6/uL (3.93-5.22); RDW 12.3 % (11.7-14.6); RDW-SD 41.6 fL; WBC 11.65 10^3/uL (4.4-10.8)
[2024-12-31 11:45] LABS: Glucose,1 Hr (Glucola) 134 mg/dL (80-140)
== END 2024-12-31 03:50 | disposition home or self-care (01) ==
LOC: LBO 03:49
PROVIDERS: PCP Nurse Practitioner Family; Visit Provider Advanced Practice Midwife
DX: Z34.92 Encounter for supervision of normal pregnancy, unspecified, second trimester (principal)
CPT/HCPCS: 36415; 82950; 85027

== ENCOUNTER 2025-01-26 16:52 | Outpatient (CLI) | payer OTHER, SELFPAY ==
[2025-01-26 17:24] VITALS: BP 107/66; PULSE 90
[2025-01-26 17:25] VITALS: BP 107/66; PULSE 90; TEMP 36.9
--- NOTE | 2025-01-26 18:00 | W.OBNST ---
Date of service: 01/26/25 Time of Service: 17:30 NST Evaluation Reason for NST Reasons for Nonstress Test: LABOR Reason for NST Other: cramping and low back pain Gestational Age Gestational Age in Weeks and Days: 31 Weeks and 2Days Test and Monitor Explained Test/Monitor Explained: Test Explained Vital Signs Blood Pressure: 107/66 Pulse: 90 Temperature: 98.4 F Urine Results Urine Protein: Negative Urine Ketones: Negative Urine Glucose: Negative Urine Blood: Negative NST Information Date on Monitor: 01/26/25 Time on Monitor: 17:27 Date off Monitor: 01/26/25 Time off Monitor: 18:00 Total Time on Monitor: 33 NST Interventions: PO Hydration Contraction Frequency: 0 NST Evaluation Patient States Movement: Present FHR Baseline: 125 Variability: Moderate 6-25 bpm Accelerations: 15x15 Decelerations: None NST Results: Reactive Note Ultrasound Done: N/A. NST Note Note: no contractions per toco, cvx closed, thick, no presenting part in pelvis, intact membranes, nml appearing vaginal mucous Pt reports today she graduated from school, active all day, Last coitus ~36 hrs ago, no bleeding UA is negative Discharged to home with warning sx reviewed Given tylenol for back pain, f/up end of the week or prn NST Reviewed and Verified by: Lilly Mcguire
[2025-01-26] MEDS: Acetaminophen 325 MG TAB 650 MG PO (18:28)
[2025-01-27 08:08] VITALS: BP 107/66; PULSE 90; TEMP 36.9
== END 2025-01-26 18:32 | disposition home health service (06) ==
LOC: BCD 16:53 → OBS 16:59
PROVIDERS: PCP Nurse Practitioner Family; Visit Provider Advanced Practice Midwife
DX: O47.03 False labor before 37 completed weeks of gestation, third trimester (principal); Z3A.31 31 weeks gestation of pregnancy
CPT/HCPCS: 59025

== ENCOUNTER 2025-02-11 17:35 | Outpatient (REF) | payer OTHER, SELFPAY | END 2025-02-11 17:36 | disposition home or self-care (01) | LOC: LBN 17:35 | PROVIDERS: PCP Nurse Practitioner Family; Visit Provider Nurse Practitioner Family | DX: J02.9 Acute pharyngitis, unspecified (principal) | CPT/HCPCS: 87070 ==

== ENCOUNTER 2025-02-13 02:21 | Outpatient (CLI) | payer OTHER, SELFPAY ==
--- NOTE | 2025-02-13 08:00 | DI.US_ITS ---
Exam(s) US OB NIC WEIGHT EXAM: US OB NIC WEIGHT CLINICAL HISTORY: interval growth,O26.00,excessive wt gain. TECHNIQUE: Transabdominal obstetrical ultrasound performed. COMPARISON: US US OB 2-3 TRIMESTER from 11/05/2024 FINDINGS: Number of fetuses: 1 position: BREECH Placental location: There is a grade 2 anterior placenta. No evidence of previa. BIOMETRIC DATA: BPD: 8.75cm, 35weeks 2days HC: 32.72cm, 37weeks 1day AC: 30.47cm, 34weeks 3days FL: 6.95cm, 35weeks 5days EFW: 2,602.86g, 5lb 11.38oz, 80.5% Composite Age: 35weeks 5days NILESH: 03/15/2025 Heart Rate: 148bpm Amniotic fluid index: 6.34cm. The largest pocket measures 3.1 cm. IMPRESSION: 1. Single live intrauterine gestation as above. 2. Estimated weight is 2603gms. This is the 81st percentile. 3. Amniotic fluid index is 6.3 cm. The largest pocket measures 3.1 cm. Unexpected findings DATA REPOSITORY:
== END 2025-02-13 02:41 ==
LOC: DI 02:21
PROVIDERS: PCP Nurse Practitioner Family; Visit Provider Advanced Practice Midwife
DX: O26.03 Excessive weight gain in pregnancy, third trimester (principal); Z3A.37 37 weeks gestation of pregnancy
CPT/HCPCS: 76816

== ENCOUNTER 2025-02-18 07:24 | Outpatient (CLI) | payer OTHER, SELFPAY ==
[2025-02-18 14:44] VITALS: BP 108/65; PULSE 91
[2025-02-18 14:47] VITALS: BP 108/65; PULSE 91; TEMP 36.8
--- NOTE | 2025-02-18 15:44 | W.OBNST ---
Date of service: 02/18/25 Time of Service: 15:44 NST Evaluation Reason for NST Reasons for Nonstress Test: OLIGOHYDRAMNIOS Gestational Age Gestational Age in Weeks and Days: 34 Weeks and 4Days Test and Monitor Explained Test/Monitor Explained: Test Explained, Monitor Explained and Patient Verbalized Understanding Vital Signs Blood Pressure: 108/65 Pulse: 91 Temperature: 98.2 F NST Information Date on Monitor: 02/18/25 Time on Monitor: 14:44 Date off Monitor: 02/18/25 Time off Monitor: 15:12 Total Time on Monitor: 28 NST Interventions: None Contraction Frequency: 0 NST Evaluation Patient States Movement: Present FHR Baseline: 125 Variability: Moderate 6-25 bpm Accelerations: 15x15 Decelerations: None NST Results: Reactive Note Ultrasound Done: NIC (last NIC 6.3) Total NIC: 7.12 Other Pertinent Findings: Heart Rate (122), Presentation (breech), Placental Location (anterior) and Other Coding for NIC w/NST: Completed Exam. NST Note Note: Appt 02/[address] Morris to discuss presentation NST Reviewed and Verified by: Lilly Mcguire
[2025-02-18 15:45] VITALS: BP 108/65; PULSE 91; TEMP 36.8
== END 2025-02-18 15:25 ==
LOC: BCD 07:24 → OBS 14:23
PROVIDERS: PCP Nurse Practitioner Family; Visit Provider Advanced Practice Midwife
DX: O41.03X1 Oligohydramnios, third trimester, fetus 1 (principal); Z3A.34 34 weeks gestation of pregnancy
CPT/HCPCS: 59025

== ENCOUNTER 2025-02-25 07:17 | Outpatient (CLI) | payer OTHER, SELFPAY ==
[2025-02-25 14:04] VITALS: BP 125/73; PULSE 86; TEMP 37.3
[2025-02-25 14:08] VITALS: BP 125/73; PULSE 86
--- NOTE | 2025-02-25 16:15 | W.OBNST ---
Date of service: 02/25/25 Time of Service: 16:15 NST Evaluation Reason for NST Reasons for Nonstress Test: OLIGOHYDRAMNIOS Gestational Age Gestational Age in Weeks and Days: 35 Weeks and 4Days Test and Monitor Explained Test/Monitor Explained: Test Explained, Monitor Explained and Patient Verbalized Understanding Vital Signs Blood Pressure: 125/73 Pulse: 86 Temperature: 99.1 F Urine Results Urine Protein: Negative Urine Ketones: Positive Urine Glucose: Negative Urine Blood: Negative NST Information Time on Monitor: 14:08 Date off Monitor: 02/25/25 NST Interventions: None Contraction Frequency: 2-4 NST Evaluation Patient States Movement: Present FHR Baseline: 135 Variability: Moderate 6-25 bpm Accelerations: 15x15 Decelerations: None NST Results: Reactive Note Ultrasound Done: N/A. NST Note Note: 24 yo at 35 4/7 as dated by LMP equal to 8 wk US (NILESH: 03/29/2025). Presents for NST for borderline low amniotic fluid. She reports feeling well. She denies any contractions, bleeding, or leakage. She reports good movement. Labor precautions reviewed. NST Reviewed and Verified by: Laura Arrington
[2025-02-25 16:17] VITALS: BP 125/73; PULSE 86; TEMP 37.3
== END 2025-02-25 15:00 ==
LOC: BCD 07:18 → OBS 13:59
PROVIDERS: PCP Nurse Practitioner Family; Visit Provider Advanced Practice Midwife
DX: Z3A.35 35 weeks gestation of pregnancy (principal); O41.03X1 Oligohydramnios, third trimester, fetus 1
CPT/HCPCS: 59025

== ENCOUNTER 2025-02-26 03:33 | Outpatient (CLI) | payer OTHER, SELFPAY ==
--- NOTE | 2025-02-26 15:01 | W.NUTRFU ---
Date of service: 02/26/25 Time of Service: 14:00 Nutrition Note NOTE: Kendra referred to nutrition visit for elevated weight gain in and abnormal glucose. Has been tracking fasting glucose and ~1 hour post prandial and brought in log - affirmed she is doing great with keeping things organized and tracking. fasting and post prandial glucose <140 per log outside of 1 or 2 just above 140. We reviewed diet hx/usual diet and suggested to Kendra that she could benefit from choosing more whole grain choices/high fiber choices when it comes to starch choices and could also benefit from balancing her plate with lean protein at meals more for greater satiety and also to add to her total daily protein intake, with needs increased during pg. Breakfast choices of fuit and lower fiber toast can be balanced with a protein source and choosing a bread with at least 3g fiber per slice. Reviewed other high fiber choices and keeping her carb servings to ~11 per day and consider tracking fiber periodically to ensure at least 25g per day, especially in 3rd trimester when constipation can be a common experience. Encouraged avoidance of SSB's of any kind and also avoid juice (eat whole fruit). Kendra has my contact info is she needs to go over diet over the phone/office or would like additional resources - gave handout reviewing balancing plate and lists of serving sizes for common CHO choices. Time Spent in Nutritional Counseling and Treatment: 25 min
== END 2025-02-26 03:34 | disposition home or self-care (01) ==
PROVIDERS: PCP Nurse Practitioner Family; Visit Provider Dietitian, Registered
DX: R73.09 Other abnormal glucose (principal); O26.03 Excessive weight gain in pregnancy, third trimester
CPT/HCPCS: 00123; 97802

== ENCOUNTER 2025-02-28 07:03 | Outpatient (CLI) | payer OTHER, SELFPAY ==
[2025-02-28 14:41] VITALS: BP 123/70; PULSE 93; TEMP 36.5
[2025-02-28 14:57] VITALS: BP 123/70; PULSE 93
--- NOTE | 2025-02-28 15:38 | W.OBNST ---
Date of service: 02/28/25 Time of Service: 15:38 NST Evaluation Reason for NST Reasons for Nonstress Test: OLIGOHYDRAMNIOS Gestational Age Gestational Age in Weeks and Days: 36 Weeks and 0Days Test and Monitor Explained Test/Monitor Explained: Test Explained, Monitor Explained and Patient Verbalized Understanding Vital Signs Blood Pressure: 123/70 Pulse: 93 Temperature: 97.7 F Urine Results Urine Protein: Negative Urine Ketones: Negative Urine Glucose: Negative Urine Blood: Negative NST Information Date on Monitor: 02/28/25 Time on Monitor: 14:30 Date off Monitor: 02/28/25 Time off Monitor: 15:20 Total Time on Monitor: 50 NST Interventions: None NST Evaluation Patient States Movement: Present FHR Baseline: 140 Variability: Moderate 6-25 bpm Accelerations: 15x15 Decelerations: None NST Results: Reactive Note Ultrasound Done: NIC Largest Vertical Pocket: 2.8 Total NIC: 5.4 Other Pertinent Findings: Placental Location (Anterior) Coding for NIC w/NST: Completed Exam and Presentation (Breech) Presentation Results: Breech Coding for Presentation w/NST: Completed Exam. NST Note Note: Patient seen for surveillance. She has category 1 reactive strip with contractions every 4 minutes. These are mild. She is having no bleeding or leaking. Ultrasound was performed confirming breech presentation with an NIC total of 5.4 deepest vertical pocket of 2.8. We discussed the possibility of version versus . She opts for delivery. Informed consent was obtained. This will be scheduled after 39 weeks. In the interval, she will continue to have twice weekly NSTs. NST Reviewed and Verified by: Audrey Morris
[2025-02-28 15:40] VITALS: BP 123/70; PULSE 93; TEMP 36.5
== END 2025-02-28 15:49 ==
LOC: BCD 07:03 → OBS 14:39
PROVIDERS: PCP Nurse Practitioner Family; Visit Provider Advanced Practice Midwife
DX: O41.03X1 Oligohydramnios, third trimester, fetus 1 (principal); Z3A.35 35 weeks gestation of pregnancy
CPT/HCPCS: 59025

== ENCOUNTER 2025-03-01 21:20 | Outpatient (CLI) | payer OTHER, SELFPAY ==
[2025-03-01 21:55] VITALS: BP 121/70; PULSE 93
[2025-03-01 22:00] VITALS: BP 121/70; PULSE 93; RESP 18
[2025-03-01] MEDS: Butalbital/Acetaminophen/Caffeine 50/325/40 TAB PO (22:50)
--- NOTE | 2025-03-04 07:27 | W.OBNST ---
Date of service: 03/01/25 Time of Service: 22:00 NST Evaluation Reason for NST Reasons for Nonstress Test: DECREASED MOVEMENT Gestational Age Gestational Age in Weeks and Days: 36 Weeks and 1Days Test and Monitor Explained Test/Monitor Explained: Test Explained and Patient Verbalized Understanding Vital Signs Blood Pressure: 121/70 Pulse: 93 NST Information Date on Monitor: 03/01/25 Time on Monitor: 21:45 Date off Monitor: 03/01/25 Time off Monitor: 22:10 Total Time on Monitor: 25 NST Interventions: None NST Evaluation Patient States Movement: Present FHR Baseline: 140 Variability: Moderate 6-25 bpm Accelerations: 15x15 Decelerations: None NST Results: Reactive Note Ultrasound Done: N/A. NST Note Note: Category 1, reactive NST. Normal blood pressure. Normal labs. NST Reviewed and Verified by: Audrey Morris
[2025-03-04 07:28] VITALS: BP 121/70; PULSE 93
== END 2025-03-01 22:50 ==
LOC: BCD 21:20 → OBS 22:38
PROVIDERS: PCP Nurse Practitioner Family; Visit Provider Obstetrics & Gynecology
DX: Z3A.36 36 weeks gestation of pregnancy (principal); O36.8131 Decreased fetal movements, third trimester, fetus 1
CPT/HCPCS: 59025; G0378

== ENCOUNTER 2025-03-04 08:03 | Outpatient (CLI) | payer OTHER, SELFPAY ==
[2025-03-04 11:56] VITALS: BP 129/88; PULSE 85; TEMP 36.8
[2025-03-04 12:01] VITALS: BP 129/88; PULSE 85
[2025-03-04 12:28] VITALS: BP 124/73; PULSE 86
--- NOTE | 2025-03-04 14:03 | W.OBNST ---
Date of service: 03/04/25 Time of Service: 12:30 NST Evaluation Reason for NST Reasons for Nonstress Test: OLIGOHYDRAMNIOS Gestational Age Gestational Age in Weeks and Days: 36 Weeks and 4Days Test and Monitor Explained Test/Monitor Explained: Test Explained, Monitor Explained and Patient Verbalized Understanding Vital Signs Blood Pressure: 129/88 Pulse: 85 Temperature: 98.2 F Urine Results Urine Protein: Negative Urine Ketones: Negative Urine Glucose: Negative Urine Blood: Negative NST Information Date on Monitor: 03/04/25 Time on Monitor: 11:57 Date off Monitor: 03/04/25 Time off Monitor: 12:58 Total Time on Monitor: 61 NST Interventions: PO Hydration Contraction Frequency: 6-8 NST Evaluation Patient States Movement: Present FHR Baseline: 140 Variability: Moderate 6-25 bpm Accelerations: 15x15 Decelerations: None NST Results: Reactive Note Ultrasound Done: N/A. NST Note NST Reviewed and Verified by: Peri Thomas
[2025-03-04 14:05] VITALS: BP 129/88; PULSE 85; TEMP 36.8
== END 2025-03-04 13:10 | disposition home or self-care (01) ==
LOC: BCD 08:03 → OBS 11:34
PROVIDERS: PCP Nurse Practitioner Family; Visit Provider Obstetrics & Gynecology
DX: Z3A.36 36 weeks gestation of pregnancy (principal); O41.03X1 Oligohydramnios, third trimester, fetus 1
CPT/HCPCS: 59025

== ENCOUNTER 2025-03-07 07:39 | Outpatient (CLI) | payer OTHER, SELFPAY ==
[2025-03-07 12:02] VITALS: BP 122/77; PULSE 93; TEMP 36.8
[2025-03-07 12:25] VITALS: BP 122/77; PULSE 93
--- NOTE | 2025-03-07 14:02 | W.OBNST ---
Date of service: 03/07/25 Time of Service: 14:02 NST Evaluation Reason for NST Reasons for Nonstress Test: OLIGOHYDRAMNIOS Gestational Age Gestational Age in Weeks and Days: 37 Weeks and 0Days Test and Monitor Explained Test/Monitor Explained: Test Explained, Monitor Explained and Patient Verbalized Understanding Vital Signs Blood Pressure: 122/77 Pulse: 93 Temperature: 98.2 F NST Information Time on Monitor: 12:06 Date off Monitor: 03/07/25 Time off Monitor: 12:40 NST Interventions: PO Hydration NST Evaluation Patient States Movement: Present FHR Baseline: 145 Variability: Moderate 6-25 bpm Accelerations: 15x15 Decelerations: None NST Results: Reactive Note Ultrasound Done: N/A. NST Note Note: Category 1, reactive nonstress test NST Reviewed and Verified by: Audrey Morris
[2025-03-07 14:03] VITALS: BP 122/77; PULSE 93; TEMP 36.8
== END 2025-03-07 12:40 | disposition other institution (70) ==
LOC: BCD 07:39 → OBS 12:01
PROVIDERS: PCP Nurse Practitioner Family; Visit Provider Obstetrics & Gynecology
DX: Z3A.37 37 weeks gestation of pregnancy (principal); O41.03X1 Oligohydramnios, third trimester, fetus 1
CPT/HCPCS: 59025

== ENCOUNTER 2025-03-08 20:49 | Outpatient (CLI) | payer OTHER, SELFPAY ==
[2025-03-08 22:00] VITALS: BP 128/81; PULSE 87; RESP 16; TEMP 36.7; O2SAT 100
[2025-03-08 23:36] VITALS: BP 128/81; PULSE 87; TEMP 36.7
[2025-03-19 11:17] VITALS: BP 128/81; PULSE 87; TEMP 36.7
--- NOTE | 2025-03-19 11:17 | W.OBNST ---
Date of service: 03/08/25 Time of Service: 23:00 NST Evaluation Reason for NST Reasons for Nonstress Test: FALSE LABOR Gestational Age Gestational Age in Weeks and Days: 38 Weeks and 4Days Test and Monitor Explained Test/Monitor Explained: Test Explained, Monitor Explained and Patient Verbalized Understanding Vital Signs Blood Pressure: 128/81 Pulse: 87 Temperature: 98.1 F NST Information Date on Monitor: 03/08/25 Time on Monitor: 21:27 Date off Monitor: 03/08/25 Time off Monitor: 22:10 Total Time on Monitor: 43 NST Interventions: PO Hydration Contraction Frequency: Irregular/Irritability NST Evaluation Patient States Movement: Present FHR Baseline: 130 Variability: Moderate 6-25 bpm Accelerations: 15x15 Decelerations: None NST Results: Reactive Note Ultrasound Done: N/A. NST Note Note: Category 1, reactive NST NST Reviewed and Verified by: Audrey Morris
== END 2025-03-08 22:20 ==
PROVIDERS: PCP Nurse Practitioner Family; Visit Provider Obstetrics & Gynecology
DX: O47.1 False labor at or after 37 completed weeks of gestation (principal); Z3A.38 38 weeks gestation of pregnancy
CPT/HCPCS: 59025

== ENCOUNTER 2025-03-11 07:07 | Outpatient (CLI) | payer OTHER, SELFPAY ==
[2025-03-11 12:08] VITALS: BP 130/73; PULSE 93; TEMP 37.1
[2025-03-11 12:39] VITALS: BP 130/73; PULSE 93
[2025-03-11 13:43] VITALS: BP 130/73; PULSE 93; TEMP 37.1
--- NOTE | 2025-03-11 13:43 | W.OBNST ---
Date of service: 03/11/25 Time of Service: 13:43 NST Evaluation Reason for NST Reasons for Nonstress Test: OLIGOHYDRAMNIOS Gestational Age Gestational Age in Weeks and Days: 37 Weeks and 4Days Test and Monitor Explained Test/Monitor Explained: Test Explained, Monitor Explained and Patient Verbalized Understanding Vital Signs Blood Pressure: 130/73 Pulse: 93 Temperature: 98.8 F NST Information Date on Monitor: 03/11/25 Time on Monitor: 12:00 Date off Monitor: 03/11/25 Time off Monitor: 13:00 Total Time on Monitor: 60 NST Interventions: PO Hydration NST Evaluation Patient States Movement: Present FHR Baseline: 140 Variability: Moderate 6-25 bpm Accelerations: 15x15 Decelerations: None NST Results: Reactive Note Ultrasound Done: N/A. NST Note Note: Category 1, reactive NST. NST Reviewed and Verified by: Audrey Morris
== END 2025-03-11 13:05 | disposition other institution (70) ==
LOC: BCD 07:07 → OBS 12:07
PROVIDERS: PCP Nurse Practitioner Family; Visit Provider Obstetrics & Gynecology
DX: Z3A.37 37 weeks gestation of pregnancy (principal); O41.03X1 Oligohydramnios, third trimester, fetus 1
CPT/HCPCS: 59025

== ENCOUNTER 2025-03-14 07:28 | Outpatient (CLI) | payer OTHER, SELFPAY ==
[2025-03-14 10:40] VITALS: BP 135/83; PULSE 88; RESP 20; TEMP 36.8
[2025-03-14 10:59] VITALS: BP 132/90; PULSE 90
[2025-03-14 11:14] VITALS: BP 135/83; PULSE 90; TEMP 36.8
--- NOTE | 2025-03-14 11:32 | W.OBNST ---
Date of service: 03/14/25 Time of Service: 10:45 NST Evaluation Reason for NST Reasons for Nonstress Test: OLIGOHYDRAMNIOS Gestational Age Gestational Age in Weeks and Days: 38 Weeks and 0Days Test and Monitor Explained Test/Monitor Explained: Test Explained, Monitor Explained and Patient Verbalized Understanding Vital Signs Blood Pressure: 135/83 Pulse: 90 Temperature: 98.2 F Urine Results Urine Protein: Negative Urine Ketones: Negative Urine Glucose: Negative Urine Blood: Negative NST Information Date on Monitor: 03/14/25 Time on Monitor: 10:38 Date off Monitor: 03/14/25 NST Interventions: PO Hydration NST Evaluation Patient States Movement: Present FHR Baseline: 135 Variability: Moderate 6-25 bpm Accelerations: 15x15 Decelerations: None NST Results: Reactive NST Results Other: irregular with irritability. pt not feeling them or any cramping Note Ultrasound Done: N/A. NST Note Note: Pt seen for NST for oligohydramnios. Reactive. Baby still feels breech. Discussed reasons to call. She has had a mild intermittent headache but nothing persistent or out of the ordinary for her. She returns next week for her next NST. NST Reviewed and Verified by: Peri Thomas
[2025-03-14 11:34] VITALS: BP 135/83; PULSE 90; TEMP 36.8
== END 2025-03-14 11:05 ==
LOC: BCD 08:36 → OBS 10:42
PROVIDERS: PCP Nurse Practitioner Family; Visit Provider Obstetrics & Gynecology
DX: O41.03X1 Oligohydramnios, third trimester, fetus 1 (principal); Z3A.38 38 weeks gestation of pregnancy
CPT/HCPCS: 59025; 87081

== ENCOUNTER 2025-03-18 07:25 | Outpatient (CLI) | payer OTHER, SELFPAY ==
[2025-03-18 12:04] VITALS: BP 126/85; PULSE 93; TEMP 36.8
[2025-03-18 12:15] VITALS: BP 126/85; PULSE 93
--- NOTE | 2025-03-18 16:47 | W.OBNST ---
Date of service: 03/18/25 Time of Service: 18:00 NST Evaluation Reason for NST Reasons for Nonstress Test: OLIGOHYDRAMNIOS Gestational Age Gestational Age in Weeks and Days: 38 Weeks and 4Days Test and Monitor Explained Test/Monitor Explained: Test Explained, Monitor Explained and Patient Verbalized Understanding Vital Signs Blood Pressure: 126/85 Pulse: 93 Temperature: 98.2 F NST Information Date on Monitor: 03/18/25 Time on Monitor: 11:55 Date off Monitor: 03/18/25 Time off Monitor: 12:20 Total Time on Monitor: 25 NST Interventions: PO Hydration NST Evaluation Patient States Movement: Present FHR Baseline: 145 Variability: Moderate 6-25 bpm Accelerations: 15x15 Decelerations: None NST Results: Reactive Note Ultrasound Done: N/A. NST Note NST Reviewed and Verified by: Laura Arrington
--- NOTE | 2025-03-18 17:00 | W.OBNST ---
Date of service: 03/18/25 Time of Service: 17:00 NST Evaluation Reason for NST Reasons for Nonstress Test: OLIGOHYDRAMNIOS Gestational Age Gestational Age in Weeks and Days: 38 Weeks and 4Days Test and Monitor Explained Test/Monitor Explained: Test Explained, Monitor Explained and Patient Verbalized Understanding Vital Signs Blood Pressure: 126/85 Pulse: 93 Temperature: 98.2 F NST Information Date on Monitor: 03/18/25 Time on Monitor: 11:55 Date off Monitor: 03/18/25 Time off Monitor: 12:20 Total Time on Monitor: 25 NST Interventions: PO Hydration NST Evaluation Patient States Movement: Present FHR Baseline: 145 Variability: Moderate 6-25 bpm Accelerations: 15x15 Decelerations: None NST Results: Reactive Note Ultrasound Done: NIC Indication: Other Largest Vertical Pocket: 3.74 Total NIC: 6.36 Other Pertinent Findings: Presentation and Other (incidental gross movement appreciated) Coding for NIC w/NST: Completed Exam and Presentation (breech) Coding for Presentation w/NST: Completed Exam. NST Note Note: 24 yo at 38 4/7 as dated by LMP equal to 9 wk US presents for NST for borderline low NIC in the setting of breech presentation. Patient is scheduled for section for 03/26/2025. complicated by obesity in , excessive wt gain in (+55 lbs), varicella non-immune. Rh+ / Rub I / VZV NI / GBS negative as of 03/14. Reports feeling well, today. Reports good movement and denies vaginal bleeding or cramping. Precautions reviewed. NST Reviewed and Verified by: Laura Arrington
[2025-03-22 10:01] VITALS: BP 126/85; PULSE 93; TEMP 36.8
--- NOTE | 2025-04-15 14:37 | W.OBNST ---
Date of service: 03/18/25 Time of Service: 17:00 NST Evaluation Reason for NST Reasons for Nonstress Test: OLIGOHYDRAMNIOS Gestational Age Gestational Age in Weeks and Days: 38 Weeks and 4Days Test and Monitor Explained Test/Monitor Explained: Test Explained, Monitor Explained and Patient Verbalized Understanding Vital Signs Blood Pressure: 126/85 Pulse: 93 Temperature: 98.2 F NST Information Time on Monitor: 11:55 Date off Monitor: 03/18/25 Time off Monitor: 12:20 NST Interventions: PO Hydration NST Evaluation Patient States Movement: Present FHR Baseline: 145 Variability: Moderate 6-25 bpm Accelerations: 15x15 Decelerations: None NST Results: Reactive Note Ultrasound Done: NIC Coding for NIC w/NST: Incomplete Exam (Limited bedside US; NIC is WNL). NST Note NST Reviewed and Verified by: Laura Arrington
[2025-04-15 14:38] VITALS: BP 126/85; PULSE 93; TEMP 36.8
[2025-05-07 16:48] VITALS: BP 126/85; PULSE 93; TEMP 36.8
== END 2025-03-18 12:35 | disposition other institution (70) ==
LOC: BCD 11:15 → OBS 12:01
PROVIDERS: PCP Nurse Practitioner Family; Visit Provider Obstetrics & Gynecology
DX: Z3A.38 38 weeks gestation of pregnancy (principal); O41.03X1 Oligohydramnios, third trimester, fetus 1
CPT/HCPCS: 59025

== ENCOUNTER 2025-03-21 07:40 | Outpatient (CLI) | payer OTHER, SELFPAY ==
[2025-03-21 11:48] VITALS: BP 123/77; PULSE 78; TEMP 36.6
[2025-03-21 12:02] VITALS: BP 123/77; PULSE 78
--- NOTE | 2025-03-21 12:20 | W.OBNST ---
NST Evaluation Reason for NST Reasons for Nonstress Test: OLIGOHYDRAMNIOS Gestational Age Gestational Age in Weeks and Days: 39 Weeks and 0Days Test and Monitor Explained Test/Monitor Explained: Test Explained, Monitor Explained and Patient Verbalized Understanding NST Information Time on Monitor: 11:40 Note Ultrasound Done: NIC Indication: Other Total NIC: 6 Other Pertinent Findings: Presentation (cephalic) and Placental Location (anterior).
--- NOTE | 2025-03-21 13:21 | PDOC.NST_ITS ---
Date of service: 03/21/25 Time of Service: 13:21 NST Evaluation Reason for NST Reasons for Nonstress Test: OLIGOHYDRAMNIOS Gestational Age Gestational Age in Weeks and Days: 38 Weeks and 4Days Test and Monitor Explained Test/Monitor Explained: Test Explained, Monitor Explained and Patient Verbalized Understanding Vital Signs Blood Pressure: 123/77 Pulse: 78 Temperature: 97.9 F NST Information Date on Monitor: 03/21/25 Time on Monitor: 11:40 Date off Monitor: 03/21/25 Time off Monitor: 12:20 Total Time on Monitor: 40 NST Interventions: PO Hydration NST Evaluation Patient States Movement: Present FHR Baseline: 140 Variability: Moderate 6-25 bpm Accelerations: 15x15 Decelerations: None NST Results: Reactive Note Ultrasound Done: Biophysical Profile Provider that performed the study: Audrey Morris Is this a repeat study?: No Amniotic Fluid: 2 Muscle Tone: 2 Body M ovements: 2 Breathing Movements: 2 NST Results: Reactive Total Biophysical Profile Score: 10 Other Pertinent Findings: Presentation (breech) Coding for Biophysical Profile w/NST: Completed Exam, NIC Coding for NIC w/NST: Completed Exam and Presentation Coding for Presentation w/NST: Completed Exam. NST Note NST Reviewed and Verified by: Audrey Morris
[2025-03-21 13:22] VITALS: BP 123/77; PULSE 78; TEMP 36.6
== END 2025-03-21 12:25 | disposition other institution (70) ==
LOC: BCD 07:58 → OBS 11:46
PROVIDERS: PCP Nurse Practitioner Family; Visit Provider Obstetrics & Gynecology
DX: O41.03X1 Oligohydramnios, third trimester, fetus 1 (principal); Z3A.38 38 weeks gestation of pregnancy
CPT/HCPCS: 59025

== ENCOUNTER 2025-03-24 03:09 | Outpatient (CLI) | payer OTHER, SELFPAY ==
[2025-03-24 11:27] LABS: Abs Immature Grans 0.17 10^3/uL (0.0-0.06); HCT 31.7 % (36.0-46.0); HGB 10.6 g/dL (11.2-15.7); Immature Grans % 1.8 %; MCH 29.2 pg (27.0-33.0); MCHC 33.4 % (32.0-36.0); MCV 87 fL (80-95); MPV 10.1 fL (8.0-11.0); Platelet Count 223 10^3/uL (130-400); RBC 3.63 10^6/uL (3.93-5.22); RDW 14.3 % (11.7-14.6); RDW-SD 46.5 fL; WBC 9.58 10^3/uL (4.4-10.8)
== END 2025-03-24 03:10 | disposition home or self-care (01) ==
LOC: LBO 03:09
PROVIDERS: PCP Nurse Practitioner Family; Visit Provider Obstetrics & Gynecology
DX: Z01.818 Encounter for other preprocedural examination (principal)
CPT/HCPCS: 36415; 86850; 86900; 86901; 85025

== ENCOUNTER 2025-03-26 06:42 | Inpatient (IN) | payer OTHER, SELFPAY ==
[2025-03-26] VITALS (54 sets, daily range): BP systolic 106–134; BP diastolic 57–79; PULSE 71–111; RESP 16–18; TEMP 36.7–37.3; O2SAT 96–100; BMI 43.0
[2025-03-26] MEDS: Lactated Ringers 1,000 ML 125 ML IV (06:45)
[2025-03-26] MEDS: AZITHROMYCIN 500 MG in Normal Saline 250 ML 250 MG IVPB (06:46)
[2025-03-26] MEDS: Normal Saline Flush 10 ML SYR IVP ×3 (06:56→21:09)
--- NOTE | 2025-03-26 07:20 | W.ANESPRE ---
General Info Date of Service Date Performed: 03/26/25 Height: 5 ft 1 in Weight: 103.419 kg Body Mass Index (BMI): 43.0 Surgical Procedure: Operation Date: 03/26/25 07:40 Proposed Procedure Side Surgeon p Section Audrey Morris DO Actual Procedure Side Surgeon p Section Not Applicable Audrey Morris DO Pre-Op Diagnosis Post-Op Diagnosis Breech Meds Allergies and Home Medications Allergies Allergy/AdvReac Type Severity Reaction Status Date / Time No Known Allergies Allergy Verified 03/24/25 10:25 Home Medication ?Medication ?Instructions ?Recorded azelastine 205.5 mcg (0.15 %) 1 spray NS BID PRN ##1 12/23/15 nasal spray (Astepro) inhalational spacing device #1 ea 01/17/22 ([employer] Aerochamber) loratadine 10 mg tablet 10 mg PO DAILY PRN allergy 01/17/22 symptoms #90 tab-caps albuterol sulfate 90 mcg/actuation 2 puff inhalation Q4H #8.5 grams 10/03/24 aerosol inhaler fluticasone propionate 50 1 spray intranasal DAILY PRN 10/03/24 mcg/actuation nasal sinusitis #16 grams spray,suspension vit no.95-ferrous 1 tab PO DAILY 10/07/24 fumarate 28 mg-folic acid 800 mcg tablet () triamcinolone acetonide 0.1 % 1 applic topical BID #30 grams 10/11/24 topical ointment ferrous gluconate 240 mg (27 mg 240 mg PO DAILY 30 days #30 tabs 12/31/24 iron) tablet alcohol swabs 1 pad topical QID #100 ea 01/30/25 blood sugar diagnostic (FreeStyle #100 ea 01/30/25 Lite Strips) blood-glucose meter (FreeStyle #1 ea 01/30/25 Lite Meter kit) lancets 28 gauge (FreeStyle #100 ea 01/30/25 Lancets) Current Visit Medications: Current Medications Generic Name Dose Route Start Last Admin Trade Name Freq PRN Reason Stop Dose Admin Ringer's Solution 1,000 mls @ 125 mls/hr 03/26/25 06:00 03/26/25 06:45 IV 125 mls/hr INFUSION KANWAL Administration Cefazolin Sodium/Dextrose 2 gm in 50 mls @ 100 mls/hr 03/26/25 06:00 Ancef Duplex IVPB PREOP KANWAL Sodium Chloride 0 ml 03/26/25 06:52 03/26/25 06:56 Normal Saline Flush 10 Ml Syr IVP 10 ml PRN PRN Administration PFSH Active Problems Active Problems: Problem Status Onset Code Numbness and tingling in both hands Acute R20.0, R20.2 Elevated glucose Acute R73.09 Breech presentation Acute O32.1XX0 Excessive weight gain affecting Acute O26.00 Acute Z34.90 Back pain Acute M54.9 BMI 31.0-31.9,adult Acute Z68.31 Maternal varicella, non-immune Acute O09.899, Z28.39 Anxiety and depression Acute F41.9, F32.9 Medical History Medical History (Updated 02/17/25 @ 15:51 by Lilly Mcguire) Abnormal Pap smear of cervix 09/2022. Initial screening pap: LGSIL. Cannot exclude HGSIL. No HPV testing done. 10/2022.Colpo bx. 01/02-Pap equals LSIL. Colpo 01/02?ECC with biopsy at 1:00-YAN II rec colpo with pap at 6 and 12 months (07/04 and 01/03) Colpo 07/10/2024. 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 Recommend conization via LEEP. Migraine with aura Constipation with ileus Surgical History Surgical History History of colposcopy with cervical biopsy 10/2022. ECC not processed. Cervical biopsy no dysplasia. Plan repeat Pap 2023 [place] teeth extracted Tobacco Smoking/Tobacco Use Status: Former Tobacco Use Passive smoking exposure: No Second hand exposure: No Alcohol Alcohol Intake: current Substance Use Substance use: Never Substance use type: does not use Prental History History 1 Para 0 Hx # Term Pregnancies 0 Multiple births 0 Hx # Pregnancies 0 Ectopic pregnancies 0 AB induced 0 Hx Number of Living Children 0 AB spontaneous 0 Vital Signs and Lab Results Vital Signs Most Recent Vital Signs in EMR: Most Recent Vital Signs Temp Pulse Resp BP Pulse Ox 37.3 C 105 H 16 121/79 96 03/26/25 06:42 03/26/25 06:47 03/26/25 06:06 03/26/25 06:06 03/26/25 06:47 Lab Results Blood Type / Crossmatch: Antibody Screen NEGATIVE 03/24/25 Complete Blood Count: WBC, (4.4-10.8) 9.58 10^3/uL 03/24/25, 11:21 RBC, (3.93-5.22) 3.63 10^6/uL L 03/24/25, 11:21 Hgb, (11.2-15.7) 10.6 g/dL L 03/24/25, 11:21 Hct, (36.0-46.0) 31.7 % L 03/24/25, 11:21 Plt Count, (130-400) 223 10^3/uL 03/24/25, 11:21 Anesthesia Assessment and Plan Anesthesia History Personal History: No History of Anesthesia Complications Family History: No Family History of Anesthesia Complications Exercise Tolerance Exercise Tolerance: Metabolic Equivalents>4 Pertinent Negatives Pertinent Negatives: No Major Cardiovascular Symptoms or Complaints and No Major Pulmonary Symptoms or Complaints Cardiac & Pulmonary Exam Cardiac Exam: Normal S1/S2 Heart Sounds Pulmonary Exam: Clear Bilateral Breath Sounds Cardiac and Pulmonary Comment:: Inhaler use with allergies and URI Implantable Cardiac Device Does patient have a Pacemaker or an ICD?: No Airway Exam Known Difficult Airway: No Mallampati Class: 3 (TMJ) Mouth Opening: Narrow (< 3cm) Thyromental Distance: Greater than 3 cm Neck Range of Motion: Full ROM Neck Circumference: Normal Teeth Condition: Normal Dentition ASA Classification ASA Score: ASA 3 Emergency Case?: No NPO Status NPO Status: NPO Clears >2 hours, Solids >8 hours Status Status: Confirmed Anesthesia Plan Resuscitation Status: Full Code Anesthesia Technique: Spinal Anesthesia Airway Planned: Natural Airway Monitors Used: Standard Monitors
[2025-03-26] MEDS: ceFAZolin 2 GM/50 ML BAG IVPB (07:46)
--- NOTE | 2025-03-26 08:20 | PLAC_PTH ---
PATIENT: Kendra Espinoza LOC: OBS U#:[id number] AGE/SX: 24/F ROOM: OBS.304 RE03/26/[address]: Audrey Morris DO : 2000 BED: A DIS: 03/28/2025 SPEC #: [id number] RECD: 03/26/25 13:03 STATUS: DOMO REQ #: [id number] MARLYN: 03/26/25 08:[address]: Audrey Morris DEPT: Surgical Specimen RECD BY: Sangeetha Mcgee ENTERED: 03/26/25 13:04 SP TYPE: PLAC OTHR DR: Lilly Marroquin Tissues: 1 - PLACENTA (3RD TRIMESTER) Procedures: GROSS AND MICRO LEVEL 5 Comments: [id number]
[2025-03-26] MEDS: Bupivacaine 0.25% Pres-Free 30 ML VIAL (08:35)
--- NOTE | 2025-03-26 09:14 | PDOC.OPNB_ITS ---
Date of service: 03/26/25 Time of Service: 09:14 Operative Note Operative Note Delivery Method: Scheduled and Primary NTSV>37 Weeks: No DATE OF PROCEDURE: 03/26/25 PRE-OP DIAGNOSES: at 39 weeks and 3 days, breech POST-OP DIAGNOSES: same PROCEDURE: Primary low-transverse section SURGEON: Audrey Morris Senior Compensation Consultant: Laura Arrington Anesthesia: local and spinal Pathology: other (Placenta for exam) Patient was transported to: floor Patient's condition: stable Indications: at 39 weeks, 3 days, known breech presentation, low fluid. Findings: Delivered a viable male with Apgars of 8 and 9 from monalisa breech presentation. Normal-appearing tubes, ovaries, uterus. Bright red vaginal bleeding after vaginal preparation. Procedure Description: After full informed consent was obtained, patient was taken the operating suite with an IV running. She was placed in the seated position and spinal anesthesia administered. She was placed in the dorsal supine position with leftward tilt and heart tones evaluated. She was prepped and draped in the usual sterile fashion including a vaginal preparation. She received 2 g of Ancef, and 500 mg of Zithromax prior to the procedure. Brown catheter was inserted for continuous bladder drainage. She had pneumatic compression stockings for DVT prophylaxis. After placement of the Brown catheter, she was noted to have a large, approximately 300 cc gush of bright red vaginal bleeding. Initial thought was traumatic Brown catheter insertion, however there was no bleeding around her catheter, and her urine was clear yellow. Vaginal examination performed with at that point, a small trickle of blood from the vaginal vault. Suspicion was for bleeding from the cervix. Patient has a known cervical dysplasia. At this point, a timeout was held. Quarter percent Marcaine was used to infiltrate at the surgical incision site. A Pfannenstiel skin incision was made and carried down to the underlying fascia. The fascia was incised in the midline and the fascial incision extended laterally. The fascia was from the rectus muscles with meticulous dissection. The rectus muscles were in the midline. The peritoneum was identified tented up and entered sharply and the peritoneal incision then extended superiorly and inferiorly. A bladder blade was inserted and the vesicouterine peritoneum identified tented up and incised. Bladder flap was created and the bladder blade was reinserted. A low transverse uterine incision was made with a scalpel and extended bluntly laterally. There was artificial rupture of membranes for clear fluid. The breech was delivered through the incision. With gentle downward traction, the body was delivered to the point that the scapulas were visualized. The right arm was swept through the incision, followed by the left arm. The vertex was flexed and delivered through the incision. There was no evidence of nuchal cord. A three-vessel cord was noted, and with the appropriate delay to cord clamping, the cord was clamped. Cord was then transected and the baby was handed off to the waiting restrike hammer operator. At this point cord sample was held for the possibility of cord gases, and a cord blood sample obtained. At this point, the placenta was manually expressed from the uterus and the uterus exteriorized and cleared of all clot and debris. There was a modest amount of uterine atony which responded to IV Pitocin. She did at this point, received 1 g of TXA IV. With the uterus exteriorized the uterus was cleared of all clot and debris. The uterine incision was closed using 0 Monocryl suture in a running locked fashion, followed by a second layer of 0 Monocryl suture in imbricating fashion. There was 1 area at the left apex of the incision which was nonhemostatic which was oversewn with a [id number] suture achieving hemostasis. The uterus was then returned to the abdomen. The abdomen was irrigated with copious amounts of normal saline. Qualitative blood loss at this point was 850 cc. Uterine incision was again inspected and noted be hemostatic. The fascial incision was closed using 0 Vicryl suture in a running fashion. Subcutaneous tissue was irrigated with copious amounts of normal saline and reapproximated with 3-0 Vicryl in a simple interrupted fashion. The skin was then reapproximated with 4-0 undyed Monocryl suture. Steri-Strips and Mepilex dressing were placed. The uterus was noted to be firm, 2 cm below the umbilicus. Due to the brisk vaginal bleeding at the time of vaginal preparation, speculum examination was performed. There was noted to be approximately another 250 cc of blood on the pads underneath, and 1 large clot expressed. Speculum examination confirmed a normal-appearing cervix visually, without active bleeding. At this point, the patient was transported from the surgical bed to her bed. She was taken to the center in stable condition with a Brown catheter draining clear yellow urine Qualitative blood loss:1250 ml Pathology: Placenta for exam Fluids: Crystalloid per anesthesia Findings: Delivery of a viable male infant with Apgars of 8 and 9 from monalisa breech presentation. Normal-appearing tubes, ovaries, uterus. Episode of bright red vaginal bleeding at the time of vaginal preparation hemostatic at the completion of her procedure. Normal visualization of the cervix which is small and nondilated. Complications: None apparent.
[2025-03-26] MEDS: Docusate Sodium 100 MG CAP PO (11:21)
[2025-03-26] MEDS: Acetaminophen 325 MG TAB 650 MG PO (11:21)
--- NOTE | 2025-03-26 11:47 | W.ANESPOSTOP ---
Postoperative Evaluation Date, Time and Location Date Performed: 03/26/25 Time Performed: 11:47 Patient Location: Obstetrics Vital Signs Most Recent Imported Vital Signs: Most Recent Vital Signs Temp Pulse Resp BP Pulse Ox 36.7 C 85 16 119/66 98 03/26/25 09:16 03/26/25 11:47 03/26/25 11:15 03/26/25 11:47 03/26/25 11:09 Pain Score Most Recent Pain Score: Most Recent Pain Score Pain Level 4 03/26/25 11:21 Assessment Mental Status: Awake (Alert & Oriented to Patient Baseline) Airway and Respiratory Function: Patent airway with normal (patient baseline) respiratory exam Cardiovascular Function: Hemodynamically Stable Hydration Status: Adequately Hydrated Nausea & Vomiting: No Nausea or Vomiting Pain: Pain is tolerable per patient Peripheral Nerve Block: Patient did not receive a nerve block
[2025-03-26] MEDS: Ketorolac 30 MG/ML VIAL 15 MG IVP ×2 (15:18→21:08)
[2025-03-26 17:07] LABS: Abs Immature Grans 0.14 10^3/uL (0.0-0.06); HCT 24.9 % (36.0-46.0); HGB 8.3 g/dL (11.2-15.7); Immature Grans % 1.1 %; MCH 29.3 pg (27.0-33.0); MCHC 33.3 % (32.0-36.0); MCV 88 fL (80-95); MPV 10.5 fL (8.0-11.0); Platelet Count 172 10^3/uL (130-400); RBC 2.83 10^6/uL (3.93-5.22); RDW 14.4 % (11.7-14.6); RDW-SD 46.5 fL; WBC 13.11 10^3/uL (4.4-10.8)
--- NOTE | 2025-03-26 17:50 | W.PM.OBPNV1 ---
Date of service: 03/26/25 Time of Service: 17:50 Exam Physical Exam Vital signs: Temp Pulse Resp BP Pulse Ox 98.6 F 71 16 112/60 96 03/26/25 16:20 03/26/25 16:20 03/26/25 16:20 03/26/25 16:20 03/26/25 16:20 Vital Signs Reviewed: Yes Narrative: Patient seen postop day 0. Doing well. Eating. Vital signs are stable. Appropriate drop in her hemoglobin based on her qualitative blood loss of 1250 cc from 10-8.3. Asymptomatic. Will monitor. Repeat CBC in the morning. Working on breast-feeding and ambulation tonight. Results Hemoglobin/Hematocrit: Hgb 8.3 g/dL (11.2-15.7) L D 03/26/25 16:54 Hct 24.9 % (36.0-46.0) L 03/26/25 16:54 Abnormal Lab Findings: Abnormal Labs 03/26/25 16:54 WBC 13.11 H RBC 2.83 L Hgb 8.3 L D Hct 24.9 L Absolute Neutrophils 10.53 H Absolute Monocytes 0.81 H
[2025-03-27] VITALS (7 sets, daily range): BP systolic 116–137; BP diastolic 70–85; PULSE 76–89; RESP 16–18; TEMP 36.7–37.3; O2SAT 95–98
[2025-03-27] MEDS: Ketorolac 30 MG/ML VIAL 15 MG IVP (03:00)
[2025-03-27 07:04] LABS: Abs Immature Grans 0.21 10^3/uL (0.0-0.06); HCT 24.5 % (36.0-46.0); HGB 8.1 g/dL (11.2-15.7); Immature Grans % 1.8 %; MCH 29.2 pg (27.0-33.0); MCHC 33.1 % (32.0-36.0); MCV 88 fL (80-95); MPV 10.6 fL (8.0-11.0); Platelet Count 176 10^3/uL (130-400); RBC 2.77 10^6/uL (3.93-5.22); RDW 14.6 % (11.7-14.6); RDW-SD 47.2 fL; WBC 11.88 10^3/uL (4.4-10.8)
--- NOTE | 2025-03-27 07:47 | W.PM.OBPNV1 ---
Date of service: 03/27/25 Time of Service: 07:47 Assessment and Plan Assessment and plan (1) Status post primary low transverse section: Status: Acute Assessment and plan: 24-year-old, postop day #1 status post primary low-transverse delivery for breech presentation at term. Overall doing well. Will increase ambulation today. Brown catheter and saline lock out today. Hemoglobin stable with an appropriate drop after 1200 cc blood loss. Asymptomatic currently. Will increase diet and activity. Anticipate discharge home in the next 24 to 48 hours if patient and baby remain stable. circumcision will happen today at patient's request. Subjective Subjective Interval history: Patient seen and examined this morning, postoperative day 1 status post primary low-transverse section for breech presentation. Baby was clearly macrosomic. circumcision to be performed today at patient's request. Pain is slightly increased over yesterday as her spinal has not worn off. We did discuss the appropriate bimal of use of oral pain medication. Brown catheter and saline lock will be removed today. Patient desires to shower. She is eating well. She has no nausea or vomiting. She has not yet passed flatus. Patient's Mood: Appropriate baby status: Doing well, Nursing well and Strong Bonding Observed Exam Physical Exam Vital signs: Temp Pulse Resp BP Pulse Ox 99.1 F 82 16 137/70 98 03/27/25 05:31 03/27/25 05:31 03/27/25 05:31 03/27/25 05:31 03/27/25 05:31 Vital Signs Reviewed: Yes Constitutional Constitutional: no acute distress HEENT Exam HEENT Exam: Normal Neck Exam Neck Exam: Normal Respiratory Exam Respiratory Exam: Normal Cardiovascular Exam Cardiovascular Exam: Normal Abdominal Exam Abdomen: Tender Comments: Mepilex in place. No shadowing Fundal Exam Fundus: Below Umbilicus and Firm Extremities Exam Extremity Exam: Normal and Edema (1+ bilateral); negative Calf Tenderness Neurological Exam Neurological Exam: Normal Psychiatric Exam Psychiatric Exam: Normal Results Hemoglobin/Hematocrit: Hgb 8.1 g/dL (11.2-15.7) L 03/27/25 06:17 Hct 24.5 % (36.0-46.0) L 03/27/25 06:17 Abnormal Lab Findings: Abnormal Labs 03/26/25 03/27/25 16:54 06:17 WBC 13.11 H 11.88 H RBC 2.83 L 2.77 L Hgb 8.3 L D 8.1 L Hct 24.9 L 24.5 L Absolute Neutrophils 10.53 H 9.14 H Absolute Monocytes 0.81 H
[2025-03-27] MEDS: Acetaminophen 325 MG TAB 650 MG PO ×3 (08:04→22:58)
[2025-03-27] MEDS: Ibuprofen 600 MG TAB PO ×3 (08:05→22:58)
[2025-03-27] MEDS: Docusate Sodium 100 MG CAP PO (08:05)
[2025-03-27] MEDS: Varicella Virus Vaccine (Live) 0.5 ML SC (09:13)
[2025-03-28 03:00] VITALS: BP 123/82; PULSE 79; RESP 16; TEMP 37; O2SAT 98
[2025-03-28] MEDS: Ibuprofen 600 MG TAB PO ×2 (05:12→11:09)
[2025-03-28] MEDS: Acetaminophen 325 MG TAB 650 MG PO ×2 (05:12→11:09)
[2025-03-28 07:45] VITALS: BP 129/82; PULSE 90; RESP 12; TEMP 37
--- NOTE | 2025-03-28 10:56 | W.PM.DS.N ---
Date of service: 03/28/25 Time of Service: 11:00 DS: Diagnosis Discharge Diagnosis (1) Status post primary low transverse section: Status: Acute Discharge Plan Disposition Patient Disposition: Home Condition: Good Discharge Details Reason For Visit: Labor Admit Date/Time: 03/26/25 06:42 Admit Provider: Audrey Morris Attending Provider: Audrey Morris Primary Care Provider: Lilly Marroquin Hospital Course Hospital Course: 24 yo presented to L&D at 39 weeks on 03/26/2025 for scheduled section for breech presentation. While undergoing her vaginal prep, she had an isolated episode of brisk vaginal bleeding; however, thorough examination both before and after the procedure did not identify any concerning lacerations or pathology. She underwent a primary low transverse section on that day otherwise without issue. Her recovery was largely on remarkable. Today, the patient reports feeling appropriate. She is eating, ambulating, and urinating without issue. She is passing flatus. She denies any concerns. She was counseled on the importance of close follow up as well as pelvic rest. Home Meds and New Rx's Prescriptions: New norethindrone (contraceptive) [Sienna] 0.35 mg tablet 0.35 mg PO DAILY 90 Days Qty: 90 4RF No Action loratadine 10 mg tablet 10 mg PO DAILY PRN (Reason: allergy symptoms) Qty: 90 4RF Rx Instructions: take one tablet once a day at bedtime triamcinolone acetonide 0.1 % ointment 1 applic topical BID Qty: 30 1RF Rx Instructions: apply thin layer to eczema lesions twice a day for 7 days albuterol sulfate 90 mcg/actuation HFA aerosol inhaler 2 puff Inhalation Q4H Qty: 8.5 3RF Rx Instructions: take 2 puffs (5 minutes apart) 15 minutes prior to exercise and every 4 hours as needed for wheezing fluticasone propionate 50 mcg/actuation spray,suspension 1 spray intranasal DAILY PRN (Reason: sinusitis) Qty: 16 0RF Rx Instructions: administer into each nostril azelastine [Astepro] 205.5 MCG/0.137 ML spray,non-aerosol 1 spray NS BID PRNQty: 1 Rx Instructions: use for allergies PNV no.95-ferrous fumarate-FA [] 28 mg iron- 800 mcg tablet 1 tab PO DAILY Discharge Instructions Additional Instructions: ? Eat a well-rounded diet ? Ambulate regularly and engage in light activity while avoiding repeated heavy lifting (over 10 pounds) ? Take your medications as prescribed ? Please be sure to attend your follow-up visits ? If you have an incision, be sure to keep it clean and dry using simple soap and water; avoid scrubbing to avoid damage to suture ? If you have been prescribed narcotics such as tramadol or oxycodone or [place], please note these medications have an addictive potential and should be used sparingly.? Please discard of any leftover medication either with your local pharmacy or by flushing the medication.? Do not share these medications with other individuals, and have a low threshold for seeking immediate medical evaluation if you experience any sleepiness, headaches, or any other concerns while using these medications. ? Please do not insert anything vaginally, including but not limited to, tampons, douching, or sexual intercourse, for a full 8 weeks and/or until you are medically cleared. ? If you have any concerns including fevers/chills, lightheadedness, visual changes, persistent headaches unresponsive to Tylenol, persistent nausea/vomiting, persistent abdominal pain, bruising and or leakage from your incision sites, excessive vaginal bleeding, or any other concerns, please have a low threshold for seeking immediate medical evaluation and/or reaching out to our clinic at [phone]. ? If you find yourself having crying spells you cannot explain, loss of appetite, persistent inability to sleep, lack of bonding with your baby, and/or general and persistent sadness, please feel free to reach out to our clinic immediately at [phone]. Stand Alone Forms: BC Instructions, BC Discharge Instruc Activity:: Pelvic rest x8 weeks Equipment/Supplies:: No Equipment Needed Diet:: As Tolerated Discharge Orders Discharge Orders: Discharge Order (Routine); Ordered 03/28/25 Ordered By: Laura Arrington Discharge Data Discharge Date/Time-TO BE ENTERED AT DEPARTURE: 03/28/25 11:25 DS: Summary Time Spent with Patient providing and/or coordinating discharge services: Less than 30 minutes Status at Discharge Functional status at discharge: independent ambulation Overall status at discharge: patient is progressing back to baseline Mental Status: mental status grossly normal Speech and Movement: speech and movement normal Mood: congruent mood Affect: normal affect Exam Narrative Exam Narrative: General: Well nourished female resting comfortably Pulm: No overt respiratory distress Abd: Gravid, non-tender Ext: No swelling Affect: Calm, cooperative Psych Mental Status: mental status grossly normal Speech and Movement: speech and movement normal Mood: congruent mood Affect: normal affect DS: Data Vitals/I&O Vitals and I&O: Vital Signs Temperature 98.6 F 03/28/25 07:45 Temperature Source Oral 03/28/25 07:45 Pulse 90 03/28/25 07:45 Pulse Rhythm Regular 03/28/25 07:45 Respiratory Rate 12 03/28/25 07:45 Respiratory Depth Normal 03/27/25 19:55 Blood Pressure 129/82 03/28/25 07:45 Blood Pressure Mean 97 03/28/25 07:45 Pulse Oximetry 98 03/28/25 03:00 Oxygen Delivery Method Room Air 03/26/25 06:06 Oxygen Flow Rate 0 03/26/25 06:06 Pain Level 3 03/27/25 19:55 Intake & Output 03/27/25 03/27/25 03/28/25 11:59 23:59 11:59 Output Total 105 / 0 999 / 2049 Balance -105 / -0 -1000 / -2049 Output: Urine 1050 / 0 999 / 2049 Other: Urine Color Yellow Yellow Urine Appearance Clear Clear Urine Odor Normal PFSH All Active Problems Status post primary low transverse section (Acute) Breech presentation, 03/26/2025, male [place] QBL 1250 mL Numbness and tingling in both hands (Acute) (Acute) Back pain (Acute) BMI 31.0-31.9,adult (Acute) Maternal varicella, non-immune (Acute) Anxiety and depression (Acute) Medical History Breech presentation Elevated glucose elevated fasting @ 32 wks, subsequent home monitoring WNL Excessive weight gain affecting Abnormal Pap smear of cervix 09/2022. Initial screening pap: LGSIL. Cannot exclude HGSIL. No HPV testing done. 10/2022.Colpo bx. 01/02-Pap equals LSIL. Colpo 01/02?ECC with biopsy at 1:00-YAN II rec colpo with pap at 6 and 12 months (07/04 and 01/03) Colpo 07/10/2024. 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 Recommend conization via LEEP. Migraine with aura Constipation with ileus Surgical History History of colposcopy with cervical biopsy 10/2022. ECC not processed. Cervical biopsy no dysplasia. Plan repeat Pap 2023 [place] teeth extracted Family History Mother Personal history of malignant neoplasm breast cancer Mental disorder anxiety, panic disorder Other Diabetes MGM, maternal great grandparents Asthma maternal side Sister Asthma Social History Smoking/Tobacco Use Status: Former Tobacco Use Second Hand Exposure: No Smoking risk assessment performed?: Yes Alcohol Intake: current Drug use: Never Substance use type: does not use Household members: family Housing: house Number of Children: 0 Education Level: college Details: [employer]. 2022. [employer]. 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 Education major. Pets and animals: Yes (2 dogs) Pets and animals: dog(s) Sexually active: Yes (Pt's BF Ambrosio. [employer] local combination truck driver.) Current gender identity: female What type of physical activity do you participate in: none Seatbelt use: always Helmet use: Yes Drive intox or ride w/intox local combination truck driver: No Do you feel safe at home: Yes Do you feel safe in your relationship?: Yes Additional Social history: Pt's mother is Laura Espinoza, Pt of [facility]. Female Reproductive History Menstrual Duration of menses: 6-7 days control method: none and condoms History History 1 Para 0 Hx # Term Pregnancies 0 Multiple births 0 Hx # Pregnancies 0 Ectopic pregnancies 0 AB induced 0 Hx Number of Living Children 0 AB spontaneous 0 Past Pregnancies Del. Date GA/Weeks # Preg Succ Route Wgt Sex Labor Lgth Anesthesia Location [facility] 03/26/25 38 Yes Male Madiha Morris Time Spent with Patient Time Spent with Patient: <45 minutes Time was spent: preparing to see the patient(eg.review tests), obtaining and/or reviewing separately otained hiistory, ordering medications,tests, procedures, referring, communicating with other health healthcare management consultant, indepentently interpreting results, counseling the patient and care coordination
== END 2025-03-28 11:25 | disposition home or self-care (01) | DRG 788 ==
PROVIDERS: Advanced Practice Midwife; Admitting Provider Obstetrics & Gynecology; PCP Nurse Practitioner Family; Visit Provider Obstetrics & Gynecology
PROC: 10D00Z1 Extraction of Products of Conception, Low, Open Approach (ICD-10-PCS; CPT 59514; principal; 2025-03-26 07:30)
DX: O32.1XX0 Maternal care for breech presentation, not applicable or unspecified (principal); Z37.0 Single live birth; Z3A.39 39 weeks gestation of pregnancy; O36.63X0 Maternal care for excessive fetal growth, third trimester, not applicable or unspecified; O99.892 Other specified diseases and conditions complicating childbirth; N87.1 Moderate cervical dysplasia; R79.1 Abnormal coagulation profile; O99.52 Diseases of the respiratory system complicating childbirth; O99.344 Other mental disorders complicating childbirth; F41.8 Other specified anxiety disorders; J45.20 Mild intermittent asthma, uncomplicated
CPT/HCPCS: 59514; 36415; 90716; 85025; 88307; J0456; J0665; J0690; J1885; J2274; J2371; J2405; J3010

== ENCOUNTER 2025-05-14 15:41 | Outpatient (REF) | payer OTHER, SELFPAY ==
--- NOTE | 2025-05-14 15:25 | ENDO_PTH ---
PATIENT: Kendra Espinoza LOC: N U#:[id number] AGE/SX: 24/F ROOM: RE05/14/[address]: Audrey Morris DO : 2000 BED: DIS: 05/14/2025 SPEC #: [id number] RECD: 05/14/25 17:04 STATUS: DOMO RERavi #: [id number] MARLYN: 05/14/25 15:[address]: Audrey Morris DEPT: Surgical Specimen RECD BY: Sangeetha Mcgee ENTERED: 05/14/25 17:04 SP TYPE: Endo OTHR DR: Lilly Marroquin Tissues: 1 - ENDOCERVICAL BX/CURRETTE Procedures: GROSS AND MICRO LEVEL 5 Comments: [id number]
== END 2025-05-14 15:42 | disposition home or self-care (01) ==
LOC: LBN 15:41
PROVIDERS: PCP Nurse Practitioner Family; Visit Provider Obstetrics & Gynecology
DX: N87.1 Moderate cervical dysplasia (principal)
CPT/HCPCS: 88305; 88307

== ENCOUNTER 2025-06-03 00:41 | Outpatient (CLI) | payer OTHER, SELFPAY ==
[2025-06-03 11:07] LABS: Abs Immature Grans 0.04 10^3/uL (0.0-0.06); HCT 38.3 % (36.0-46.0); HGB 12.1 g/dL (11.2-15.7); Immature Grans % 0.4 %; MCH 26.7 pg (27.0-33.0); MCHC 31.6 % (32.0-36.0); MCV 84 fL (80-95); MPV 9.6 fL (8.0-11.0); Platelet Count 381 10^3/uL (130-400); RBC 4.54 10^6/uL (3.93-5.22); RDW 13.7 % (11.7-14.6); RDW-SD 42.4 fL; WBC 8.94 10^3/uL (4.4-10.8)
== END 2025-06-03 00:42 | disposition home or self-care (01) ==
LOC: LBO 00:41
PROVIDERS: PCP Nurse Practitioner Family; Visit Provider Obstetrics & Gynecology
DX: Z01.818 Encounter for other preprocedural examination (principal)
CPT/HCPCS: 36415; 86850; 86900; 86901; 85025

== ENCOUNTER 2025-06-04 09:28 | Day surgery (SDC) | payer OTHER, SELFPAY ==
[2025-06-04] VITALS (14 sets, daily range): BP systolic 107–127; BP diastolic 56–77; PULSE 77–97; RESP 13–23; TEMP 36–36.5; O2SAT 96–99; BMI 36.8
--- NOTE | 2025-06-04 08:11 | ANES.PREOP_ITS ---
General Info Date of Service Date Performed: 06/04/25 Height: 5 ft 1 in Weight: 88.451 kg Body Mass Index (BMI): 36.8 Surgical Procedure: Operation Date: 06/04/25 10:40 Proposed Procedure Side Surgeon p Hysteroscopy DO michael Servin Colposcopy DO michael Servin Leep Cone Biopsy Audrey Morris DO Meds Allergies and Home Medications Allergies Allergy/AdvReac Type Severity Reaction Status Date / Time No Known Allergies Allergy Verified 06/04/25 10:01 Home Medication ?Medication ?Instructions ?Recorded azelastine 205.5 mcg (0.15 %) 1 spray NS BID PRN ##1 0 12/23/15 nasal spray (Astepro) loratadine 10 mg tablet 10 mg PO DAILY PRN allergy 0 01/17/22 symptoms #90 tab-caps albuterol sulfate 90 mcg/actuation 2 puff inhalation Q 4H #8.5 grams 10/03/24 aerosol inhaler fluticasone propionate 50 1 spray intranasal DAILY PRN 10/03/24 mcg/actuation nasal sinusitis #16 grams spray,suspension vit no.95-ferrous 1 tab PO DAILY 10/07/24 fumarate 28 mg-folic acid 800 mcg tablet () triamcinolone acetonide 0.1 % 1 applic topical BID #30 grams 10/11/24 topical ointment norethindrone (contraceptive) 0.35 0.35 mg PO DAILY 90 days #90 tabs 03/28/25 mg tablet (Sienna) Current Visit Medications: Current Medications Generic Name Dose Route Start Last Admin Trade Name Freq PRN Reason Stop Dose Admin Ringer's Solution 1,000 mls @ 125 mls/hr 06/04/25 06:00 IV 06/04/25 23:59 INFUSION KANWAL IV Miscellaneous Supplies 1 each 06/04/25 06:00 Iv Access IV 06/04/25 23:59 DIRECTED KANWAL Sodium Chloride 0 ml 06/04/25 06:00 Normal Saline Flush 10 Ml Syr IV 06/04/25 23:59 PRN PRN Sodium Chloride 0 ml 06/04/25 06:00 Normal Saline 10 Ml Vial IJ 06/04/25 23:59 DIRECTED PRN Sterile Water 0 ml 06/04/25 06:00 Water,Injection,Sterile 10 Ml Vial IJ 06/04/25 23:59 DIRECTED PRN PFSH Active Problems Active Problems: Problem Status Onset Code Abnormal ultrasound of endometrium Acute R93.5 Abnormal ultrasound Acute R93.89 Status post primary low transverse section Acute Z98.891 Numbness and tingling in both hands Acute R20.0, R20.2 Acute Z34.90 Back pain Acute M54.9 BMI 31.0-31.9,adult Acute Z68.31 Maternal varicella, non-immune Acute O09.899, Z28.39 Anxiety and depression Acute F41.9, F32.9 Medical History Medical History Breech presentation Elevated glucose elevated fasting @ 32 wks, subsequent home monitoring WNL Excessive weight gain affecting Abnormal Pap smear of cervix 09/2022. Initial screening pap: LGSIL. Cannot exclude HGSIL. No HPV testing done. 10/2022.Colpo bx. 01/02-Pap equals LSIL. Colpo 01/02?ECC with biopsy at 1:00-YAN II rec colpo with pap at 6 and 12 months (07/04 and 01/03) Colpo 07/10/2024. 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 Recommend conization via LEEP. Migraine with aura Constipation with ileus Surgical History Surgical History H/O section History of colposcopy History of colposcopy with cervical biopsy 10/2022. ECC not processed. Cervical biopsy no dysplasia. Plan repeat Pap 2023 [place] teeth extracted Tobacco Smoking/Tobacco Use Status: Former Tobacco Use Passive smoking exposure: No Second hand exposure: No Alcohol Alcohol Intake: former Substance Use Substance use: Never Substance use type: does not use Prental History History 1 Para 0 Hx # Term Pregnancies 0 Multiple births 0 Hx # Pregnancies 0 Ectopic pregnancies 0 AB induced 0 Hx Number of Living Children 0 AB spontaneous 0 Past Pregnancies Del. Date GA/Weeks # Preg Succ Route Wgt Sex Labor Lgth Anesth esia Location [facility] 03/26/25 39 Yes Male Madiha Olmedo son Vital Signs and Lab Results Vital Signs Most Recent Vital Signs in EMR: Temp Pulse Resp BP Pulse Ox 36.5 C 85 16 127/77 96 06/04/25 09:40 06/04/25 09:40 06/04/25 09:40 06/04/25 09:40 06/04/25 09:40 Lab Results Blood Type / Crossmatch: Antibody Screen NEGATIVE 06/03/25 Complete Blood Count: WBC, (4.4-10.8) 8.94 10^3/uL 06/03/25, 10:56 RBC, (3.93-5.22) 4.54 10^6/uL 06/03/25, 10:56 Hgb, (11.2-15.7) 12.1 g/dL 06/03/25, 10:56 Hct, (36.0-46.0) 38.3 % 06/03/25, 10:56 Plt Count, (130-400) 381 10^3/uL 06/03/25, 10:56 Panel: Urine HCG, Qual Negative 05/14/25, 15:22 Anesthesia Assessment and Plan Anesthesia History Personal History: Awareness Under Anesthesia Family History: No Family History of Anesthesia Complications Exercise Tolerance Exercise Tolerance: Metabolic Equivalents>4 Cardiac & Pulmonary Exam Cardiac Exam: Normal S1/S2 Heart Sounds Pulmonary Exam: Clear Bilateral Breath Sounds Implantable Cardiac Device Does patient have a Pacemaker or an ICD?: No Airway Exam Known Difficult Airway: No Mallampati Class: 3 (TMJ) Mouth Opening: Narrow (< 3cm) Thyromental Distance: Greater than 3 cm Neck Range of Motion: Full ROM Neck Circumference: Normal Teeth Condition: Normal Dentition Airway Comments: TMJ ASA Classification ASA Score: ASA 2 Emergency Case?: No NPO Status NPO Status: NPO Clears >2 hours, Solids >8 hours Status Status: Negative HCG Anesthesia Plan Resuscitation Status: Full Code Anesthesia Technique: General Anesthesia Airway Planned: LMA Monitors Used: Standard Monitors Preoperative Comments:: 24 yo for hysteroscopy. Sig PMHx: asthma (albuterol), anxiety/depression. Former smoker/EtOH. Previous Anes: history of awareness during dental procedure. - c section, spinal, no issues. Has TMJ, discussed plan for LMA, but with limited mouth opening and TMJ may switch to ETT.
[2025-06-04] MEDS: Lactated Ringers 1,000 ML 125 ML IV (10:15)
--- NOTE | 2025-06-04 12:10 | CER_PTH ---
PATIENT: Kendra Espinoza LOC: [facility] U#:[id number] AGE/SX: 24/F ROOM: RE06/04/[address]: Audrey Morris DO : 2000 BED: DIS: 06/04/2025 SPEC #: [id number] RECD: 06/04/25 12:44 STATUS: DOMO REQ #: [id number] MARLYN: 06/04/25 12:[address]: Audrey Morris DEPT: Surgical Specimen RECD BY: Sangeetha Mcgee ENTERED: 06/04/25 12:46 SP TYPE: CER OTHR DR: Lilly Marroquin Tissues: 1 - CERVICAL CONE BX Procedures: GROSS AND MICRO LEVEL 5 Comments: [id number]
[2025-06-04] MEDS: Silver Nitrate Stick 1 EACH (12:16)
--- NOTE | 2025-06-04 12:18 | ROE_ITS ---
Operative Note Operative Note PRE-OP DIAGNOSIS: Cervical dysplasia, uterine mass POST-OP DIAGNOSIS: same PROCEDURE: Hysteroscopy, loop electrocautery excisional procedure SURGEON: Audrey Morris ANESTHESIA TYPE: General LMA/ETT Refer to Anesthesia Record ESTIMATED BLOOD LOSS: 50 PATHOLOGY: other (Cervical conization via LEEP procedure) COMPLICATIONS: None Patient was transported to: same day Patient's condition: stable Indications: Uterine mass noted at the lower uterine segment at the incisional site from her on ultrasound. Known cervical dysplasia, YAN-2 Findings: Smooth regular endometrial cavity. Divot at the uterine scar site with no mass appreciated. No hypervascularity. Normal-appearing cervix. Procedure Description: After full informed consent was obtained, patient taken the operating suite with an IV running. She was placed in dorsal supine position and general anesthesia administered via LMA. She was then placed in the modified dorsal lithotomy position and exam under anesthesia performed. She was prepped and draped in usual sterile fashion. No antibiotic prophylaxis was warranted. She had pneumatic compression stockings for DVT prophylaxis. A speculum was inserted into the vaginal vault. Cervical os identified and grasped with a single-tooth tenaculum. Cervical os dilated point that a 4 mm hysteroscope could be passed without difficulty. Hysteroscope was inserted into the cervix and visualization of the entire endometrium was undertaken. The endometrium appears smooth and regular. Both tubal ostia were visualized. There was evidence of a divot at the uterine scar site which would be typical for her previous delivery. There is no mass appreciated. At this point, hysteroscope portion was discontinued. Loop electrocautery excisional procedure was performed with patient a cautery setting at 60?60, blend 1. The cervical conization was performed without difficulty. The area of the base of the loop electrocautery excisional procedure, conization, was cauterized with a ball-tipped cautery. Hemostasis was achieved. Monsel solution was placed over the base of the conization. The tenaculum was removed. Right puncture site was not hemostatic which was chemically cauterized with silver nitrate achieving hemostasis. Speculum was then removed and the patient was returned to the dorsal supine position and awoke from anesthesia without difficulty. She was taken the postanesthesia care unit in stable condition. EBL: 50 mL Fluids: Crystalloid per anesthesia plus approximately 50 cc fluid deficit for hysteroscope. Pathology: Cervical conization for examination Complications: None apparent Findings: Smooth regular endometrial cavity with the appropriate surgical scar. No intrauterine masses were appreciated. Digital imaging was taken. Normal- appearing cervix with cervical conization performed. Date of Procedure: 06/04/25
--- NOTE | 2025-06-04 12:41 | W.ANESPOSTOP ---
Postoperative Evaluation Date, Time and Location Date Performed: 06/04/25 Time Performed: 12:41 Patient Location: PACU Vital Signs Most Recent Imported Vital Signs: Most Recent Vital Signs Temp Pulse Resp BP Pulse Ox 36.4 C L 80 13 112/60 99 06/04/25 12:33 06/04/25 12:35 06/04/25 12:35 06/04/25 12:35 06/04/25 12:35 Pain Score Most Recent Pain Score: Most Recent Pain Score Pain Level 0 06/04/25 12:33 Assessment Mental Status: Awake (Alert & Oriented to Patient Baseline) Airway and Respiratory Function: Patent airway with normal (patient baseline) respiratory exam Cardiovascular Function: Hemodynamically Stable Hydration Status: Adequately Hydrated Nausea & Vomiting: No Nausea or Vomiting Pain: Pain is tolerable per patient Peripheral Nerve Block: Patient did not receive a nerve block
== END 2025-06-04 13:56 | disposition home or self-care (01) ==
PROVIDERS: PCP Nurse Practitioner Family; Visit Provider Obstetrics & Gynecology
PROC: 0UJD8ZZ Inspection of Uterus and Cervix, Via Natural or Artificial Opening Endoscopic (ICD-10-PCS; CPT 58555; principal; 2025-06-04 10:30)
PROC: 0UJH8ZZ Inspection of Vagina and Cul-de-sac, Via Natural or Artificial Opening Endoscopic (ICD-10-PCS; CPT 58558; 2025-06-04 10:30)
PROC: 0UBC7ZZ Excision of Cervix, Via Natural or Artificial Opening (ICD-10-PCS; CPT 57522; 2025-06-04 10:30)
DX: N87.1 Moderate cervical dysplasia (principal); R93.89 Abnormal findings on diagnostic imaging of other specified body structures
CPT/HCPCS: 58558; 57522; 81025; 88307; J0131; J1100; J1885; J2250; J2405; J2704; J3010; J3475